=== PATIENT | female | born 2000 | race Caucasian/White ===

== ENCOUNTER 2025-10-10 09:37 | Emergency (ER) | payer OTHER, SELFPAY ==
--- NOTE | ~2025-10-10 | US_ITS ---
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 Findings: Uterus anteverted 8.9 x 3.4 x 4.7 cm, no intrauterine gestational sac is identified. Endometrium measures 3 mm. Right ovary 3.1 x 1.2 x 2.9 cm, no adnexal mass, normal flow. Left ovary 2.8 x 1.6 x 2.6 cm, no adnexal mass, normal flow. IMPRESSION: 1. No acute process identified. Reviewed, dictated and finalized at location P. PROCESS OPERATOR
[2025-10-10 09:46] VITALS: BP 135/84; PULSE 96; RESP 16; TEMP 36.7; O2SAT 98
[2025-10-10 10:03] LABS: Hematocrit 42.9 % (37.0-47.0); Hemoglobin 14.8 g/dL (12.0-15.0); Immature Granulocyte Percent A 0.5 % (0-0.5); Lymphocytes Absolute Auto 1.60 K/mm3 (0.9-3.2); Mean Corpuscular HGB Conc 34.5 g/dl (32-36); Mean Corpuscular Hemoglobin 30.6 pg (26-34); Mean Corpuscular Volume 88.8 fl (80-100); Nucleated Red Blood Cells Absolute Auto 0.000 K/mm3 (0.0-0.012); Nucleated Red Blood Cells Perc 0.0 % (0.0-0.2); Platelet Count Result 251 k/mm3 (150-375); Red Blood Count 4.83 M/mm3 (4.2-5.4); White Blood Count 8.0 K/mm3 (4.5-10.0)
--- NOTE | 2025-10-10 10:09 | ED_ITS ---
HPI - Female Genitourinary General Chief complaint: Vaginal Bleeding Stated complaint: 6 weeks , bleeding Time Seen by Provider: 10/10/25 10:06 Source: patient Mode of arrival: ambulatory Limitations: no limitations History of Present Illness HPI Narrative: Patient came to the ED with vaginal bleeding that began this morning. Patient report possible 6 weeks . The bleeding started as light pink spotting then got worse. With slight suprapubic cramps. Patient is 2 para 0 1. Related Data Allergies Allergy/AdvReac Type Severity Reaction Status Date / Time No Known Allergies Allergy Verified 10/10/25 09:49 Review of Systems 2 Review of Systems: All systems reviewed & are unremarkable except as noted in HPI and below Exam 2 Narrative: General appearance: Well-developed, well-nourished Skin: Normal color Head: Normocephalic, nontraumatic Eyes: Clear conjunctiva ENT: Oropharynx normal, ears normal, nose normal Neck: Supple, nontender Chest and respiratory: Airway patent, no respiratory distress, no accessory muscle use Heart: Regular rate/rhythm Abdomen: Soft, nontender, no organomegaly, quiet bowel sounds Vascular: Normal peripheral pulses, normal capillary refill. 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 is normal as tested, no gross motor deficit : External Female Exam: normal external appearance and normal appearance of the urethra Speculum Exam - Vagina: normal appearance of the vagina, normal palpation and vaginal bleeding (Vaginal pouch was dried using 2 long Q-tips) Speculum Exam - Cervix: Cervical os closed Course Vital Signs Vital signs: Vital Signs Temperature 36.7 C 10/10/25 09:46 Pulse Rate 96 10/10/25 09:46 Respiratory Rate 16 10/10/25 09:46 Blood Pressure 135/84 10/10/25 09:46 Pulse Oximetry 98 10/10/25 09:46 Oxygen Delivery Room Air 10/10/25 09:46 Temperature 36.7 C 10/10/25 09:46 Pulse Rate 82 10/10/25 12:20 Respiratory Rate 14 10/10/25 12:20 Blood Pressure 114/72 10/10/25 12:20 Pulse Oximetry 98 10/10/25 12:20 Oxygen Delivery Room Air 10/10/25 09:46 MDM - Female Genitourinary MDM Narrative Medical decision making narrative: Patient presents with badge bleed, questionable in the last few weeks Vital signs are stable Physical examination showing slight vaginal bleed otherwise within normal limit Differential diagnosis miscarriage, false complete , threatened Blood workup today showed normal CBC and CMP, beta hCG of 30 0.4 Urinalysis showed no evidence of infection. Bili consistent showed no acute process. Patient was advised to repeat beta-hCG in the next 5 days to rule out the possibility of miscarriage. Differential Diagnosis Differential diagnosis: Likely other (As above) Lab Data Attestation: I reviewed the patient's lab results. 10/10/25 09:54 10/10/25 09:54 Labs: Lab Results 10/10/25 10/10/25 Range/Units 09:53 09:54 WBC 8.0 (4.5-10.0) K/mm3 RBC 4.83 (4.2-5.4) M/mm3 Hgb 14.8 (12.0-15.0) g/dL Hct 42.9 (37.0-47.0) % MCV 88.8 (80-100) fl MCH 30.6 (26-34) pg MCHC 34.5 (32-36) g/dl RDW 12.6 (11.5-14.5) % Plt Count 251 (150-375) k/mm3 MPV 9.4 (7.4-10.4) fl Immature Gran % (Auto) 0.5 (0-0.5) % Neut % (Auto) 68.2 (45.5-73.1) % Lymph % (Auto) 20.1 (18.3-44.2) % [place] % (Auto) 9.4 H (2.6-8.5) % Eos % (Auto) 1.0 (0-4.4) % Baso % (Auto) 0.8 (0.2-1.2) % Lymph # (Auto) 1.60 (0.9-3.2) K/mm3 [place] # (Auto) 0.8 H (0.1-0.6) K/mm3 Eos # (Auto) 0.1 (0-0.3) K/mm3 Baso # (Auto) 0.1 (0.0-0.1) K/mm3 Abs Immat Gran (auto) 0.04 H (0.00-0.031) K/mm3 Absolute Neuts (auto) 5.4 (1.3-6.7) K/mm3 Absolute Nucleated RBC 0.000 (0.0-0.012) K/mm3 Nucleated RBC % 0.0 (0.0-0.2) % PT 12.1 (11.1-14.7) Seconds INR 0.9 APTT 23.5 (22.3-36.8) Seconds Sodium 137 (137-145) mmol/L Potassium 3.8 (3.4-5.0) mmol/L Chloride 104 (98-107) mmol/L Carbon Dioxide 24 (22-30) mmol/L Anion Gap 9 (4-12) mmol/L BUN 9 (7-17) mg/dL Creatinine 0.80 (0.7-1.0) mg/dL Estim Creat Clear Calc 101 ml/min Estimated GFR > 60 (59 - ) Glucose 103 (65-110) mg/dL Calcium 9.7 (8.4-10.2) mg/dL Total Bilirubin 0.8 (0.2-1.3) mg/dL AST 27 (14-36) U/L ALT 24 (6-35) U/L Alkaline Phosphatase 60 (38-126) U/L Total Protein 8.3 H (6.3-8.2) g/dL Albumin 4.9 (3.5-5.1) g/dL Beta HCG, Quant 30.41 mIU/ML Urine Color Yellow (Yellow) Urine Appearance Clear (Clear) Urine pH 5.0 (5.0-9.0) Ur Specific [place] 1.016 (1.001-1.035) Urine Protein Trace (Negative) mg/dL Urine Glucose (UA) Negative (Negative) mg/dL Urine Ketones Negative (Negative) mg/dL Ur Blood (Man) 3+ H (Negative) Urine Nitrate Negative (Negative) Urine Bilirubin Negative (Negative) Urine Urobilinogen 0.2 (<2.0) mg/dL Add Ur Microanalysis Reviewed Leukocyte Esterase Rfl 1+ H (Negative) FATOU/UL Urine RBC 21-50 H (0-2) /hpf Urine WBC 0-5 (0-3) /hpf Ur Squamous Epith Cells Few (Few) /hpf Urine Bacteria None seen /hpf Urine Casts 0-2 POC Urine HCG, Qual Negative (Negative) Blood Type A Positive Antibody Screen Negative Screen Not Reportable Baby's Blood Type Not Reportable Baby's CHEVY Not Reportable Doses of RhIg Required 0 Imaging Data Radiologist's impression: Pelvic ultrasound showed no acute process identified Critical Care Time Critical Care Time Critical Care Time: No Discharge Plan Discharge Clinical Impression: Threatened Patient Disposition: Home Condition: Stable Instructions: Threatened Miscarriage (ED) Additional Instructions: Return if symptoms are worsening , call your OBGYN for appointment, take Tylenol as as needed for aches and pain, continue home medications. Bed rest, pelvic rest Patient Language: Turkish Follow-up/Referrals: PHYSICIAN,ADMINISTRATIVE DIRECTOR [Non-Staff, Internal Medicine] Stand Alone Forms: Work/School Release IP
[2025-10-10 10:14] LABS: Alanine Aminotransferase 24 U/L (6-35); Albumin Level 4.9 g/dL (3.5-5.1); Alkaline Phosphatase 60 U/L (38-126); Anion Gap 9 mmol/L (4-12); Aspartate Amino Transferase 27 U/L (14-36); Bilirubin,Total 0.8 mg/dL (0.2-1.3); Blood Urea Nitrogen 9 mg/dL (7-17); Calcium 9.7 mg/dL (8.4-10.2); Carbon Dioxide 24 mmol/L (22-30); Chloride 104 mmol/L (98-107); Estimated CRCL calculation 101 ml/min; Estimated Glomerular Filt Rate > 60; Glucose 103 mg/dL (65-110); Potassium 3.8 mmol/L (3.4-5.0); Sodium 137 mmol/L (137-145); Total Protein 8.3 g/dL (6.3-8.2)
[2025-10-10 10:21] LABS: INR 0.9; Prothrombin Time 12.1 Seconds (11.1-14.7)
--- OUTSIDE RECORDS SUMMARY | 2025-10-10 10:21 | XMS_ITS | Data Portability ---
Author Organization [employer] , [facility] Address [address] [place] [address] Assessment No assessment recorded. Plan of Treatment Reminders Order Date Submit Date Provider Last Modified By Organization Details Last Modified Time Details Appointments None recorded. Lab bacterial vaginosis + vaginitis panel, vaginal 2023 024 [employer], [address] [place], [address], 4 13:37:45 pap, LB 2023 024 [employer] [facility], [address] [facility], [place], [address], 4 16:59:39 unlisted lab - Pap reflex hold 2023 024 [place] [address] Vennli Dave, [address] [place], [address], 4 13:27:58 Referral None recorded. Procedures None recorded. Surgeries None recorded. Imaging None recorded. Medication Orders NuvaRing 0.12 mg-0.015 mg/24 hr vaginal 2023 024 [employer] [id number], [address] [place], [place], [id number], 11:41:35 Patient TargetsNo targets recorded. Patient Instructions Encounter Date Encounter Id Patient Instructions Last Modified By Organization Details Last Modified Time 05/08/2024 [id number] safer sex: care instructions Not available 05/08/2024 11:41:28 sexually transmitted disease education Not available 05/08/2024 11:41:28 How to Prevent STIs Abstinence or waiting The simplest way of preventing STDs is by not having sex. Safer sex Only have sex with one uninfected partner who has only had safe sex with you. Talk to your partner about STIs. Find out if he/she has been tested or exposed to an STI. Discuss previous sexual activities and any injection drug use or shared needles. Talk openly about your history as well. Condoms Be sure to use them every time you have sex. Male latex condoms can reduce the risk of getting an STI if used correctly. Female condoms can also be used as an alternative to a male condom. Vaccines for STIs Some STIs, such as Hepatitis A, Hepatitis B and certain strains of human papillomavirus (HPV) that cause genital warts and cervical cancer, can be prevented through the use of vaccines. Not available 05/10/2024 18:53:04 Reason for Referral None Reported. Results Created Date Observation Date Name Description Value Unit Range Abnormal Flag Note LastModifiedBy Organization Detail LastModifiedTime 05/08/20 24 05/11/2024 VAGIN ITIS PLUS STD PANEL bacterial vaginosis BV POS negati ve abnormal Not Available [employer] [address] [place] [address], [address], 05/11/2024 13:37:45 05/08/20 24 05/11/2024 VAGIN ITIS PLUS STD PANEL hoda species C. spp neg negati ve normal Not Available [employer] [place], [address], 05/11/2024 13:37:45 05/08/20 24 05/11/2024 VAGIN ITIS PLUS STD PANEL hoda glabrata C. gla neg negati ve normal [place], [address], 05/11/2024 13:37:45 05/08/20 24 05/11/2024 VAGIN ITIS PLUS STD PANEL trichomonas vaginalis CV/TV TRICH neg negati ve normal [place], [address], 05/11/2024 13:37:45 05/08/20 24 05/11/2024 VAGIN ITIS PLUS STD PANEL chlamydia trachomatis CT neg negati ve normal This repor t is inten ded for us in clini harinder monit oring and manag ement of patie nts. It is not inten ded for use in medic al-le gal appli catio n. Not Available [address], [address], 05/11/2024 13:37:45 05/08/20 24 05/11/2024 VAGIN ITIS PLUS STD PANEL neisseria gonorrhoeae GC neg negati ve normal This repor t is inten ded for us in clini harinder monit oring and manag ement of [facility] nts. It is not inten ded for use in medic al-le gal appli catio n. Not Available [facility] [address] [place], [address], 05/11/2024 13:37:45 05/08/20 24 05/12/2024 THINP REP TIS PAP clinical information: normal None given Not Available [employer] [address] [place], [address], 05/12/2024 16:59:39 05/08/20 24 05/12/2024 THINP REP TIS PAP LMP: normal NONE GIVEN Not Available [employer] [place] [address] [place], [address], 05/12/2024 16:59:39 05/08/20 24 05/12/2024 THINP REP TIS PAP prev. Pap: normal NONE GIVEN Not Available [facility] [address] [place], [address], 05/12/2024 16:59:39 05/08/20 24 05/12/2024 THINP REP TIS PAP prev. BX: normal NONE GIVEN Not Available [facility] [place] [address] [place], [address], 05/12/2024 16:59:39 05/08/20 24 05/12/2024 THINP REP TIS PAP source: normal Cervi x Not Available [place] [address] [place], [address], 05/12/2024 16:59:39 05/08/20 24 05/12/2024 THINP REP TIS PAP statement of adequacy: normal Satis facto ry for evalu ation . Endoc ervic al/tr ansfo rmati on zone compo nent prese nt. Age and/o r menst rual statu s not provi ded Not Available [place] [address] [place], [address], 05/12/2024 16:59:39 05/08/20 24 05/12/2024 THINP REP TIS PAP interpretati on/result: normal Cytol ogy Resul ts: Negat los for intra epith elial lesio n or malig olga . Not Available [place] [address] [place], [address], 05/12/2024 16:59:39 05/08/20 24 05/12/2024 THINP REP TIS PAP infection: normal Shift in vagin al russell sugge stive of bacte rial vagin osis. Not Available [place] [address] [address] [place], [address], 05/12/2024 16:59:39 05/08/20 24 05/12/2024 THINP REP TIS PAP comment: normal This Pap test has been evalu ated with compu ter vicenta jasmine techn ology . Not Available [place] [address] [address] [place], [address], 05/12/2024 16:59:39 05/08/20 24 05/12/2024 THINP REP TIS PAP cytotechnolo gist: normal MEF, CT( CP) CT scree crissy locat ion: [place] [address] [place] [address] Not Available [address] [place], [address], 05/12/2024 16:59:39 05/08/20 24 05/12/2024 THINP REP TIS PAP comment EXPLA ANGELES Ackerman NOTE: The Pap is a scree crissy test for cervi harinder cance r. It is not a diagn ostic test and is subje ct to false negat los and false posit los resul ts. It is most relia ble when a satis facto ry sampl e, regul bouchra obtai jeannine, is submi tted with relev ant clini harinder findi ngs and histo ry, and when the Pap resul t is evalu ated along with histo ihsan and curre nt clini harinder infor matio n. Not Available [facility] [address] , [place], [address], 05/12/2024 16:59:39 Result Notes None recorded. Problems Name Problem SNOMED Code Status Onset Date Resolution Date Notes Provider Name and Address Organization Details Recorded Time Bacterial vaginosis 255913258 Active 024 Galdino King, [facility] [address] [place], [address], [facility] [employer] [facility] 20:15:30 Problem Notes None recorded. Medical Equipment None Reported. Allergies No known drug allergies Medications Name Sig Start Date Stop Date Status Note LastModified by Organization Details LastModified Time metronidazo le 500 mg tablet TAKE 1 TABLET BY MOUTH TWICE DAILY FOR 7 DAYS active Not Available Not Available No t Available oseltamivir 75 mg capsule TAKE 1 CAPSULE BY MOUTH TWICE DAILY FOR 5 DAYS 05/08 completed Not Available Not Available Not Available ondansetron 4 mg disintegrat ing tablet 05/08 completed Not Available Not Available Not Available Haloette 0.12 mg-0.015 mg/24 hr vaginal ring INSERT 1 RING VAGINALLY EVERY MONTH active Not Available Not Available No t Available Vitals None Recorded Social History Question Answer Notes LastModified by Organizat ion Details LastModified Time Tobacco Smoking Status Current Every Day Smoker Betina mcgarry, [employer] [facility] 05/08/2024 11:02:33 If You Are , What Was Your Level Of Alcohol Consumption Prior To ? None Information not available 05/08/2024 How Many Years Have You Consumed Alcohol? 3 Information not available 05/08/2024 Are You Blind Or Do You Have Difficulty Seeing? No Information not available 05/08/2024 Are You Deaf Or Do You Have Serious Difficulty Hearing? No Information not available 05/08/2024 What Type Of Diet Are You Following? REGULAR Information not available 05/08/2024 Which Illicit Or Recreational Drugs Have You Used? Cannabis Information not available 05/08/2024 How Many Children Do You Have? 0 Information not available 05/08/2024 What Is Your Relationship Status? Single Information not available 05/08/2024 Are You Sexually Active? Yes Information not available 05/08/2024 At What Age Did You Start Smoking Tobacco? 18 Information not available 05/08/2024 How Much Tobacco Do You Smoke? 1 PPW Information not available 05/08/2024 How Many Years Have You Smoked Tobacco? 5 Information not available 05/08/2024 Sex: Unknown Functional Status Question Answer Note LastModified by Organizat ion Details LastModified Time How many times per week do you consume alcohol? 1-2 times per week Information not available 05/08/2024 Do you use any illicit or recreational drugs? Yes Information not available 05/08/2024 What is your level of alcohol consumption? Moderate Information not available 05/08/2024 Are you currently employed? Yes Information not available 05/08/2024 What is your exercise level? Occasional Information not available 05/08/2024 Mental Status None recorded. Family History Relationship Description Onset Age of this Age Resolved Age Notes LastModified by Organization Details LastModified Time Maternal Grandmother Malignant neoplasm of breast Not available 2023 11:02:33 Maternal Grandmother Malignant neoplasm of ovary Not available 2023 11:02:33 Maternal Grandfather Hypertensive disorder Not available 2023 11:02:33 Medical History Condition Response Anxiety Disorder Y Bipolar Disorder Y Gynecological History Statement/Question Response Date of Last Colonoscopy Flow Heavy Frequency of Cycle (Q days) 33 Date of LMP 05/03/2024 Most Recent Bone Density HPV Vaccine Y Duration of Flow (days) 5 Most Recent Mammogram Current Control Method Condoms Age at Menarche 15 Obstetrics History GPAL:G 0 P 0 0 0 0 Type Value Living 0 Total 0 Past Encounters Encounter ID Performer Location Encounter Start Date Encounter Closed Date Diagnosis/Indication Diagnosis SNOMED-CT Code Diagnosis ICD10 Code Diagnosis IMO Codes Diagnosis Note [id number] SOCO Humphrey [facility] h [address] [place] [address] 05/08/2024 10:48:27 05/08/2024 13:45:42 Venereal disease screening 563452723 Z11.3 Discussed the various types of STDs, related symptoms and the potential consequenc es (including effects on fertility) of STD infections . Reviewed ways to limit exposure and prevention techniques . Family vane nning education 812278036 Z30.8 *Contracep tive counseling : Discussed other control options, including BCPs, depo-prove ra, NuvaRing, hormonal and copper IUDs.*Disc ussed risks, efficacy, no-non-con traceptive benefits, and side effects of each option,inc luding risk of VTE with hormonal contracept ion and uterine perforatio n, expulsion, infection with IUD. Lori decided to try Nuvaring Combinatio n contracept ion may cause nausea, headaches, breast tenderness , and increased B/P. Slight increased risk for VTE. If headaches, eye problems, chest-, abdominal, and and/or leg pains, stop the control and go to the ER. Reviewed correct usage of the vaginal ring. R/B, explained ACHES. Additional diagnosis detail: Encounter for other contracept los management Screening for malignant neoplasm of cervix 262074990 Z12.4 Cervical cancer screening is used to find abnormal changes in the cells of the cervix that could lead to cancer. Screening includes the Pap test and, for some women, testing for a virus called human papillomav irus (HPV). The main cause of cervical cancer is infection with HPV. Additional diagnosis detail: Encounter for screening for malignant neoplasm of cervix Health Concerns Section Related Observation LastModified by Organization Detai ls LastModified Time None Recorded Concern Status LastModified by Organization Details LastModified Time None Recorded Advance Directives Directive None Recorded Payers Insurance Date Sequence Insurance Name Policy Number Policy Coyle Covered Member ID Coyle Member ID Guarantor Name 05/08/2024 1 [facility] - DOS ON OR AFTER 21 (MEDICAID REPLACEMENT - HMO) Lori Lucas [id number] Lori Lucas 05/08/2024 1 [place] Lori Lucas [id number] Lori Lucas Notes Date Note Type Note Provider Name and Address Organization Details Recorded Time 4 text/html STD screeningReported by PatientDischargeFor associated symptoms, patient reportsvaginal itchingbut reportsno vaginal burning,no swelling/redness,no fever/chills,no diarrhea,no abdominal pain,no pelvic pain,no vaginal pain,no pain during urination,no pain during intercourse,no vaginal lump,no genital lesion,no sexually transmitted disease, andno fever. For location, patient reportsvagina. For quality, patient reportsyellow-green, thick. For duration, patient reportssymptoms lasting over 2 weeks. For context, patient reportsnew sexual partner. Lori, a new patient, presents for STI screening and complains of vaginal itching and yellow discharge that has persisted for over a month. Her last menstrual period was on May 03, 2024. She expresses a desire to discuss control options and the possibility of a pap smear. She has never had a pap smear. She did receive the Gardasil vaccine. Lori recently had her Nexplanon implant removed. She wants to discuss other control options. States she bled continuously on Nexplanon. She reports experiencing severe cramps and heavy periods during the first three days of her menstrual cycle, which occurs every 33 days SOCO Humphrey [address] [facility], [place], [address], [facility] 05/10/2024 18:59:21 OBGyn Episode No OBEpisode recorded.
--- OUTSIDE RECORDS SUMMARY | 2025-10-10 10:21 | XMS_ITS | Clinical Summary ---
Author Organization [address] Address [address] [place] [address] Care Team Providers Care Grants Assistant Name Role Phone Nadege Nath MD Primary Care Provider [phone] Allergies No known active allergies Medications ondansetron (ZOFRAN ODT) 4 mg Tablet, Rapid Dissolve DISSOLVE 1 TABLET ON THE TONGUE EVERY 6 HOURS NEEDED FOR NAUSEA Active propranoloL (INDERAL) 10 mg tablet 1 tablet on an empty stomach Orally daily; Duration: 30 days 09/17/20 Active EnilloRing 0.12-0.015 mg/24 hr Ring INSERT 1 RING VAGINALLY EVERY MONTH 08/01/20 24 025 Discontinued lurasidone (LATUDA) 20 mg Tablet tabletIndicati ons:Bipolar 1 disorder (CMS/HCC) Take 1 Tablet (20 mg) by mouth daily with supper. 30 Tablet 11 12/09/19 25 025 Discontinued fluconazole (DIFLUCAN) 150 mg tablet Take 1 Tablet (150 mg) by mouth daily. 2 Tablet 08/03/20 25 025 Discontinued ARIPiprazole (ABILIFY) 10 mg tablet Take 1 Tablet by mouth daily. 07/02/20 25 025 Discontinued busPIRone (BUSPAR) 10 mg tablet 1 tablet Orally 3 times a day; Duration: 30 days 09/17/20 25 025 Discontinued hydrOXYzine HCL (ATARAX) 25 mg tablet 1 tablet Orally three times a day; Duration: 30 days As needed 09/17/20 25 025 Discontinued lithium carbonate 450 mg Controlled Release tablet 1 tablet at bedtime Orally Once a day; Duration: 30 days 09/17/20 025 Discontinued Active Problems Problem Noted Date Diagnosed Date Bipolar 1 disorder BEKA (generalized anxiety disorder) Encounters Date Type Department Care Team Description 10/04/2025 8:00 AM TRAINING EXECUTIVE Office Visit [facility] [place] [address] Domenica Chowdary PA-C Encounter for routine adult health examination with abnormal findings (Primary Dx); examination or test, negative result; Missed period; BEKA (generalized anxiety disorder); Bipolar 1 disorder ([facility]); Nicotine use disorder; Nondependent cannabis abuse 10/04/2025 Results Follow-Up [facility] [place] [address] Domenica Chowdary PA-C POC , URINE, HCG QUALITATIVE, BLOOD 09/07/2025 External Device Data [facility] ABSTRACTION Provider, Abstract 08/03/2025 External Device Data [facility] ABSTRACTION Provider, Abstract 08/03/2025 Telephone [facility] [place] [address] [place] [address] Nadege Nath MD Medication Refill from Last 3 Months Immunizations Immunization Administration Dates Next Due INFLUENZA VACCINE TRIVALENT SPLIT VIRUS, (6 MOS UP), 0.5ML (PF), IM 09/21/2024 Influenza Seasonal Unspecified Formulation IM Family History Medical History Relation Name Comments Brain Cancer Father Hypertension Maternal Grandfather Breast Cancer Maternal Grandmother Throat Cancer Paternal Grandfather Relation Name Status Comments Brother Alive Father Maternal Grandfather Alive Maternal Grandmother Alive Mother Alive Paternal Grandfather Paternal Grandmother Alive Social History Tobacco Use Types Packs/Day Years Used Date Smoking Tobacco: Former Cigarettes Smokeless Tobacco: Never Tobacco Cessation:Counseling Given: No Alcohol Use Standard Drinks/Week Comments Yes 0 (1 standard drink = 0.6 oz pur e alcohol) 2 times per month Comments No Sex and Gender Information Value Date Recorded Sex Assigned at Not on file Legal Sex Female 12:03 PM CDT Gender Identity Not on file Sexual Orientation Not on file Last Filed Vital Signs Vital Sign Reading Time Taken Comments Blood Pressure 132/80 10/04/2025 8:01 AM TRAINING EXECUTIVE Pulse 79 10/04/2025 8:01 AM TRAINING EXECUTIVE Temperature 35.7 C (96.3 F) 10/04/2025 8:01 AM TRAINING EXECUTIVE Respiratory Rate 18 10/04/2025 8:01 AM TRAINING EXECUTIVE Oxygen Saturation 99% 10/04/2025 8:01 AM TRAINING EXECUTIVE Inhaled Oxygen Concentration - - Weight 77.8 kg (171 lb 9.6 oz) 10/04/2025 8:01 A M TRAINING EXECUTIVE Height 167.6 cm (5' 6) 10/04/2025 8:01 AM TRAINING EXECUTIVE Body Mass Index 27.7 10/04/2025 8:01 AM TRAINING EXECUTIVE Plan of Treatment Upcoming Encounters Date Type Department Care Team (Late st Contact Info) Description 10/04/2026 8:00 AM TRAINING EXECUTIVE Office Visit [facility] [address] [address] Nadege Nath MD [address] [place] [phone] Health Maintenance Due Date Last Done Comments CHLAMYDIA SCREENING (ANNUAL) 11-24 YEARS 2013 HPV VACCINES (1 - 3-dose series) 2017 DTAP/TDAP/TD VACCINES (1 - Tdap) 2021 HEPATITIS B VACCINES (1 of 3 - 19+ 3-dose series) 2021 CERVICAL CANCER SCREENING 2023 HPV/Cotest (21-29) 2023 PAP SMEAR 2023 INFLUENZA VACCINE (#1) 2025 09/21/2024, 2019 Preventative Visit- Commercial Completed 10/04/2025 , 09/21/2024 Procedures Procedure Name Priority Date/Time Associated Diagnosis Comments HCG QUALITATIVE, SERUM Routine 10/04/2025 10:00 AM TRAINING EXECUTIVE Missed period POC , URINE Routine 10/04/2025 8:10 AM TRAINING EXECUTIVE examination or test, negative result from Last 3 Months Results * (ABNORMAL) HCG QUALITATIVE, BLOOD (10/04/2025 10:00 AM TRAINING EXECUTIVE) HCG QUAL, BLOOD POSITIVE(A ) See Note: [facility] Comment: Reference Range: Reference Range Non-: Negative : Positive FASTING:NO FASTING: NO Test Performed at: [facility] [address] [place] [address] Marquis Hayes MD Blood 10/04/2025 10:0 0 AM TRAINING EXECUTIVE 10/04/2025 10:00 AM TRAINING EXECUTIVE Domenica Chowdary PA-C CHEMISTRY ORDERABLES Fin al Result [facility] [phone] [facility] [address] [place] [address] * POC , URINE (10/04/2025 8:10 AM TRAINING EXECUTIVE) HCG QUAL URINE POC Negative Negative, Indeterminate [facility] INTERNAL KIT QC POC [place] [facility] KIT LOT NUMBER POC [id number] [facility] KIT EXP DATE POC [id number] [facility] Urine 10/04/2025 8:10 AM TRAINING EXECUTIVE Domenica Chowdary PA-C POINT OF CARE TESTING Fi nal Result [facility] CLIA# [id number] [facility] [place], [place] [phone] from Last 3 Months Insurance [employer] CHOICE POS II Care Teams Grants Assistant Relationship Specialty Start Date End Date Nadege Nath MD [address] [place] [phone] PCP - General Family Practice 11/02/24
[2025-10-10 10:22] LABS: Partial Thromboplastin Time 23.5 Seconds (22.3-36.8)
--- OUTSIDE RECORDS SUMMARY | 2025-10-10 10:22 | XMS_ITS | Patient Health Record ---
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 and increase adverse effects (e.g., sedation) of the medication. Avoid low sodium diets and dehydration because this can increase the risk of lithium toxicity. Avoid over the counter and prescription pain medications that contain nonsteroidal anti-inflammator y medications (NSAIDS) such as ibuprofen (Motrin, Advil) or naproxen (Aleve, Naprosyn) because these medications can increase the risk of toxicity from lithium. Avoid excessive intake of caffeinated beverages, such as coffee, tea, cola or energy drinks, since these may decrease levels of lithium and decrease effectiveness of the medication. Discontinuing caffeine use may increase lithium levels. Consult your health care provider before reducing or stopping caffeine use. What are the possible side effects of lithium? Common side effects Headache Nausea or vomiting Diarrhea Dizziness or drowsiness Changes in appetite Hand tremors Dry mouth Increased thirst Increased urination Thinning of hair or hair loss Acne-like rash Rare/Serious side effects Signs of lithium toxicity include severe nausea and vomiting, severe hand tremors, confusion, vision changes, and unsteadiness while standing or walking. These symptoms need to be addressed immediately with a medical doctor to ensure your lithium level is not dangerously high. In rare cases, lithium may lead to a reversible condition known as diabetes insipidus. If this occurs you would notice a significant increase in thirst and how much fluid you drink and how much you urinate. Talk to your doctor if you notice you are urinating more frequently than usual. Are There Any Risks For Taking [place] For Long Periods Of Time? Hypothyroidism (low levels of thyroid hormone) may occur with long-term lithium use. Rare kidney problems have been associated with long-term use of lithium. The risk increases with high levels of lithium. Your doctor will monitor your kidney function at routine check-ups to ensure this does not occur. Summary of Black Box Warnings [place] Toxicity [place] toxicity is closely related to lithium blood levels and can occur at doses close to therapeutic levels; lithium levels should be monitored closely when starting the medication or if individuals experience side effects of the medication. 2. Anxiety Therapy- see walk in clinic [facility] discuss coping skills Buspar 10 mg three times a day Vistaril 25 mg up to 3x day PRN for anxiety and panic Start Propranolol 10 mg daily prn for anxiety and panic educated on all rx and monitor B/P 3. Nicotine use- vaping Do not smoke. Nicotine and other chemicals in cigarettes and cigars can cause lung damage. Ask your healthcare provider for information if you currently smoke and need help to quit. E-cigarettes or smokeless tobacco still contain nicotine. Talk to your healthcare provider before you use these products. education on decrease to stopping nicotine products and stop smoking hotline given -Quit - Yes [place] Tobacco Quitline Call a Smoking Quitline The [employer] [place]'s Smoking Quitline, (4-827-69O-QUIT) Smokefree.gov, which connects you with your State's Quitline, (9-488-PPJOLTM) Veterans Smoking Quitline, (1-033-QLUZVJV) 4. cannabis Cannabis Use Education Recommend decrease/stop cannabis use as it can negatively impact mood, motivation, anxiety, sleep, focus/concentrat ion/memory (vigilance, elasticity, processing and attention); can also contribute to development of psychosis. Recommend decrease/stop cannabis use as it may be negatively impacting mood, motivation, anxiety, sleep, focus; can also contribute to development of psychosis Cannabis/marijua na information: http__s://shreya.n ih.gov/publicati ons/drugfacts/[place] nnabis-marijuana http__s://[employer].Given.to/ca hfdzse-tty-bfcza qpt-ugajpcxrr-gv hd/ 5. Passive suicidal thoughts no plans or intent denies SI/HI no active thoughts NO thoughts harm to self or others discuss go to nearest ER if have active thoughts, increase passive thoughts, plans or intent saftey plan discuss [phone] discuss support system [place] added and educated Evidence suggests an active lifestyle and achieving and maintaining an ideal body weight (20-25 BMI) is optimal for health. Experts recommend at least 30 minutes of moderate to vigorous activity per day as tolerated, 5 days a week Eat healthy, including plenty of fresh fruits and vegetables daily. Strive to have 2/3 cup of your plate to be vegetables, fruits, whole grains and beans, while 1/3 or less should be an animal product. Choose fish and chicken and limit red meat and processed meats. Assess dietary pattern for daily intake of fruits, vegetables, and whole grains, as well as red and processed meats, alcohol, and processed foods or beverages with added fats and/or sugars. Assess timing of meals and snacking habits, portion size, frequency of eating out, and use of added fats and/or sugars to foods or beverages. All survivors should be encouraged to: Follow a predominantly nutrient-rich plant-based diet, including vegetables, fruit, and whole grains. Make informed choices about food to ensure variety and adequate nutrient intake. Limit consumption of red meat such as beef, pork, or valdez to no more than 18 ounces (cooked) per week. Eat processed meats such as ham, hot dogs, deli cuts, weeks, and sausage sparingly if at all. Limit consumption of fast foods and other processed foods that are high in fat, starches, or sugars such as chips, cookies, candy bars, desserts, processed baked goods, sugary cereals, and fried foods. Limit refined sugars to <6 tsp (25 g) for a 2000-calorie daily diet and <9 tsp (38 g) for a 3000-calorie daily diet. One medium cookie has about 2 tsp of sugar; a 12-oz can of a soft drink has about 10 tsp. Track calorie intake. Self-monitoring of food and beverage intake has been shown to be an effective strategy for weight management. Prolonged periods of fasting may impair adequate caloric and nutrient intake. Drink alcohol sparingly if at all. Lower levels of alcohol consumption are associated with a lower risk of cancer. For patients desiring further recommendations for dietary guidelines: Consider referral to a registered dietitian or brush polisher. The USDA approximate food plate volumes (http_s://www.my plate.gov) are: Vegetables and fruits should comprise half the volume of food on the plate Vegetables: 30% of plate; fruits 20% of plate Whole grains: 30% of plate Protein: 20% of plate Recommended sources of dietary components: Fat: plant sources such as olive or canola oil, avocados, seeds and nuts, and fatty fish Carbohydrates: fruits, vegetables, whole grains, and legumes Protein: poultry, fish, legumes, low-fat dairy foods, and nuts While the risks and benefits of soy foods for cancer survivors have been debated for many years, most studies to date show that moderate consumption of soy foods (up to 3 servings per day) are beneficial in promoting overall health and survival, with the strongest evidence existing for the prevention of lung cancer and reduction of breast cancer recurrence. Practice portion control. Make informed food choices through routine evaluation of food labels. Incorporate physical activity, particularly strength training, to assure optimal lean body mass (SPA-1). Track weight, diet, calories, and physical activity routines (eg, journaling, mobile phone apps). Limit alcohol intake to one drink per day or less for a woman and two drinks or less per day for a man. Avoid smoking! educated on all medications, benefits, side effects and risk, and educated on depression, anxiety, and ADHD, mood d/o and educated on compliance of medications, metabolic and movement d/o education appointment is, continue therapy discussion with patient about course of treatment and patient instructions. education on serotonin syndrome SSRI/SNRI side effects discussed including but not limited to, gastric upset, nausea, vomiting, diarrhea and/or constipation, weight changes, sexual side effects including loss of libido, increased suicidal thoughts/behavio rs in children and young adults, and serotonin syndrome. Second generation antipsychotics (SGAs) have metabolic syndrome issues with weight gain, increase in prolactin, increased waist circumference, increased lipids, and increased glucose. Thus routine monitoring of weight, metabolic labs, etc. is indicated. A general rank ordering of antipsychotics that have the greatest to the least risk of metabolic effects is olanzapine, quetiapine, risperidone, ziprasidone, and aripiprazole. However, weight gain can occur with all of these drugs and considerable variability exists among patients receiving the same drug regarding the risk of metabolic effects. Anti-psychotic agents not only increase the risk of metabolic disorder, they also increase the risk of CVA, akathisia, and movement disorders including EPS or tardive dyskinesia (more common with first generation antipsychotics) and more. Medication Management and Follow-Up - Plan: - Schedule follow-up appointments every 1-3 months to monitor the patient's response to the medication regimen. - Reinforce the importance of avoiding recreational drug use due to potential neurotoxicity and interactions with prescribed medications. 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 websites http_s://www.nim h.nih.gov/health /topics/mental-h ealth-medication s http_s://www.nam i.org/About-Ment al-Illness/Treat ments/Mental-Hea lth-Medications http_s://www.nam i.org/About-Ment al-Illness/Menta c-Smbclv-Czgdmwv ons http_s://[employer]/depres sumeet/the-cogniti qy-fktztued-hi-d epression#treatm ents http__s://www.ni .nih.gov/healt h/topics/mental- health-medicatio ns http__s://www.na mi.org/About-Men camelia-Illness/Marissa tments/Mental-He alth-Medications http_s://shreya. h.gov/publicatio ns/drugfacts/can nabis-marijuana http_s://www.[employer]/can jjntj-chm-whagpm of-sbsqytpst-hrp d/ 07/30/2025 Nicotine use (ICD-10 - Z72.0) Deciding About Using Medicines To Quit Smoking material was published, Quitting Tobacco: Care Instructions material was published, Stopping Smokeless Tobacco Use: Care Instructions material was published, Learning About Benefits of Quitting Smoking material was published, Stopping Smokeless Tobacco Use: Care Instructions material was published, Learning About Benefits of Quitting Smoking material was published, Quitting Tobacco: Care Instructions material was published, Deciding About Using Medicines To Quit Smoking material was published, Quitting Tobacco: Care Instructions material was published, Learning About Benefits of Quitting Smoking material was published, Deciding About Using Medicines To Quit Smoking material was published 1. Bipolar depression Abilify 10 mg at evening - discuss and educated on [place] for depression, irritable and suicide prevention educated on rx refer to therapy [facility] Start [place] 300 mg ER AT BEDTIME educated on medication. [place] education [place] use reviewed. Risks include risks of toxicity, arrhythmias, cognitive impairment, changes in muscle coordination, weight gain, thyroid and parathyroid changes, polydipsia and polyuria, alopecia, tremor and teratogenicity ( defects). Recommend avoid in females (use contraception consistently). Routine lab monitoring may be required. Patient consented to treatment. Indications: acute erlin (euphoric erlin), bipolar prophylaxis, bipolar depression treatment or augmentation, unipolar depression as augmentation with antidepressants Average dose = I,500 mg/day, target serum level 0.8 [place] is known to reduce risk of suicide. Mechanism of action: inhibits inositol monophosphatase, interfering with 2nd messengers Nuisance Side Effects: sedation, cognitive difficulties, decreased creativity, dry mouth, tremor, increased appetite, weight gain, polydipsia, polyuria, nausea, diarrhea, acne, alopecia Serious Side Effects: Thyroid: hypothyroidism (5%), goiter (3%) Cardiac: decrease in cardiac conduction leading to sick sinus syndrome, blocks SA node Teratogenicity: Ebstein's anomaly 2 in 1,000 Renal: chronic renal insufficiency (after 10-20 years), acute renal failure, polyuria occurs in 50-70% [lithium antagonizes anti-diuretic hormone (ADH)], diabetes insipidus in 10% (treat with amiloride) Drug-drug interactions: increase in lithium: NSAIDs, JOSEPHINE inhibitors, angiotensin II antagonists If you are planning on becoming , notify your health care provider so that he/she can best manage your medications. People living with bipolar disorder who wish to become face important decisions. It is important to discuss the risks and benefits of treatment with your doctor and caregivers. [place] has been associated with an increased risk of Ebstein's anomaly, a heart valve defect. Even though data suggest that the risk of Ebstein's anomaly from first trimester use of lithium is very low, an ultrasound of the heart is recommended at 16 to 20 weeks of gestation. [place] levels should be monitored monthly in early and weekly near delivery. Do not stop taking lithium without first speaking to your health care provider. Discontinuing mood stabilizer medications during has been associated with a significant increase in symptom relapse. If an overdose occurs call your doctor or 911. You may need urgent medical care. You may also contact the poison control center at . A specific treatment to reverse the effects of lithium does not exist, but there are treatments to decrease the effects of the medication. Only a doctor can determine if you require treatment. Avoid drinking alcohol or using illegal drugs while you are taking lithium. They may decrease the benefits (e.g., worsen your condition) and increase adverse effects (e.g., sedation) of the medication. Avoid low sodium diets and dehydration because this can increase the risk of lithium toxicity. Avoid over the counter and prescription pain medications that contain nonsteroidal anti-inflammator y medications (NSAIDS) such as ibuprofen (Motrin, Advil) or naproxen (Aleve, Naprosyn) because these medications can increase the risk of toxicity from lithium. Avoid excessive intake of caffeinated beverages, such as coffee, tea, cola or energy drinks, since these may decrease levels of lithium and decrease effectiveness of the medication. Discontinuing caffeine use may increase lithium levels. Consult your health care provider before reducing or stopping caffeine use. What are the possible side effects of lithium? Common side effects Headache Nausea or vomiting Diarrhea Dizziness or drowsiness Changes in appetite Hand tremors Dry mouth Increased thirst Increased urination Thinning of hair or hair loss Acne-like rash Rare/Serious side effects Signs of lithium toxicity include severe nausea and vomiting, severe hand tremors, confusion, vision changes, and unsteadiness while standing or walking. These symptoms need to be addressed immediately with a medical doctor to ensure your lithium level is not dangerously high. In rare cases, lithium may lead to a reversible condition known as diabetes insipidus. If this occurs you would notice a significant increase in thirst and how much fluid you drink and how much you urinate. Talk to your doctor if you notice you are urinating more frequently than usual. Are There Any Risks For Taking [place] For Long Periods Of Time? Hypothyroidism (low levels of thyroid hormone) may occur with long-term lithium use. Rare kidney problems have been associated with long-term use of lithium. The risk increases with high levels of lithium. Your doctor will monitor your kidney function at routine check-ups to ensure this does not occur. Summary of Black Box Warnings [place] Toxicity [place] toxicity is closely related to lithium blood levels and can occur at doses close to therapeutic levels; lithium levels should be monitored closely when starting the medication or if individuals experience side effects of the medication. 2. Anxiety Therapy- see walk in clinic [facility] discuss coping skills Buspar 10 mg three times a day Vistaril 25 mg up to 3x day PRN for anxiety and panic Start Propranolol 10 mg daily prn for anxiety and panic educated on all rx and monitor B/P 3. Nicotine use- vaping Do not smoke. Nicotine and other chemicals in cigarettes and cigars can cause lung damage. Ask your healthcare provider for information if you currently smoke and need help to quit. E-cigarettes or smokeless tobacco still contain nicotine. Talk to your healthcare provider before you use these products. education on decrease to stopping nicotine products and stop smoking hotline given Quit - Yes [place] Tobacco Quitline Call a Smoking Quitline The [employer] [place]'s Smoking Quitline, (3-730-50Z-QUIT) Smokefree.gov, which connects you with your State's Quitline, (7-555-VRWQWOP) Veterans Smoking Quitline, (1-220-KWSKRPW) 4. cannabis Cannabis Use Education Recommend decrease/stop cannabis use as it can negatively impact mood, motivation, anxiety, sleep, focus/concentrat ion/memory (vigilance, elasticity, processing and attention); can also contribute to development of psychosis. Recommend decrease/stop cannabis use as it may be negatively impacting mood, motivation, anxiety, sleep, focus; can also contribute to development of psychosis Cannabis/marijua na information: http__s://shreya.n ih.gov/publicati ons/drugfacts/[place] nnabis-marijuana http__s://[employer].Given.to/ca dmdntp-mls-fhcnq joo-kfudmauxi-er hd/ 5. Passive suicidal thoughts no plans or intent denies SI/HI no active thoughts NO thoughts harm to self or others discuss go to nearest ER if have active thoughts, increase passive thoughts, plans or intent saftey plan discuss [phone] discuss support system [place] added and educated Evidence suggests an active lifestyle and achieving and maintaining an ideal body weight (20-25 BMI) is optimal for health. Experts recommend at least 30 minutes of moderate to vigorous activity per day as tolerated, 5 days a week Eat healthy, including plenty of fresh fruits and vegetables daily. Strive to have 2/3 cup of your plate to be vegetables, fruits, whole grains and beans, while 1/3 or less should be an animal product. Choose fish and chicken and limit red meat and processed meats. Assess dietary pattern for daily intake of fruits, vegetables, and whole grains, as well as red and processed meats, alcohol, and processed foods or beverages with added fats and/or sugars. Assess timing of meals and snacking habits, portion size, frequency of eating out, and use of added fats and/or sugars to foods or beverages. All survivors should be encouraged to: Follow a predominantly nutrient-rich plant-based diet, including vegetables, fruit, and whole grains. Make informed choices about food to ensure variety and adequate nutrient intake. Limit consumption of red meat such as beef, pork, or valdez to no more than 18 ounces (cooked) per week. Eat processed meats such as ham, hot dogs, deli cuts, weeks, and sausage sparingly if at all. Limit consumption of fast foods and other processed foods that are high in fat, starches, or sugars such as chips, cookies, candy bars, desserts, processed baked goods, sugary cereals, and fried foods. Limit refined sugars to <6 tsp (25 g) for a 2000-calorie daily diet and <9 tsp (38 g) for a 3000-calorie daily diet. One medium cookie has about 2 tsp of sugar; a 12-oz can of a soft drink has about 10 tsp. Track calorie intake. Self-monitoring of food and beverage intake has been shown to be an effective strategy for weight management. Prolonged periods of fasting may impair adequate caloric and nutrient intake. Drink alcohol sparingly if at all. Lower levels of alcohol consumption are associated with a lower risk of cancer. For patients desiring further recommendations for dietary guidelines: Consider referral to a registered dietitian or brush polisher. The USDA approximate food plate volumes (http_s://www.Bringrs plate.gov) are: Vegetables and fruits should comprise half the volume of food on the plate Vegetables: 30% of plate; fruits 20% of plate Whole grains: 30% of plate Protein: 20% of plate Recommended sources of dietary components: Fat: plant sources such as olive or canola oil, avocados, seeds and nuts, and fatty fish Carbohydrates: fruits, vegetables, whole grains, and legumes Protein: poultry, fish, legumes, low-fat dairy foods, and nuts While the risks and benefits of soy foods for cancer survivors have been debated for many years, most studies to date show that moderate consumption of soy foods (up to 3 servings per day) are beneficial in promoting overall health and survival, with the strongest evidence existing for the prevention of lung cancer and reduction of breast cancer recurrence. Practice portion control. Make informed food choices through routine evaluation of food labels. Incorporate physical activity, particularly strength training, to assure optimal lean body mass (SPA-1). Track weight, diet, calories, and physical activity routines (eg, journaling, mobile phone apps). Limit alcohol intake to one drink per day or less for a woman and two drinks or less per day for a man. Avoid smoking! educated on all medications, benefits, side effects and risk, and educated on depression, anxiety, and ADHD, mood d/o and educated on compliance of medications, metabolic and movement d/o education appointment is, continue therapy discussion with patient about course of treatment and patient instructions. education on serotonin syndrome SSRI/SNRI side effects discussed including but not limited to, gastric upset, nausea, vomiting, diarrhea and/or constipation, weight changes, sexual side effects including loss of libido, increased suicidal thoughts/behavio rs in children and young adults, and serotonin syndrome. Second generation antipsychotics (SGAs) have metabolic syndrome issues with weight gain, increase in prolactin, increased waist circumference, increased lipids, and increased glucose. Thus routine monitoring of weight, metabolic labs, etc. is indicated. A general rank ordering of antipsychotics that have the greatest to the least risk of metabolic effects is olanzapine, quetiapine, risperidone, ziprasidone, and aripiprazole. However, weight gain can occur with all of these drugs and considerable variability exists among patients receiving the same drug regarding the risk of metabolic effects. Anti-psychotic agents not only increase the risk of metabolic disorder, they also increase the risk of CVA, akathisia, and movement disorders including EPS or tardive dyskinesia (more common with first generation antipsychotics) and more. Medication Management and Follow-Up - Plan: - Schedule follow-up appointments every 1-3 months to monitor the patient's response to the medication regimen. - Reinforce the importance of avoiding recreational drug use due to potential neurotoxicity and interactions with prescribed medications. 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 websites http_s://www.nim h.nih.gov/health /topics/mental-h ealth-medication s http_s://www.nam i.org/About-Ment al-Illness/Treat ments/Mental-Hea lth-Medications http_s://www.nam i.org/About-Ment al-Illness/Menta q-Qvlwqn-Ckkwkgn ons http_s://[employer]/depres sumeet/the-cogniti cc-cmkhhkgi-hm-d epression#treatm ents http__s://www.[facility].nih.gov/healt h/topics/mental- health-medicatio ns http__s://www.na mi.org/About-Men camelia-Illness/Marissa tments/Mental-He alth-Medications http_s://shreya. h.gov/publicatio ns/drugfacts/can nabis-marijuana http_s://www.[employer]/can qhxya-via-nyuscd mx-nmtehltpy-wzz d/ 08/19/2025 Bipolar 1 disorder (ICD-10 - F31.9) Bipolar Disorder: Care Instructions material was published, Learning About How to Get Help During a Mental Health Crisis material was published, Learning About Movement Disorders From Antipsychotic Medicines material was published, Learning About Mood Disorders material was published, Bipolar Disorder: Care Instructions material was published, Learning About How to Get Help During a Mental Health Crisis material was published, Learning About Movement Disorders From Antipsychotic Medicines material was published, Learning About Mood Disorders material was published, Bipolar Disorder: Care Instructions material was published, Learning About Mood Disorders material was published, Learning About Movement Disorders From Antipsychotic Medicines material was published, Learning About How to Get Help During a Mental Health Crisis material was published 1. Bipolar depression Abilify 10 mg at evening - discuss and educated on [place] for depression, irritable and suicide prevention educated on rx refer to therapy LEXI- plan to see walk in clinic therapy today Increase [place] 450 mg ER AT BEDTIME for Bipolar s/s and help passive thoughts educated on medication. [place] education [place] use reviewed. Risks include risks of toxicity, arrhythmias, cognitive impairment, changes in muscle coordination, weight gain, thyroid and parathyroid changes, polydipsia and polyuria, alopecia, tremor and teratogenicity ( defects). Recommend avoid in females (use contraception consistently). Routine lab monitoring may be required. Patient consented to treatment. Indications: acute erlin (euphoric erlin), bipolar prophylaxis, bipolar depression treatment or augmentation, unipolar depression as augmentation with antidepressants Average dose = I,500 mg/day, target serum level 0.8 [place] is known to reduce risk of suicide. Mechanism of action: inhibits inositol monophosphatase, interfering with 2nd messengers Nuisance Side Effects: sedation, cognitive difficulties, decreased creativity, dry mouth, tremor, increased appetite, weight gain, polydipsia, polyuria, nausea, diarrhea, acne, alopecia Serious Side Effects: Thyroid: hypothyroidism (5%), goiter (3%) Cardiac: decrease in cardiac conduction leading to sick sinus syndrome, blocks SA node Teratogenicity: Ebstein's anomaly 2 in 1,000 Renal: chronic renal insufficiency (after 10-20 years), acute renal failure, polyuria occurs in 50-70% [lithium antagonizes anti-diuretic hormone (ADH)], diabetes insipidus in 10% (treat with amiloride) Drug-drug interactions: increase in lithium: NSAIDs, JOSEPHINE inhibitors, angiotensin II antagonists If you are planning on becoming , notify your health care provider so that he/she can best manage your medications. People living with bipolar disorder who wish to become face important decisions. It is important to discuss the risks and benefits of treatment with your doctor and caregivers. [place] has been associated with an increased risk of Ebstein's anomaly, a heart valve defect. Even though data suggest that the risk of Ebstein's anomaly from first trimester use of lithium is very low, an ultrasound of the heart is recommended at 16 to 20 weeks of gestation. [place] levels should be monitored monthly in early and weekly near delivery. Do not stop taking lithium without first speaking to your health care provider. Discontinuing mood stabilizer medications during has been associated with a significant increase in symptom relapse. If an overdose occurs call your doctor or 911. You may need urgent medical care. You may also contact the poison control center at . A specific treatment to reverse the effects of lithium does not exist, but there are treatments to decrease the effects of the medication. Only a doctor can determine if you require treatment. Avoid drinking alcohol or using illegal drugs while you are taking lithium. They may decrease the benefits (e.g., worsen your condition) and increase adverse effects (e.g., sedation) of the medication. Avoid low sodium diets and dehydration because this can increase the risk of lithium toxicity. Avoid over the counter and prescription pain medications that contain nonsteroidal anti-inflammator y medications (NSAIDS) such as ibuprofen (Motrin, Advil) or naproxen (Aleve, Naprosyn) because these medications can increase the risk of toxicity from lithium. Avoid excessive intake of caffeinated beverages, such as coffee, tea, cola or energy drinks, since these may decrease levels of lithium and decrease effectiveness of the medication. Discontinuing caffeine use may increase lithium levels. Consult your health care provider before reducing or stopping caffeine use. What are the possible side effects of lithium? Common side effects Headache Nausea or vomiting Diarrhea Dizziness or drowsiness Changes in appetite Hand tremors Dry mouth Increased thirst Increased urination Thinning of hair or hair loss Acne-like rash Rare/Serious side effects Signs of lithium toxicity include severe nausea and vomiting, severe hand tremors, confusion, vision changes, and unsteadiness while standing or walking. These symptoms need to be addressed immediately with a medical doctor to ensure your lithium level is not dangerously high. In rare cases, lithium may lead to a reversible condition known as diabetes insipidus. If this occurs you would notice a significant increase in thirst and how much fluid you drink and how much you urinate. Talk to your doctor if you notice you are urinating more frequently than usual. Are There Any Risks For Taking [place] For Long Periods Of Time? Hypothyroidism (low levels of thyroid hormone) may occur with long-term lithium use. Rare kidney problems have been associated with long-term use of lithium. The risk increases with high levels of lithium. Your doctor will monitor your kidney function at routine check-ups to ensure this does not occur. Summary of Black Box Warnings [place] Toxicity [place] toxicity is closely related to lithium blood levels and can occur at doses close to therapeutic levels; lithium levels should be monitored closely when starting the medication or if individuals experience side effects of the medication. 2. Anxiety Therapy- see walk in clinic [place] discuss coping skills Buspar 10 mg three times a day Vistaril 25 mg up to 3x day PRN for anxiety and panic Propranolol 10 mg daily prn for anxiety and panic - helping anxiety educated on all rx and monitor B/P 3. Nicotine use- vaping Do not smoke. Nicotine and other chemicals in cigarettes and cigars can cause lung damage. Ask your healthcare provider for information if you currently smoke and need help to quit. E-cigarettes or smokeless tobacco still contain nicotine. Talk to your healthcare provider before you use these products. education on decrease to stopping nicotine products and stop smoking hotline given Quit - Yes [place] Tobacco Quitline Call a Smoking Quitline The National Cancer [place]'s Smoking Quitline, (5-860-62K-QUIT) Smokefree.gov, which connects you with your State's Quitline, (5-849-BLLIHYA) Veterans Smoking Quitline, (3-720-MWSKZYE) 4. cannabis Cannabis Use Education Recommend decrease/stop cannabis use as it can negatively impact mood, motivation, anxiety, sleep, focus/concentrat ion/memory (vigilance, elasticity, processing and attention); can also contribute to development of psychosis. Recommend decrease/stop cannabis use as it may be negatively impacting mood, motivation, anxiety, sleep, focus; can also contribute to development of psychosis Cannabis/marijua na information: http__s://shreya.n ih.gov/publicati ons/drugfacts/ca nnabis-marijuana http__s://www.[employer]/ca tpwhxr-joz-wnezn flb-qnjfcdezh-qe hd/ 5. Passive suicidal thoughts no plans or intent denies SI/HI no active thoughts NO thoughts harm to self or others discuss go to nearest ER if have active thoughts, increase passive thoughts, plans or intent saftey plan discuss [phone] discuss support system [place] added and educated Evidence suggests an active lifestyle and achieving and maintaining an ideal body weight (20-25 BMI) is optimal for health. Experts recommend at least 30 minutes of moderate to vigorous activity per day as tolerated, 5 days a week Eat healthy, including plenty of fresh fruits and vegetables daily. Strive to have 2/3 cup of your plate to be vegetables, fruits, whole grains and beans, while 1/3 or less should be an animal product. Choose fish and chicken and limit red meat and processed meats. Assess dietary pattern for daily intake of fruits, vegetables, and whole grains, as well as red and processed meats, alcohol, and processed foods or beverages with added fats and/or sugars. Assess timing of meals and snacking habits, portion size, frequency of eating out, and use of added fats and/or sugars to foods or beverages. All survivors should be encouraged to: Follow a predominantly nutrient-rich plant-based diet, including vegetables, fruit, and whole grains. Make informed choices about food to ensure variety and adequate nutrient intake. Limit consumption of red meat such as beef, pork, or valdez to no more than 18 ounces (cooked) per week. Eat processed meats such as ham, hot dogs, deli cuts, weeks, and sausage sparingly if at all. Limit consumption of fast foods and other processed foods that are high in fat, starches, or sugars such as chips, cookies, candy bars, desserts, processed baked goods, sugary cereals, and fried foods. Limit refined sugars to <6 tsp (25 g) for a 2000-calorie daily diet and <9 tsp (38 g) for a 3000-calorie daily diet. One medium cookie has about 2 tsp of sugar; a 12-oz can of a soft drink has about 10 tsp. Track calorie intake. Self-monitoring of food and beverage intake has been shown to be an effective strategy for weight management. Prolonged periods of fasting may impair adequate caloric and nutrient intake. Drink alcohol sparingly if at all. Lower levels of alcohol consumption are associated with a lower risk of cancer. For patients desiring further recommendations for dietary guidelines: Consider referral to a registered dietitian or brush polisher. The USDA approximate food plate volumes (http_s://www.Bring[employer].gov) are: Vegetables and fruits should comprise half the volume of food on the plate Vegetables: 30% of plate; fruits 20% of plate Whole grains: 30% of plate Protein: 20% of plate Recommended sources of dietary components: Fat: plant sources such as olive or canola oil, avocados, seeds and nuts, and fatty fish Carbohydrates: fruits, vegetables, whole grains, and legumes Protein: poultry, fish, legumes, low-fat dairy foods, and nuts While the risks and benefits of soy foods for cancer survivors have been debated for many years, most studies to date show that moderate consumption of soy foods (up to 3 servings per day) are beneficial in promoting overall health and survival, with the strongest evidence existing for the prevention of lung cancer and reduction of breast cancer recurrence. Practice portion control. Make informed food choices through routine evaluation of food labels. Incorporate physical activity, particularly strength training, to assure optimal lean body mass (SPA-1). Track weight, diet, calories, and physical activity routines (eg, journaling, mobile phone apps). Limit alcohol intake to one drink per day or less for a woman and two drinks or less per day for a man. Avoid smoking! educated on all medications, benefits, side effects and risk, and educated on depression, anxiety, and ADHD, mood d/o and educated on compliance of medications, metabolic and movement d/o education appointment is, continue therapy discussion with patient about course of treatment and patient instructions. education on serotonin syndrome SSRI/SNRI side effects discussed including but not limited to, gastric upset, nausea, vomiting, diarrhea and/or constipation, weight changes, sexual side effects including loss of libido, increased suicidal thoughts/behavio rs in children and young adults, and serotonin syndrome. Second generation antipsychotics (SGAs) have metabolic syndrome issues with weight gain, increase in prolactin, increased waist circumference, increased lipids, and increased glucose. Thus routine monitoring of weight, metabolic labs, etc. is indicated. A general rank ordering of antipsychotics that have the greatest to the least risk of metabolic effects is olanzapine, quetiapine, risperidone, ziprasidone, and aripiprazole. However, weight gain can occur with all of these drugs and considerable variability exists among patients receiving the same drug regarding the risk of metabolic effects. Anti-psychotic agents not only increase the risk of metabolic disorder, they also increase the risk of CVA, akathisia, and movement disorders including EPS or tardive dyskinesia (more common with first generation antipsychotics) and more. Medication Management and Follow-Up - Plan: - Schedule follow-up appointments every 1-3 months to monitor the patient's response to the medication regimen. - Reinforce the importance of avoiding recreational drug use due to potential neurotoxicity and interactions with prescribed medications. 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 websites http_s://www.[facility].nih.gov/health /topics/mental-h ealth-medication s http_s://www.nam i.[employer]/About-Ment al-Illness/Treat ments/Mental-Hea lth-Medications http_s://www.nam i.org/About-Ment al-Illness/Menta f-Ctcqfq-Psuocot ons http_s://[employer]/depres sumeet/the-cogniti ol-hdnlbtry-so-d epression#treatm ents http__s://www.ni .nih.gov/healt h/topics/mental- health-medicatio ns http__s://www.na mi.org/About-Men camelia-Illness/Marissa tments/Mental-He alth-Medications http_s://shreya. h.gov/publicatio ns/drugfacts/can nabis-marijuana http_s://www.[employer]/can qpuii-zni-bhypxl wn-coamzayqd-mcw d/ 08/19/2025 Nicotine use (ICD-10 - Z72.0) Deciding About Using Medicines To Quit Smoking material was published, Quitting Tobacco: Care Instructions material was published, Stopping Smokeless Tobacco Use: Care Instructions material was published, Learning About Benefits of Quitting Smoking material was published, Stopping Smokeless Tobacco Use: Care Instructions material was published, Learning About Benefits of Quitting Smoking material was published, Quitting Tobacco: Care Instructions material was published, Deciding About Using Medicines To Quit Smoking material was published, Quitting Tobacco: Care Instructions material was published, Learning About Benefits of Quitting Smoking material was published, Deciding About Using Medicines To Quit Smoking material was published 1. Bipolar depression Abilify 10 mg at evening - discuss and educated on [place] for depression, irritable and suicide prevention educated on rx refer to therapy LEXI- plan to see walk in clinic therapy today Increase [place] 450 mg ER AT BEDTIME for Bipolar s/s and help passive thoughts educated on medication. [place] education [place] use reviewed. Risks include risks of toxicity, arrhythmias, cognitive impairment, changes in muscle coordination, weight gain, thyroid and parathyroid changes, polydipsia and polyuria, alopecia, tremor and teratogenicity ( defects). Recommend avoid in females (use contraception consistently). Routine lab monitoring may be required. Patient consented to treatment. Indications: acute erlin (euphoric erlin), bipolar prophylaxis, bipolar depression treatment or augmentation, unipolar depression as augmentation with antidepressants Average dose = I,500 mg/day, target serum level 0.8 [place] is known to reduce risk of suicide. Mechanism of action: inhibits inositol monophosphatase, interfering with 2nd messengers Nuisance Side Effects: sedation, cognitive difficulties, decreased creativity, dry mouth, tremor, increased appetite, weight gain, polydipsia, polyuria, nausea, diarrhea, acne, alopecia Serious Side Effects: Thyroid: hypothyroidism (5%), goiter (3%) Cardiac: decrease in cardiac conduction leading to sick sinus syndrome, blocks SA node Teratogenicity: Ebstein's anomaly 2 in 1,000 Renal: chronic renal insufficiency (after 10-20 years), acute renal failure, polyuria occurs in 50-70% [lithium antagonizes anti-diuretic hormone (ADH)], diabetes insipidus in 10% (treat with amiloride) Drug-drug interactions: increase in lithium: NSAIDs, JOSEPHINE inhibitors, angiotensin II antagonists If you are planning on becoming , notify your health care provider so that he/she can best manage your medications. People living with bipolar disorder who wish to become face important decisions. It is important to discuss the risks and benefits of treatment with your doctor and caregivers. [place] has been associated with an increased risk of Ebstein's anomaly, a heart valve defect. Even though data suggest that the risk of Ebstein's anomaly from first trimester use of lithium is very low, an ultrasound of the heart is recommended at 16 to 20 weeks of gestation. [place] levels should be monitored monthly in early and weekly near delivery. Do not stop taking lithium without first speaking to your health care provider. Discontinuing mood stabilizer medications during has been associated with a significant increase in symptom relapse. If an overdose occurs call your doctor or 911. You may need urgent medical care. You may also contact the poison control center at . A specific treatment to reverse the effects of lithium does not exist, but there are treatments to decrease the effects of the medication. Only a doctor can determine if you require treatment. Avoid drinking alcohol or using illegal drugs while you are taking lithium. They may decrease the benefits (e.g., worsen your condition) and increase adverse effects (e.g., sedation) of the medication. Avoid low sodium diets and dehydration because this can increase the risk of lithium toxicity. Avoid over the counter and prescription pain medications that contain nonsteroidal anti-inflammator y medications (NSAIDS) such as ibuprofen (Motrin, Advil) or naproxen (Aleve, Naprosyn) because these medications can increase the risk of toxicity from lithium. Avoid excessive intake of caffeinated beverages, such as coffee, tea, cola or energy drinks, since these may decrease levels of lithium and decrease effectiveness of the medication. Discontinuing caffeine use may increase lithium levels. Consult your health care provider before reducing or stopping caffeine use. What are the possible side effects of lithium? Common side effects Headache Nausea or vomiting Diarrhea Dizziness or drowsiness Changes in appetite Hand tremors Dry mouth Increased thirst Increased urination Thinning of hair or hair loss Acne-like rash Rare/Serious side effects Signs of lithium toxicity include severe nausea and vomiting, severe hand tremors, confusion, vision changes, and unsteadiness while standing or walking. These symptoms need to be addressed immediately with a medical doctor to ensure your lithium level is not dangerously high. In rare cases, lithium may lead to a reversible condition known as diabetes insipidus. If this occurs you would notice a significant increase in thirst and how much fluid you drink and how much you urinate. Talk to your doctor if you notice you are urinating more frequently than usual. Are There Any Risks For Taking [place] For Long Periods Of Time? Hypothyroidism (low levels of thyroid hormone) may occur with long-term lithium use. Rare kidney problems have been associated with long-term use of lithium. The risk increases with high levels of lithium. Your doctor will monitor your kidney function at routine check-ups to ensure this does not occur. Summary of Black Box Warnings [place] Toxicity [place] toxicity is closely related to lithium blood levels and can occur at doses close to therapeutic levels; lithium levels should be monitored closely when starting the medication or if individuals experience side effects of the medication. 2. Anxiety Therapy- see walk in clinic [place] discuss coping skills Buspar 10 mg three times a day Vistaril 25 mg up to 3x day PRN for anxiety and panic Propranolol 10 mg daily prn for anxiety and panic - helping anxiety educated on all rx and monitor B/P 3. Nicotine use- vaping Do not smoke. Nicotine and other chemicals in cigarettes and cigars can cause lung damage. Ask your healthcare provider for information if you currently smoke and need help to quit. E-cigarettes or smokeless tobacco still contain nicotine. Talk to your healthcare provider before you use these products. education on decrease to stopping nicotine products and stop smoking hotline given Quit - Yes [place] Tobacco Quitline Call a Smoking Quitline The [employer] [place]'s Smoking Quitline, (3-565-57U-QUIT) Smokefree.gov, which connects you with your [facility]'s Quitline, (5-645-UBUYYDA) Veterans Smoking Quitline, (3-708-KTTQVNJ) 4. cannabis Cannabis Use Education Recommend decrease/stop cannabis use as it can negatively impact mood, motivation, anxiety, sleep, focus/concentrat ion/memory (vigilance, elasticity, processing and attention); can also contribute to development of psychosis. Recommend decrease/stop cannabis use as it may be negatively impacting mood, motivation, anxiety, sleep, focus; can also contribute to development of psychosis Cannabis/marijua na information: http__s://shreya.n ih.gov/publicati ons/drugfacts/ca nnabis-marijuana http__s://www.Nextance ditEpiSensor.com/ca bflahm-tlc-kbygt xui-pdvhkkakn-nr hd/ 5. Passive suicidal thoughts no plans or intent denies SI/HI no active thoughts NO thoughts harm to self or others discuss go to nearest ER if have active thoughts, increase passive thoughts, plans or intent saftey plan discuss [phone] discuss support system [place] added and educated Evidence suggests an active lifestyle and achieving and maintaining an ideal body weight (20-25 BMI) is optimal for health. Experts recommend at least 30 minutes of moderate to vigorous activity per day as tolerated, 5 days a week Eat healthy, including plenty of fresh fruits and vegetables daily. Strive to have 2/3 cup of your plate to be vegetables, fruits, whole grains and beans, while 1/3 or less should be an animal product. Choose fish and chicken and limit red meat and processed meats. Assess dietary pattern for daily intake of fruits, vegetables, and whole grains, as well as red and processed meats, alcohol, and processed foods or beverages with added fats and/or sugars. Assess timing of meals and snacking habits, portion size, frequency of eating out, and use of added fats and/or sugars to foods or beverages. All survivors should be encouraged to: Follow a predominantly nutrient-rich plant-based diet, including vegetables, fruit, and whole grains. Make informed choices about food to ensure variety and adequate nutrient intake. Limit consumption of red meat such as beef, pork, or valdez to no more than 18 ounces (cooked) per week. Eat processed meats such as ham, hot dogs, deli cuts, weeks, and sausage sparingly if at all. Limit consumption of fast foods and other processed foods that are high in fat, starches, or sugars such as chips, cookies, candy bars, desserts, processed baked goods, sugary cereals, and fried foods. Limit refined sugars to <6 tsp (25 g) for a 2000-calorie daily diet and <9 tsp (38 g) for a 3000-calorie daily diet. One medium cookie has about 2 tsp of sugar; a 12-oz can of a soft drink has about 10 tsp. Track calorie intake. Self-monitoring of food and beverage intake has been shown to be an effective strategy for weight management. Prolonged periods of fasting may impair adequate caloric and nutrient intake. Drink alcohol sparingly if at all. Lower levels of alcohol consumption are associated with a lower risk of cancer. For patients desiring further recommendations for dietary guidelines: Consider referral to a registered dietitian or brush polisher. The USDA approximate food plate volumes (http_s://www.Bringrs plate.gov) are: Vegetables and fruits should comprise half the volume of food on the plate Vegetables: 30% of plate; fruits 20% of plate Whole grains: 30% of plate Protein: 20% of plate Recommended sources of dietary components: Fat: plant sources such as olive or canola oil, avocados, seeds and nuts, and fatty fish Carbohydrates: fruits, vegetables, whole grains, and legumes Protein: poultry, fish, legumes, low-fat dairy foods, and nuts While the risks and benefits of soy foods for cancer survivors have been debated for many years, most studies to date show that moderate consumption of soy foods (up to 3 servings per day) are beneficial in promoting overall health and survival, with the strongest evidence existing for the prevention of lung cancer and reduction of breast cancer recurrence. Practice portion control. Make informed food choices through routine evaluation of food labels. Incorporate physical activity, particularly strength training, to assure optimal lean body mass (SPA-1). Track weight, diet, calories, and physical activity routines (eg, journaling, mobile phone apps). Limit alcohol intake to one drink per day or less for a woman and two drinks or less per day for a man. Avoid smoking! educated on all medications, benefits, side effects and risk, and educated on depression, anxiety, and ADHD, mood d/o and educated on compliance of medications, metabolic and movement d/o education appointment is, continue therapy discussion with patient about course of treatment and patient instructions. education on serotonin syndrome SSRI/SNRI side effects discussed including but not limited to, gastric upset, nausea, vomiting, diarrhea and/or constipation, weight changes, sexual side effects including loss of libido, increased suicidal thoughts/behavio rs in children and young adults, and serotonin syndrome. Second generation antipsychotics (SGAs) have metabolic syndrome issues with weight gain, increase in prolactin, increased waist circumference, increased lipids, and increased glucose. Thus routine monitoring of weight, metabolic labs, etc. is indicated. A general rank ordering of antipsychotics that have the greatest to the least risk of metabolic effects is olanzapine, quetiapine, risperidone, ziprasidone, and aripiprazole. However, weight gain can occur with all of these drugs and considerable variability exists among patients receiving the same drug regarding the risk of metabolic effects. Anti-psychotic agents not only increase the risk of metabolic disorder, they also increase the risk of CVA, akathisia, and movement disorders including EPS or tardive dyskinesia (more common with first generation antipsychotics) and more. Medication Management and Follow-Up - Plan: - Schedule follow-up appointments every 1-3 months to monitor the patient's response to the medication regimen. - Reinforce the importance of avoiding recreational drug use due to potential neurotoxicity and interactions with prescribed medications. 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 websites http_s://www.nim h.nih.gov/health /topics/mental-h ealth-medication s http_s://www.nam i.JamHub/About-Ment al-Illness/Treat ments/Mental-Hea lth-Medications http_s://www.nam i.org/About-Ment al-Illness/Menta b-Vnvjww-Sbahdhv ons http_s://psychSMATOOS/depres sumeet/the-cogniti rh-kgebobgh-hb-d epression#treatm ents http__s://www.ni .nih.gov/healt h/topics/mental- health-medicatio ns http__s://www.na mi.org/About-Men camelia-Illness/Marissa tments/Mental-He alth-Medications http_s://shreya.ni h.gov/publicatio ns/drugfacts/can nabis-marijuana http_s://www.[employer]/can gtqso-bsz-soyjic gi-yxcazmhqb-gty d/ 08/20/2025 BEKA (generalized anxiety disorder) (ICD-10 - F41.1) Anxiety Assessment: Patient reports ongoing anxiety, particularly related to driving and being alone. She experiences physical symptoms of anxiety including shaking and heat sensations, which have improved with medication. The patient uses coping strategies such as deep breathing, drinking water, and positive self-talk while driving. She expresses difficulty being alone with her thoughts, describing it as 300,000 people in my head speaking at once. 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 There are indications of agoraphobia, as the patient states she doesn't like going out in public alone. Plan: - Implement gradual exposure therapy to silence, starting with 30-second intervals - Utilize grounding techniques during anxiety-provokin g situations (e.g., using Play-Rosie, cold water, or sour candy) - Practice deep breathing exercises - Continue current anxiety medication regimen - Encourage use of 5 senses self-soothing techniques in anxiety-inducing situations (e.g., waiting at restaurants) Relationship Issues and Fear of Being Alone Assessment: Patient recently ended a 10-month relationship and quickly entered a new relationship, followed by infidelity with the previous partner. She expresses a fear of being alone and a constant need for companionship. This pattern suggests potential attachment issues and difficulty with emotional regulation when not in a relationship. Plan: - Explore underlying causes of fear of being alone in future sessions - Encourage scheduling time with friends and family for social support - Recommend having conversation with current boyfriend in a public place for safety as he made threats that she is unsure were serious or joking (he would slash her tires, he would kill her) - Advise patient to inform a support person before and after conversation with boyfriend for safety concerns. Concentration Difficulties Assessment: Patient reports lifelong struggles with concentration and attention, which are currently impacting her ability to focus during important meetings and may affect her upcoming schooling. She mentions the possibility of ADHD, as suggested by another healthcare provider (Stella). However, there are concerns about medication management due to her bipolar disorder diagnosis and current medication regimen. 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 She has concerns about her ability to focus and retain information, based on past experiences during the COVID-19 pandemic where she struggled with online learning and received a poor grade in anatomy. Plan: - Continue working on anxiety management techniques - Practice grounding exercises to use during classes - Encourage patient to communicate with school about any necessary accommodations - Monitor school-related anxiety as the start date approaches 08/20/2025 Bipolar 1 disorder (ICD-10 - F31.9) Anxiety Assessment: Patient reports ongoing anxiety, particularly related to driving and being alone. She experiences physical symptoms of anxiety including shaking and heat sensations, which have improved with medication. The patient uses coping strategies such as deep breathing, drinking water, and positive self-talk while driving. She expresses difficulty being alone with her thoughts, describing it as 300,000 people in my head speaking at once. The patient also reports anxiety in social situations, including difficulty focusing during an admission meeting for H[employer]ry therapy school. There are indications of agoraphobia, as the patient states she doesn't like going out in public alone. Plan: - Implement gradual exposure therapy to silence, starting with 30-second intervals - Utilize grounding techniques during anxiety-provokin g situations (e.g., using Play-Rosie, cold water, or sour candy) - Practice deep breathing exercises - Continue current anxiety medication regimen - Encourage use of 5 senses self-soothing techniques in anxiety-inducing situations (e.g., waiting at restaurants) Relationship Issues and Fear of Being Alone Assessment: Patient recently ended a 10-month relationship and quickly entered a new relationship, followed by infidelity with the previous partner. She expresses a fear of being alone and a constant need for companionship. This pattern suggests potential attachment issues and difficulty with emotional regulation when not in a relationship. Plan: - Explore underlying causes of fear of being alone in future sessions - Encourage scheduling time with friends and family for social support - Recommend having conversation with current boyfriend in a public place for safety as he made threats that she is unsure were serious or joking (he would slash her tires, he would kill her) - Advise patient to inform a support person before and after conversation with boyfriend for safety concerns. Concentration Difficulties Assessment: Patient reports lifelong struggles with concentration and attention, which are currently impacting her ability to focus during important meetings and may affect her upcoming schooling. She mentions the possibility of ADHD, as suggested by another healthcare provider (Stella). However, there are concerns about medication management due to her bipolar disorder diagnosis and current medication regimen. 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 She has concerns about her ability to focus and retain information, based on past experiences during the COVID-19 pandemic where she struggled with online learning and received a poor grade in anatomy. Plan: - Continue working on anxiety management techniques - Practice grounding exercises to use during classes - Encourage patient to communicate with school about any necessary accommodations - Monitor school-related anxiety as the start date approaches 09/17/2025 BEKA (generalized anxiety disorder) (ICD-10 - F41.1) Relationship difficulties and guilt Assessment: Patient reports significant guilt related to ongoing relationship conflicts, describing herself as having cheated both physically and emotionally at the beginning of her current relationship. She expresses ambivalence about her current boyfriend who is moving in tomorrow, citing financial necessity ($400 rent reduction) and convenience (he stays every night) as primary motivations. Patient acknowledges she shouldn't be in a relationship right now and reports feeling disgusted by her current partner at times while maintaining emotional connection to her ex-partner. She has taken steps to distance herself from the ex by cutting off contact and blocking him. Patient reports her boyfriend has made threatening statements including I'll kill both of you when asked about potential infidelity, which he states he means seriously. She has established safety measures including sharing her location with six people and maintaining awareness among her support system about the threatening comments. She states that she is not willing to break up with him at this time as he checks all the boxes outside of the threatening statements. Plan: - Continue distancing from ex-partner by maintaining no contact - Practice opposite action techniques when experiencing thoughts about ex-partner by acknowledging thoughts without acting on them and reminding herself they are different people - Implement self-soothing techniques using five senses when craving physical affection that is not reciprocated, including hugging herself, wrapping in blankets, focusing on scents, and squeezing pillows - Communicate needs with current boyfriend while respecting his boundaries, particularly around physical affection and sleep preferences - Maintain established safety measures including location sharing with six people and keeping support system informed of threatening comments - Continue working on emotional presence in current relationship while allowing time for feelings to develop naturally - Call 911 if boyfriend's behavior becomes aggressive or threatening in any way. Medication non-adherence Assessment: Patient reports inconsistent adherence to mood stabilizer medication, describing forgetting doses despite setting alarms. She acknowledges feeling better and safer when taking medication consistently, noting that without it she feels like anything can piss me off today and I can snap at any minute. Patient has attempted alarm reminders but gets distracted and forgets to take medication after dismissing alarms. Plan: - Add snooze function to medication alarms to provide additional reminders - Practice self-compassion when missing doses rather than self-criticism Restlessness and sleep disturbances Assessment: Patient reports experiencing restlessness, particularly at night and when resting, describing inability to stop moving her legs and needing to be constantly active. 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 Plan: - Follow up with DARYL Murray today about concerns with restlessness Depression and low motivation Assessment: Patient reports bedrotting behavior, spending excessive time in bed on her phone with her boyfriend, both engaging in passive screen time together. She describes feeling addicted to her phone, experiencing migraines from excessive screen time, and reports running out of outdoor activities due to seasonal changes. Patient expresses concern about wasting time and desires to be more present and engaged in meaningful activities. Plan: - Implement ashish limitations starting with one hour daily restriction on most problematic applications - Establish winter self-care plan to prevent deeper depression during seasonal changes - Utilize dining table as study space by clearing storage items - Consider using library study rooms or school facilities for private study environments - Engage in screen-free activities including guitar playing, fish care, plant care, reading for pleasure, and writing for mental health documentation - Practice savoring techniques using five senses to enhance present-moment awareness - Create progress tracking system to document mental health improvements and self-care activities - Express gratitude as method to increase presence and mindfulness 09/17/2025 Bipolar 1 disorder (ICD-10 - F31.9) Relationship difficulties and guilt Assessment: Patient reports significant guilt related to ongoing relationship conflicts, describing herself as having cheated both physically and emotionally at the beginning of her current relationship. She expresses ambivalence about her current boyfriend who is moving in tomorrow, citing financial necessity ($400 rent reduction) and convenience (he stays every night) as primary motivations. Patient acknowledges she shouldn't be in a relationship right now and reports feeling disgusted by her current partner at times while maintaining emotional connection to her ex-partner. She has taken steps to distance herself from the ex by cutting off contact and blocking him. Patient reports her boyfriend has made threatening statements including I'll kill both of you when asked about potential infidelity, which he states he means seriously. She has established safety measures including sharing her location with six people and maintaining awareness among her support system about the threatening comments. She states that she is not willing to break up with him at this time as he checks all the boxes outside of the threatening statements. Plan: - Continue distancing from ex-partner by maintaining no contact - Practice opposite action techniques when experiencing thoughts about ex-partner by acknowledging thoughts without acting on them and reminding herself they are different people - Implement self-soothing techniques using five senses when craving physical affection that is not reciprocated, including hugging herself, wrapping in blankets, focusing on scents, and squeezing pillows - Communicate needs with current boyfriend while respecting his boundaries, particularly around physical affection and sleep preferences - Maintain established safety measures including location sharing with six people and keeping support system informed of threatening comments - Continue working on emotional presence in current relationship while allowing time for feelings to develop naturally - Call 911 if boyfriend's behavior becomes aggressive or threatening in any way. Medication non-adherence Assessment: Patient reports inconsistent adherence to mood stabilizer medication, describing forgetting doses despite setting alarms. She acknowledges feeling better and safer when taking medication consistently, noting that without it she feels like anything can piss me off today and I can snap at any minute. Patient has attempted alarm reminders but gets distracted and forgets to take medication after dismissing alarms. Plan: - Add snooze function to medication alarms to provide additional reminders - Practice self-compassion when missing doses rather than self-criticism Restlessness and sleep disturbances Assessment: Patient reports experiencing restlessness, particularly at night and when resting, describing inability to stop moving her legs and needing to be constantly active. 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 Plan: - Follow up with DARYL Murray today about concerns with restlessness Depression and low motivation Assessment: Patient reports bedrotting behavior, spending excessive time in bed on her phone with her boyfriend, both engaging in passive screen time together. She describes feeling addicted to her phone, experiencing migraines from excessive screen time, and reports running out of outdoor activities due to seasonal changes. Patient expresses concern about wasting time and desires to be more present and engaged in meaningful activities. Plan: - Implement ashish limitations starting with one hour daily restriction on most problematic applications - Establish winter self-care plan to prevent deeper depression during seasonal changes - Utilize dining table as study space by clearing storage items - Consider using library study rooms or school facilities for private study environments - Engage in screen-free activities including guitar playing, fish care, plant care, reading for pleasure, and writing for mental health documentation - Practice savoring techniques using five senses to enhance present-moment awareness - Create progress tracking system to document mental health improvements and self-care activities - Express gratitude as method to increase presence and mindfulness 09/17/2025 BEKA (generalized anxiety disorder) (ICD-10 - F41.1) Generalized Anxiety Disorder: Care Instructions material was published, Learning About Generalized Anxiety Disorder material was published, Learning About Anxiety Disorders material was published, Learning About Generalized Anxiety Disorder material was published, Generalized Anxiety Disorder: Care Instructions material was published, Learning About Anxiety Disorders material was published, Learning About Generalized Anxiety Disorder material was published, Generalized Anxiety Disorder: Care Instructions material was published, Life After Combat: Coping with an Anxiety Disorder material was published, Learning About Anxiety Disorders material was published, Managing a Health Condition and Your Anxiety About It material was published 1. Bipolar depression - improved Abilify 10 mg at evening - discuss and educated on [place] for depression, irritable and suicide prevention educated on rx refer to therapy [facility]I- plan to see walk in clinic therapy today [place] 450 mg ER AT BEDTIME for Bipolar s/s and help passive thoughts- improved educated on medication. [place] education [place] use reviewed. Risks include risks of toxicity, arrhythmias, cognitive impairment, changes in muscle coordination, weight gain, thyroid and parathyroid changes, polydipsia and polyuria, alopecia, tremor and teratogenicity ( defects). Recommend avoid in females (use contraception consistently). Routine lab monitoring may be required. Patient consented to treatment. Indications: acute erlin (euphoric erlin), bipolar prophylaxis, bipolar depression treatment or augmentation, unipolar depression as augmentation with antidepressants Average dose = I,500 mg/day, target serum level 0.8 [place] is known to reduce risk of suicide. Mechanism of action: inhibits inositol monophosphatase, interfering with 2nd messengers Nuisance Side Effects: sedation, cognitive difficulties, decreased creativity, dry mouth, tremor, increased appetite, weight gain, polydipsia, polyuria, nausea, diarrhea, acne, alopecia Serious Side Effects: Thyroid: hypothyroidism (5%), goiter (3%) Cardiac: decrease in cardiac conduction leading to sick sinus syndrome, blocks SA node Teratogenicity: Ebstein's anomaly 2 in 1,000 Renal: chronic renal insufficiency (after 10-20 years), acute renal failure, polyuria occurs in 50-70% [lithium antagonizes anti-diuretic hormone (ADH)], diabetes insipidus in 10% (treat with amiloride) Drug-drug interactions: increase in lithium: NSAIDs, JOSEPHINE inhibitors, angiotensin II antagonists If you are planning on becoming , notify your health care provider so that he/she can best manage your medications. People living with bipolar disorder who wish to become face important decisions. It is important to discuss the risks and benefits of treatment with your doctor and caregivers. [place] has been associated with an increased risk of Ebstein's anomaly, a heart valve defect. Even though data suggest that the risk of Ebstein's anomaly from first trimester use of lithium is very low, an ultrasound of the heart is recommended at 16 to 20 weeks of gestation. [place] levels should be monitored monthly in early and weekly near delivery. Do not stop taking lithium without first speaking to your health care provider. Discontinuing mood stabilizer medications during has been associated with a significant increase in symptom relapse. If an overdose occurs call your doctor or 911. You may need urgent medical care. You may also contact the poison control center at . A specific treatment to reverse the effects of lithium does not exist, but there are treatments to decrease the effects of the medication. Only a doctor can determine if you require treatment. Avoid drinking alcohol or using illegal drugs while you are taking lithium. They may decrease the benefits (e.g., worsen your condition) and increase adverse effects (e.g., sedation) of the medication. Avoid low sodium diets and dehydration because this can increase the risk of lithium toxicity. Avoid over the counter and prescription pain medications that contain nonsteroidal anti-inflammator y medications (NSAIDS) such as ibuprofen (Motrin, Advil) or naproxen (Aleve, Naprosyn) because these medications can increase the risk of toxicity from lithium. Avoid excessive intake of caffeinated beverages, such as coffee, tea, cola or energy drinks, since these may decrease levels of lithium and decrease effectiveness of the medication. Discontinuing caffeine use may increase lithium levels. Consult your health care provider before reducing or stopping caffeine use. What are the possible side effects of lithium? Common side effects Headache Nausea or vomiting Diarrhea Dizziness or drowsiness Changes in appetite Hand tremors Dry mouth Increased thirst Increased urination Thinning of hair or hair loss Acne-like rash Rare/Serious side effects Signs of lithium toxicity include severe nausea and vomiting, severe hand tremors, confusion, vision changes, and unsteadiness while standing or walking. These symptoms need to be addressed immediately with a medical doctor to ensure your lithium level is not dangerously high. In rare cases, lithium may lead to a reversible condition known as diabetes insipidus. If this occurs you would notice a significant increase in thirst and how much fluid you drink and how much you urinate. Talk to your doctor if you notice you are urinating more frequently than usual. Are There Any Risks For Taking [place] For Long Periods Of Time? Hypothyroidism (low levels of thyroid hormone) may occur with long-term lithium use. Rare kidney problems have been associated with long-term use of lithium. The risk increases with high levels of lithium. Your doctor will monitor your kidney function at routine check-ups to ensure this does not occur. Summary of Black Box Warnings [place] Toxicity [place] toxicity is closely related to lithium blood levels and can occur at doses close to therapeutic levels; lithium levels should be monitored closely when starting the medication or if individuals experience side effects of the medication. 2. Anxiety Therapy- see walk in clinic [facility] discuss coping skills Buspar 10 mg three times a day Vistaril 25 mg up to 3x day PRN for anxiety and panic - educated patient to take rx three times a day to help anxiety and panic Propranolol 10 mg daily prn for anxiety and panic - helping anxiety educated on all rx and monitor B/P 3. Nicotine use- vaping Do not smoke. Nicotine and other chemicals in cigarettes and cigars can cause lung damage. Ask your healthcare provider for information if you currently smoke and need help to quit. E-cigarettes or smokeless tobacco still contain nicotine. Talk to your healthcare provider before you use these products. education on decrease to stopping nicotine products and stop smoking hotline given -Quit - Yes [place] Tobacco Quitline Call a Smoking Quitline The [employer] [place]'s Smoking Quitline, (7-266-90S-QUIT) Smokefree.gov, which connects you with your State's Quitline, (5-900-MYIAMDJ) Veterans Smoking Quitline, (2-432-REKBQUJ) 4. cannabis Cannabis Use Education Recommend decrease/stop cannabis use as it can negatively impact mood, motivation, anxiety, sleep, focus/concentrat ion/memory (vigilance, elasticity, processing and attention); can also contribute to development of psychosis. Recommend decrease/stop cannabis use as it may be negatively impacting mood, motivation, anxiety, sleep, focus; can also contribute to development of psychosis Cannabis/marijua na information: http__s://shreya.n ih.gov/publicati ons/drugfacts/ca nnabis-marijuana http__s://[employer]/ca iwpype-taw-votzd gbe-bwckgqopu-zk hd/ 5. Passive suicidal thoughts - improved no passive thoughts no plans or intent denies SI/HI no active thoughts NO thoughts harm to self or others discuss go to nearest ER if have active thoughts, increase passive thoughts, plans or intent saftey plan discuss [phone]/911 discuss support system [place] added and educated 6. ADHD symptoms Creyos scheduled discuss non stimulates related to cannabis use Evidence suggests an active lifestyle and achieving and maintaining an ideal body weight (20-25 BMI) is optimal for health. Experts recommend at least 30 minutes of moderate to vigorous activity per day as tolerated, 5 days a week Eat healthy, including plenty of fresh fruits and vegetables daily. Strive to have 2/3 cup of your plate to be vegetables, fruits, whole grains and beans, while 1/3 or less should be an animal product. Choose fish and chicken and limit red meat and processed meats. Assess dietary pattern for daily intake of fruits, vegetables, and whole grains, as well as red and processed meats, alcohol, and processed foods or beverages with added fats and/or sugars. Assess timing of meals and snacking habits, portion size, frequency of eating out, and use of added fats and/or sugars to foods or beverages. All survivors should be encouraged to: Follow a predominantly nutrient-rich plant-based diet, including vegetables, fruit, and whole grains. Make informed choices about food to ensure variety and adequate nutrient intake. Limit consumption of red meat such as beef, pork, or valdez to no more than 18 ounces (cooked) per week. Eat processed meats such as ham, hot dogs, deli cuts, weeks, and sausage sparingly if at all. Limit consumption of fast foods and other processed foods that are high in fat, starches, or sugars such as chips, cookies, candy bars, desserts, processed baked goods, sugary cereals, and fried foods. Limit refined sugars to <6 tsp (25 g) for a 2000-calorie daily diet and <9 tsp (38 g) for a 3000-calorie daily diet. One medium cookie has about 2 tsp of sugar; a 12-oz can of a soft drink has about 10 tsp. Track calorie intake. Self-monitoring of food and beverage intake has been shown to be an effective strategy for weight management. Prolonged periods of fasting may impair adequate caloric and nutrient intake. Drink alcohol sparingly if at all. Lower levels of alcohol consumption are associated with a lower risk of cancer. For patients desiring further recommendations for dietary guidelines: Consider referral to a registered dietitian or brush polisher. The USDA approximate food plate volumes (http_s://www.Bringrs plate.gov) are: Vegetables and fruits should comprise half the volume of food on the plate Vegetables: 30% of plate; fruits 20% of plate Whole grains: 30% of plate Protein: 20% of plate Recommended sources of dietary components: Fat: plant sources such as olive or canola oil, avocados, seeds and nuts, and fatty fish Carbohydrates: fruits, vegetables, whole grains, and legumes Protein: poultry, fish, legumes, low-fat dairy foods, and nuts While the risks and benefits of soy foods for cancer survivors have been debated for many years, most studies to date show that moderate consumption of soy foods (up to 3 servings per day) are beneficial in promoting overall health and survival, with the strongest evidence existing for the prevention of lung cancer and reduction of breast cancer recurrence. Practice portion control. Make informed food choices through routine evaluation of food labels. Incorporate physical activity, particularly strength training, to assure optimal lean body mass (SPA-1). Track weight, diet, calories, and physical activity routines (eg, journaling, mobile phone apps). Limit alcohol intake to one drink per day or less for a woman and two drinks or less per day for a man. Avoid smoking! educated on all medications, benefits, side effects and risk, and educated on depression, anxiety, and ADHD, mood d/o and educated on compliance of medications, metabolic and movement d/o education appointment is, continue therapy discussion with patient about course of treatment and patient instructions. education on serotonin syndrome SSRI/SNRI side effects discussed including but not limited to, gastric upset, nausea, vomiting, diarrhea and/or constipation, weight changes, sexual side effects including loss of libido, increased suicidal thoughts/behavio rs in children and young adults, and serotonin syndrome. Second generation antipsychotics (SGAs) have metabolic syndrome issues with weight gain, increase in prolactin, increased waist circumference, increased lipids, and increased glucose. Thus routine monitoring of weight, metabolic labs, etc. is indicated. A general rank ordering of antipsychotics that have the greatest to the least risk of metabolic effects is olanzapine, quetiapine, risperidone, ziprasidone, and aripiprazole. However, weight gain can occur with all of these drugs and considerable variability exists among patients receiving the same drug regarding the risk of metabolic effects. Anti-psychotic agents not only increase the risk of metabolic disorder, they also increase the risk of CVA, akathisia, and movement disorders including EPS or tardive dyskinesia (more common with first generation antipsychotics) and more. Medication Management and Follow-Up - Plan: - Schedule follow-up appointments every 1-3 months to monitor the patient's response to the medication regimen. - Reinforce the importance of avoiding recreational drug use due to potential neurotoxicity and interactions with prescribed medications. 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 websites http_s://www.[facility].nih.gov/health /topics/mental-h ealth-medication s http_s://www.nam i.org/About-Ment al-Illness/Treat ments/Mental-Hea lth-Medications http_s://www.nam i.org/About-Ment al-Illness/Menta c-Qlgwvs-Vooyiom ons http_s://[employer]/depres sumeet/the-cogniti dm-ygulyjec-xj-d epression#treatm ents http__s://www.ni .nih.gov/healt h/topics/mental- health-medicatio ns http__s://www.na mi.org/About-Men camelia-Illness/Marissa tments/Mental-He alth-Medications http_s://shreya. h.gov/publicatio ns/drugfacts/can nabis-marijuana http_s://www.[employer]/can zzqzf-rkt-doxgtx yn-qtblxwnko-wno d/ 09/17/2025 Bipolar 1 disorder (ICD-10 - F31.9) Bipolar Disorder: Care Instructions material was published, Learning About How to Get Help During a Mental Health Crisis material was published, Learning About Movement Disorders From Antipsychotic Medicines material was published, Learning About Mood Disorders material was published, Bipolar Disorder: Care Instructions material was published, Learning About How to Get Help During a Mental Health Crisis material was published, Learning About Movement Disorders From Antipsychotic Medicines material was published, Learning About Mood Disorders material was published, Bipolar Disorder: Care Instructions material was published, Learning About Mood Disorders material was published, Learning About Movement Disorders From Antipsychotic Medicines material was published, Learning About How to Get Help During a Mental Health Crisis material was published 1. Bipolar depression - improved Abilify 10 mg at evening - discuss and educated on [place] for depression, irritable and suicide prevention educated on rx refer to therapy [facility]- plan to see walk in clinic therapy today [place] 450 mg ER AT BEDTIME for Bipolar s/s and help passive thoughts- improved educated on medication. [place] education [place] use reviewed. Risks include risks of toxicity, arrhythmias, cognitive impairment, changes in muscle coordination, weight gain, thyroid and parathyroid changes, polydipsia and polyuria, alopecia, tremor and teratogenicity ( defects). Recommend avoid in females (use contraception consistently). Routine lab monitoring may be required. Patient consented to treatment. Indications: acute erlin (euphoric erlin), bipolar prophylaxis, bipolar depression treatment or augmentation, unipolar depression as augmentation with antidepressants Average dose = I,500 mg/day, target serum level 0.8 [place] is known to reduce risk of suicide. Mechanism of action: inhibits inositol monophosphatase, interfering with 2nd messengers Nuisance Side Effects: sedation, cognitive difficulties, decreased creativity, dry mouth, tremor, increased appetite, weight gain, polydipsia, polyuria, nausea, diarrhea, acne, alopecia Serious Side Effects: Thyroid: hypothyroidism (5%), goiter (3%) Cardiac: decrease in cardiac conduction leading to sick sinus syndrome, blocks SA node Teratogenicity: Ebstein's anomaly 2 in 1,000 Renal: chronic renal insufficiency (after 10-20 years), acute renal failure, polyuria occurs in 50-70% [lithium antagonizes anti-diuretic hormone (ADH)], diabetes insipidus in 10% (treat with amiloride) Drug-drug interactions: increase in lithium: NSAIDs, JOSEPHINE inhibitors, angiotensin II antagonists If you are planning on becoming , notify your health care provider so that he/she can best manage your medications. People living with bipolar disorder who wish to become face important decisions. It is important to discuss the risks and benefits of treatment with your doctor and caregivers. [place] has been associated with an increased risk of Ebstein's anomaly, a heart valve defect. Even though data suggest that the risk of Ebstein's anomaly from first trimester use of lithium is very low, an ultrasound of the heart is recommended at 16 to 20 weeks of gestation. [place] levels should be monitored monthly in early and weekly near delivery. Do not stop taking lithium without first speaking to your health care provider. Discontinuing mood stabilizer medications during has been associated with a significant increase in symptom relapse. If an overdose occurs call your doctor or 911. You may need urgent medical care. You may also contact the poison control center at . A specific treatment to reverse the effects of lithium does not exist, but there are treatments to decrease the effects of the medication. Only a doctor can determine if you require treatment. Avoid drinking alcohol or using illegal drugs while you are taking lithium. They may decrease the benefits (e.g., worsen your condition) and increase adverse effects (e.g., sedation) of the medication. Avoid low sodium diets and dehydration because this can increase the risk of lithium toxicity. Avoid over the counter and prescription pain medications that contain nonsteroidal anti-inflammator y medications (NSAIDS) such as ibuprofen (Motrin, Advil) or naproxen (Aleve, Naprosyn) because these medications can increase the risk of toxicity from lithium. Avoid excessive intake of caffeinated beverages, such as coffee, tea, cola or energy drinks, since these may decrease levels of lithium and decrease effectiveness of the medication. Discontinuing caffeine use may increase lithium levels. Consult your health care provider before reducing or stopping caffeine use. What are the possible side effects of lithium? Common side effects Headache Nausea or vomiting Diarrhea Dizziness or drowsiness Changes in appetite Hand tremors Dry mouth Increased thirst Increased urination Thinning of hair or hair loss Acne-like rash Rare/Serious side effects Signs of lithium toxicity include severe nausea and vomiting, severe hand tremors, confusion, vision changes, and unsteadiness while standing or walking. These symptoms need to be addressed immediately with a medical doctor to ensure your lithium level is not dangerously high. In rare cases, lithium may lead to a reversible condition known as diabetes insipidus. If this occurs you would notice a significant increase in thirst and how much fluid you drink and how much you urinate. Talk to your doctor if you notice you are urinating more frequently than usual. Are There Any Risks For Taking [place] For Long Periods Of Time? Hypothyroidism (low levels of thyroid hormone) may occur with long-term lithium use. Rare kidney problems have been associated with long-term use of lithium. The risk increases with high levels of lithium. Your doctor will monitor your kidney function at routine check-ups to ensure this does not occur. Summary of Black Box Warnings [place] Toxicity [place] toxicity is closely related to lithium blood levels and can occur at doses close to therapeutic levels; lithium levels should be monitored closely when starting the medication or if individuals experience side effects of the medication. 2. Anxiety Therapy- see walk in clinic [place] discuss coping skills Buspar 10 mg three times a day Vistaril 25 mg up to 3x day PRN for anxiety and panic - educated patient to take rx three times a day to help anxiety and panic Propranolol 10 mg daily prn for anxiety and panic - helping anxiety educated on all rx and monitor B/P 3. Nicotine use- vaping Do not smoke. Nicotine and other chemicals in cigarettes and cigars can cause lung damage. Ask your healthcare provider for information if you currently smoke and need help to quit. E-cigarettes or smokeless tobacco still contain nicotine. Talk to your healthcare provider before you use these products. education on decrease to stopping nicotine products and stop smoking hotline given Quit - Yes [place] Tobacco Quitline Call a Smoking Quitline The National [employer] [place]'s Smoking Quitline, (6-783-82O-QUIT) Smokefree.gov, which connects you with your [facility]'s Quitline, (1-522-SLBCMGX) [facility] Smoking Quitline, (5-782-RHBWOTL) 4. cannabis Cannabis Use Education Recommend decrease/stop cannabis use as it can negatively impact mood, motivation, anxiety, sleep, focus/concentrat ion/memory (vigilance, elasticity, processing and attention); can also contribute to development of psychosis. Recommend decrease/stop cannabis use as it may be negatively impacting mood, motivation, anxiety, sleep, focus; can also contribute to development of psychosis Cannabis/marijua na information: http__s://shreya.n ih.gov/publicati ons/drugfacts/ca nnabis-marijuana http__s://www.[employer].com/ca prnfbf-jvd-clrcy cxp-bulypvuzl-cp hd/ 5. Passive suicidal thoughts - improved no passive thoughts no plans or intent denies SI/HI no active thoughts NO thoughts harm to self or others discuss go to nearest ER if have active thoughts, increase passive thoughts, plans or intent saftey plan discuss [phone]/911 discuss support system [place] added and educated 6. ADHD symptoms Creyos scheduled discuss non stimulates related to cannabis use Evidence suggests an active lifestyle and achieving and maintaining an ideal body weight (20-25 BMI) is optimal for health. Experts recommend at least 30 minutes of moderate to vigorous activity per day as tolerated, 5 days a week Eat healthy, including plenty of fresh fruits and vegetables daily. Strive to have 2/3 cup of your plate to be vegetables, fruits, whole grains and beans, while 1/3 or less should be an animal product. Choose fish and chicken and limit red meat and processed meats. Assess dietary pattern for daily intake of fruits, vegetables, and whole grains, as well as red and processed meats, alcohol, and processed foods or beverages with added fats and/or sugars. Assess timing of meals and snacking habits, portion size, frequency of eating out, and use of added fats and/or sugars to foods or beverages. All survivors should be encouraged to: Follow a predominantly nutrient-rich plant-based diet, including vegetables, fruit, and whole grains. Make informed choices about food to ensure variety and adequate nutrient intake. Limit consumption of red meat such as beef, pork, or valdez to no more than 18 ounces (cooked) per week. Eat processed meats such as ham, hot dogs, deli cuts, weeks, and sausage sparingly if at all. Limit consumption of fast foods and other processed foods that are high in fat, starches, or sugars such as chips, cookies, candy bars, desserts, processed baked goods, sugary cereals, and fried foods. Limit refined sugars to <6 tsp (25 g) for a 2000-calorie daily diet and <9 tsp (38 g) for a 3000-calorie daily diet. One medium cookie has about 2 tsp of sugar; a 12-oz can of a soft drink has about 10 tsp. Track calorie intake. Self-monitoring of food and beverage intake has been shown to be an effective strategy for weight management. Prolonged periods of fasting may impair adequate caloric and nutrient intake. Drink alcohol sparingly if at all. Lower levels of alcohol consumption are associated with a lower risk of cancer. For patients desiring further recommendations for dietary guidelines: Consider referral to a registered dietitian or brush polisher. The USDA approximate food plate volumes (http_s://www.Bringrs plate.gov) are: Vegetables and fruits should comprise half the volume of food on the plate Vegetables: 30% of plate; fruits 20% of plate Whole grains: 30% of plate Protein: 20% of plate Recommended sources of dietary components: Fat: plant sources such as olive or canola oil, avocados, seeds and nuts, and fatty fish Carbohydrates: fruits, vegetables, whole grains, and legumes Protein: poultry, fish, legumes, low-fat dairy foods, and nuts While the risks and benefits of soy foods for cancer survivors have been debated for many years, most studies to date show that moderate consumption of soy foods (up to 3 servings per day) are beneficial in promoting overall health and survival, with the strongest evidence existing for the prevention of lung cancer and reduction of breast cancer recurrence. Practice portion control. Make informed food choices through routine evaluation of food labels. Incorporate physical activity, particularly strength training, to assure optimal lean body mass (SPA-1). Track weight, diet, calories, and physical activity routines (eg, journaling, mobile phone apps). Limit alcohol intake to one drink per day or less for a woman and two drinks or less per day for a man. Avoid smoking! educated on all medications, benefits, side effects and risk, and educated on depression, anxiety, and ADHD, mood d/o and educated on compliance of medications, metabolic and movement d/o education appointment is, continue therapy discussion with patient about course of treatment and patient instructions. education on serotonin syndrome SSRI/SNRI side effects discussed including but not limited to, gastric upset, nausea, vomiting, diarrhea and/or constipation, weight changes, sexual side effects including loss of libido, increased suicidal thoughts/behavio rs in children and young adults, and serotonin syndrome. Second generation antipsychotics (SGAs) have metabolic syndrome issues with weight gain, increase in prolactin, increased waist circumference, increased lipids, and increased glucose. Thus routine monitoring of weight, metabolic labs, etc. is indicated. A general rank ordering of antipsychotics that have the greatest to the least risk of metabolic effects is olanzapine, quetiapine, risperidone, ziprasidone, and aripiprazole. However, weight gain can occur with all of these drugs and considerable variability exists among patients receiving the same drug regarding the risk of metabolic effects. Anti-psychotic agents not only increase the risk of metabolic disorder, they also increase the risk of CVA, akathisia, and movement disorders including EPS or tardive dyskinesia (more common with first generation antipsychotics) and more. Medication Management and Follow-Up - Plan: - Schedule follow-up appointments every 1-3 months to monitor the patient's response to the medication regimen. - Reinforce the importance of avoiding recreational drug use due to potential neurotoxicity and interactions with prescribed medications. 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 websites http_s://www.[facility] h.nih.gov/health /topics/mental-h ealth-medication s http_s://www.nam i.org/About-Ment al-Illness/Treat ments/Mental-Hea lth-Medications http_s://www.nam i.org/About-Ment al-Illness/Menta z-Zlonmy-Kzowxei ons http_s://psychSMATOOS/depres sumeet/the-cogniti mp-vybcmxxn-ek-d epression#treatm ents http__s://www.ni .nih.gov/healt h/topics/mental- health-medicatio ns http__s://www.na mi.org/About-Men camelia-Illness/Marissa tments/Mental-He alth-Medications http_s://shreya.ni h.gov/publicatio ns/drugfacts/can nabis-marijuana http_s://www.[employer]/can ekxts-vfg-usnybl kw-sokkjjdoa-wzm d/ 09/24/2025 Attention deficit hyperactivity disorder (ADHD), unspecified ADHD type (ICD-10 - F90.9) Patient ID: [id number] Date of : Assessment Date: Age Group: 18-24 Assessment Type: ADHD (ASRS v1.1 - Part A) ADHD Screening Outcome: Indicative Summary:The ASRS v1.1 - Part A score is 6 out of 6, clearly exceeding the diagnostic threshold of 3 and indicating a strong presence of ADHD symptoms. Cognitive assessment shows six markers outside the typical range, indicating broad executive function impairments. Significant findings include:- Low spatial working memory (7th percentile)- Elevated reaction time variability in both response inhibition (96th percentile) and sustained attention tasks (94th percentile)- Increased omission errors (89th percentile) and slowing after errors (14th percentile), suggesting challenges in maintaining consistent attention and post-error adjustment- Weak interference control in the response inhibition task (15th percentile) Despite an average planning score, the overall cognitive profile reflects core ADHD features such as reduced working memory, inconsistent response control, and difficulties in maintaining focus over time. Recommendations: 1. Non-pharmacologi harinder interventions are essential: - Cognitive behavioral strategies focused on attention regulation and working memory support - Task chunking, visual planners, and digital reminders to enhance follow-through - Mindfulness-base d techniques and regular aerobic activity to reduce cognitive variability - Cognitive training programs targeting inhibition and sustained attention 2. Pharmacological Treatment: - Non-stimulant medications such as atomoxetine or extended-release guanfacine should be considered as the first treatment option - Stimulant medications may be considered only if non-stimulants are ineffective - Stimulant use is not recommended if the patient is using or abusing alcohol, cannabis, or illicit substances - If stimulants are prescribed, monitor with routine urine drug screening, blood pressure checks, weight monitoring, and regular follow-up visits for dose adjustment A diagnostic clinical interview is recommended to confirm ADHD and develop a tailored treatment plan. 10/08/2025 BEKA (generalized anxiety disorder) (ICD-10 - F41.1) with medication discontinuation concerns Assessment: Patient is with due date in May according to apps, with blood test completed but results pending. She discontinued all psychiatric medications (lithium, Abilify, hydroxyzine) per primary care provider due to . First appointment scheduled for November 01. Patient has strong family history of uncomplicated pregnancies (great-grandmoth er had 10 children, grandmother and mother had natural births with no issues). No personal history of STDs or family history of ectopic pregnancies. Patient is young, healthy, and quickly stopped smoking upon learning of . Currently using 14mg nicotine patches with plan to taper. Patient reports significant worry about ectopic , health, and complications despite low risk factors. Plan: - Patient scheduled to see Stella (psychiatrist) immediately following this session to discuss safe medication options during - Continue nicotine patch taper per PCP instructions - Use paper straws cut to cigarette size for uuzt-te-mvlcb habit replacement as part of harm reduction and behavior modification - Implement scheduled worry time technique: designate one hour daily for worrying, redirect worrying thoughts outside this time to scheduled period - Practice thought defusing techniques including filing away thoughts, movie theater visualization, and using silly voices for anxious thoughts - Write down worrying thoughts and discard the paper as coping strategy Bipolar disorder with current erlin Assessment: Patient is currently experiencing manic symptoms after discontinuing all psychiatric medications (lithium, Abilify, hydroxyzine). Friend with bipolar disorder observed rapid speech and identified manic presentation, recommending immediate professional consultation. Patient acknowledges being completely manic and reports increased sex drive consistent with manic episode. She is unmedicated and aware of increased suicide risk in unmedicated bipolar patients. Patient expresses readiness to take therapy seriously and requests optimal treatment approach for unmedicated bipolar disorder. Plan: - Increase therapy frequency to every 2 weeks given current instability - Consider DBT skills group starting in November (Tuesdays 3:30-5:00 PM), though patient expresses concern about group format due to social anxiety and scheduling conflicts Suicidal ideation without intent Assessment: Patient reports suicidal thoughts triggered by relationship stress and sexual rejection from boyfriend, exacerbated by current manic state and medication withdrawal. She demonstrates insight by distinguishing current thoughts from past manipulative threats that led to psychiatric hospitalization. Patient reports no intent to act on thoughts and expresses terror of . Has established safety plan including distraction techniques and reaching out to support system when experiencing intense urges. Plan: - Continue current safety strategies: calling friends/family for distraction when experiencing suicidal thoughts - Utilize boyfriend as immediate support when home (patient reports living together) - Acknowledge any intrusive thoughts and practice thought defusion and DBT non stick mind Sleep disturbance Assessment: Patient reports significant sleep disruption, currently running on only 3 hours of sleep. Sleep difficulties likely multifactorial, related to medication withdrawal, , manic symptoms, and anxiety. Patient inquired about melatonin safety during but was advised to discuss with psychiatrist Stella. Plan: - Implement DBT sleep hygiene protocol - Use TIP (Temperature, Intense exercise, Paced breathing, Paired muscle relaxation) for anxious thoughts at bedtime minus intense exercise - Apply relaxation techniques for pnqhbr-fl-xgiyu awakenings - Discuss melatonin safety with psychiatrist Stella Relationship stress Assessment: Patient reports significant relationship strain with boyfriend who is father of baby. She has gained 40 pounds and boyfriend has stopped initiating sexual contact, which patient attributes to weight gain but boyfriend cites stress about . Patient's increased sex drive due to erlin and creates additional frustration with sexual rejection. She reports episodes of crying and accusations of infidelity directed at boyfriend. Patient acknowledges unfairness of emotional burden on partner given her current psychiatric instability. Plan: - Continue individual therapy to address relationship communication and emotional regulation - Address manic symptoms contributing to increased libido and emotional dysregulation 10/08/2025 Bipolar 1 disorder (ICD-10 - F31.9) 10/08/25: Current manic episode with medication discontinuation concerns Assessment: Patient is with due date in May according to apps, with blood test completed but results pending. She discontinued all psychiatric medications (lithium, Abilify, hydroxyzine) per primary care provider due to . First appointment scheduled for November 01. Patient has strong family history of uncomplicated pregnancies (great-grandmoth er had 10 children, grandmother and mother had natural births with no issues). No personal history of STDs or family history of ectopic pregnancies. Patient is young, healthy, and quickly stopped smoking upon learning of . Currently using 14mg nicotine patches with plan to taper. Patient reports significant worry about ectopic , health, and complications despite low risk factors. Plan: - Patient scheduled to see Stella (psychiatrist) immediately following this session to discuss safe medication options during - Continue nicotine patch taper per PCP instructions - Use paper straws cut to cigarette size for xamw-nj-wwwvy habit replacement as part of harm reduction and behavior modification - Implement scheduled worry time technique: designate one hour daily for worrying, redirect worrying thoughts outside this time to scheduled period - Practice thought defusing techniques including filing away thoughts, movie theater visualization, and using silly voices for anxious thoughts - Write down worrying thoughts and discard the paper as coping strategy Bipolar disorder with current erlin Assessment: Patient is currently experiencing manic symptoms after discontinuing all psychiatric medications (lithium, Abilify, hydroxyzine). Friend with bipolar disorder observed rapid speech and identified manic presentation, recommending immediate professional consultation. Patient acknowledges being completely manic and reports increased sex drive consistent with manic episode. She is unmedicated and aware of increased suicide risk in unmedicated bipolar patients. Patient expresses readiness to take therapy seriously and requests optimal treatment approach for unmedicated bipolar disorder. Plan: - Increase therapy frequency to every 2 weeks given current instability - Consider DBT skills group starting in November (Tuesdays 3:30-5:00 PM), though patient expresses concern about group format due to social anxiety and scheduling conflicts Suicidal ideation without intent Assessment: Patient reports suicidal thoughts triggered by relationship stress and sexual rejection from boyfriend, exacerbated by current manic state and medication withdrawal. She demonstrates insight by distinguishing current thoughts from past manipulative threats that led to psychiatric hospitalization. Patient reports no intent to act on thoughts and expresses terror of . Has established safety plan including distraction techniques and reaching out to support system when experiencing intense urges. Plan: - Continue current safety strategies: calling friends/family for distraction when experiencing suicidal thoughts - Utilize boyfriend as immediate support when home (patient reports living together) - Acknowledge any intrusive thoughts and practice thought defusion and DBT non stick mind Sleep disturbance Assessment: Patient reports significant sleep disruption, currently running on only 3 hours of sleep. Sleep difficulties likely multifactorial, related to medication withdrawal, , manic symptoms, and anxiety. Patient inquired about melatonin safety during but was advised to discuss with psychiatrist Stella. Plan: - Implement DBT sleep hygiene protocol - Use TIP (Temperature, Intense exercise, Paced breathing, Paired muscle relaxation) for anxious thoughts at bedtime minus intense exercise - Apply relaxation techniques for ovhwxv-fc-ajprp awakenings - Discuss melatonin safety with psychiatrist Stella Relationship stress Assessment: Patient reports significant relationship strain with boyfriend who is father of baby. She has gained 40 pounds and boyfriend has stopped initiating sexual contact, which patient attributes to weight gain but boyfriend cites stress about . Patient's increased sex drive due to erlin and creates additional frustration with sexual rejection. She reports episodes of crying and accusations of infidelity directed at boyfriend. Patient acknowledges unfairness of emotional burden on partner given her current psychiatric instability. Plan: - Continue individual therapy to address relationship communication and emotional regulation - Address manic symptoms contributing to increased libido and emotional dysregulation 10/08/2025 BEKA (generalized anxiety disorder) (ICD-10 - F41.1) Generalized Anxiety Disorder: Care Instructions material was published, Learning About Generalized Anxiety Disorder material was published, Learning About Anxiety Disorders material was published, Learning About Generalized Anxiety Disorder material was published, Generalized Anxiety Disorder: Care Instructions material was published, Learning About Anxiety Disorders material was published, Learning About Generalized Anxiety Disorder material was published, Generalized Anxiety Disorder: Care Instructions material was published, Life After [employer]: Coping with an Anxiety Disorder material was published, Learning About Anxiety Disorders material was published, Managing a Health Condition and Your Anxiety About It material was published, Learning About Generalized Anxiety Disorder material was published, Generalized Anxiety Disorder: Care Instructions material was published, Learning About Anxiety Disorders material was published 1. Bipolar - PATIENT STOPPED ALL RX 10/02/25 when found out - presently erlin restart Abilify 10 mg at evening - schedule to see [facility] MATE/OB- on discuss and educated on rx and preganancy and Abilify- National Registry for Atypical Antipsychotics - 1- [phone] www.[facility] health.org/clinc al -kib-yooiluvy-gq ogram/pregnancyr egistry discuss and educated on [place] for depression, irritable and suicide prevention educated on rx refer to therapy LEXI- currently off [place] since 10/02/25 hx [place] 450 mg ER AT BEDTIME for Bipolar s/s and help passive thoughts- educated on medication. [place] education [place] use reviewed. Risks include risks of toxicity, arrhythmias, cognitive impairment, changes in muscle coordination, weight gain, thyroid and parathyroid changes, polydipsia and polyuria, alopecia, tremor and teratogenicity ( defects). Recommend avoid in females (use contraception consistently). Routine lab monitoring may be required. Patient consented to treatment. Indications: acute erlin (euphoric erlin), bipolar prophylaxis, bipolar depression treatment or augmentation, unipolar depression as augmentation with antidepressants Average dose = I,500 mg/day, target serum level 0.8 [place] is known to reduce risk of suicide. Mechanism of action: inhibits inositol monophosphatase, interfering with 2nd messengers Nuisance Side Effects: sedation, cognitive difficulties, decreased creativity, dry mouth, tremor, increased appetite, weight gain, polydipsia, polyuria, nausea, diarrhea, acne, alopecia Serious Side Effects: Thyroid: hypothyroidism (5%), goiter (3%) Cardiac: decrease in cardiac conduction leading to sick sinus syndrome, blocks SA node Teratogenicity: Ebstein's anomaly 2 in 1,000 Renal: chronic renal insufficiency (after 10-20 years), acute renal failure, polyuria occurs in 50-70% [lithium antagonizes anti-diuretic hormone (ADH)], diabetes insipidus in 10% (treat with amiloride) Drug-drug interactions: increase in lithium: NSAIDs, JOSEPHINE inhibitors, angiotensin II antagonists If you are planning on becoming , notify your health care provider so that he/she can best manage your medications. People living with bipolar disorder who wish to become face important decisions. It is important to discuss the risks and benefits of treatment with your doctor and caregivers. [place] has been associated with an increased risk of Ebstein's anomaly, a heart valve defect. Even though data suggest that the risk of Ebstein's anomaly from first trimester use of lithium is very low, an ultrasound of the heart is recommended at 16 to 20 weeks of gestation. [place] levels should be monitored monthly in early and weekly near delivery. Do not stop taking lithium without first speaking to your health care provider. Discontinuing mood stabilizer medications during has been associated with a significant increase in symptom relapse. If an overdose occurs call your doctor or 911. You may need urgent medical care. You may also contact the poison control center at . A specific treatment to reverse the effects of lithium does not exist, but there are treatments to decrease the effects of the medication. Only a doctor can determine if you require treatment. Avoid drinking alcohol or using illegal drugs while you are taking lithium. They may decrease the benefits (e.g., worsen your condition) and increase adverse effects (e.g., sedation) of the medication. Avoid low sodium diets and dehydration because this can increase the risk of lithium toxicity. Avoid over the counter and prescription pain medications that contain nonsteroidal anti-inflammator y medications (NSAIDS) such as ibuprofen (Motrin, Advil) or naproxen (Aleve, Naprosyn) because these medications can increase the risk of toxicity from lithium. Avoid excessive intake of caffeinated beverages, such as coffee, tea, cola or energy drinks, since these may decrease levels of lithium and decrease effectiveness of the medication. Discontinuing caffeine use may increase lithium levels. Consult your health care provider before reducing or stopping caffeine use. What are the possible side effects of lithium? Common side effects Headache Nausea or vomiting Diarrhea Dizziness or drowsiness Changes in appetite Hand tremors Dry mouth Increased thirst Increased urination Thinning of hair or hair loss Acne-like rash Rare/Serious side effects Signs of lithium toxicity include severe nausea and vomiting, severe hand tremors, confusion, vision changes, and unsteadiness while standing or walking. These symptoms need to be addressed immediately with a medical doctor to ensure your lithium level is not dangerously high. In rare cases, lithium may lead to a reversible condition known as diabetes insipidus. If this occurs you would notice a significant increase in thirst and how much fluid you drink and how much you urinate. Talk to your doctor if you notice you are urinating more frequently than usual. Are There Any Risks For Taking [place] For Long Periods Of Time? Hypothyroidism (low levels of thyroid hormone) may occur with long-term lithium use. Rare kidney problems have been associated with long-term use of lithium. The risk increases with high levels of lithium. Your doctor will monitor your kidney function at routine check-ups to ensure this does not occur. Summary of Black Box Warnings [place] Toxicity [place] toxicity is closely related to lithium blood levels and can occur at doses close to therapeutic levels; lithium levels should be monitored closely when starting the medication or if individuals experience side effects of the medication. 2. Anxiety Therapy- discuss coping skills stopped Buspar 10 mg three times a day- currently off since 10/02/25 stopped Vistaril 25 mg up to 3x day PRN for anxiety and panic - currently off since 10/02/25 stopped Propranolol 10 mg daily prn for anxiety and panic - helping anxiety- currently off since 10/02/25 educated on all rx and monitor B/P 3. Nicotine use- vaping Do not smoke. Nicotine and other chemicals in cigarettes and cigars can cause lung damage. Ask your healthcare provider for information if you currently smoke and need help to quit. E-cigarettes or smokeless tobacco still contain nicotine. Talk to your healthcare provider before you use these products. education on decrease to stopping nicotine products and stop smoking hotline given -Quit - Yes [place] Tobacco Quitline Call a Smoking Quitline The National Cancer [place]'s Smoking Quitline, (0-180-94Q-QUIT) Smokefree.gov, which connects you with your State's Quitline, (4-943-PKHAEHL) Veterans Smoking Quitline, (1-161-FFXVWRC) 4. cannabis- stopped 10/02/25 Cannabis Use Education Recommend decrease/stop cannabis use as it can negatively impact mood, motivation, anxiety, sleep, focus/concentrat ion/memory (vigilance, elasticity, processing and attention); can also contribute to development of psychosis. Recommend decrease/stop cannabis use as it may be negatively impacting mood, motivation, anxiety, sleep, focus; can also contribute to development of psychosis Cannabis/marijua na information: http__s://shreya.n ih.gov/publicati ons/drugfacts/[place] nnabis-marijuana http__s://[employer].Given.to/ca wdtaxf-cox-dryqc ckl-xvxslguqe-mq hd/ 5. Passive suicidal thoughts - passive thoughts - restart Abilify no plans or intent denies SI/HI no active thoughts NO thoughts harm to self or others discuss go to nearest ER if have active thoughts, increase passive thoughts, plans or intent saftey plan discuss [phone]/911 discuss support system [place] added and educated 6. ADHD symptoms Creyos scheduled discuss non stimulates related to cannabis use no rx at this time Evidence suggests an active lifestyle and achieving and maintaining an ideal body weight (20-25 BMI) is optimal for health. Experts recommend at least 30 minutes of moderate to vigorous activity per day as tolerated, 5 days a week Eat healthy, including plenty of fresh fruits and vegetables daily. Strive to have 2/3 cup of your plate to be vegetables, fruits, whole grains and beans, while 1/3 or less should be an animal product. Choose fish and chicken and limit red meat and processed meats. Assess dietary pattern for daily intake of fruits, vegetables, and whole grains, as well as red and processed meats, alcohol, and processed foods or beverages with added fats and/or sugars. Assess timing of meals and snacking habits, portion size, frequency of eating out, and use of added fats and/or sugars to foods or beverages. All survivors should be encouraged to: Follow a predominantly nutrient-rich plant-based diet, including vegetables, fruit, and whole grains. Make informed choices about food to ensure variety and adequate nutrient intake. Limit consumption of red meat such as beef, pork, or valdez to no more than 18 ounces (cooked) per week. Eat processed meats such as ham, hot dogs, deli cuts, weeks, and sausage sparingly if at all. Limit consumption of fast foods and other processed foods that are high in fat, starches, or sugars such as chips, cookies, candy bars, desserts, processed baked goods, sugary cereals, and fried foods. Limit refined sugars to <6 tsp (25 g) for a 2000-calorie daily diet and <9 tsp (38 g) for a 3000-calorie daily diet. One medium cookie has about 2 tsp of sugar; a 12-oz can of a soft drink has about 10 tsp. Track calorie intake. Self-monitoring of food and beverage intake has been shown to be an effective strategy for weight management. Prolonged periods of fasting may impair adequate caloric and nutrient intake. Drink alcohol sparingly if at all. Lower levels of alcohol consumption are associated with a lower risk of cancer. For patients desiring further recommendations for dietary guidelines: Consider referral to a registered dietitian or brush polisher. The USDA approximate food plate volumes (http_s://www.Bringrs plate.gov) are: Vegetables and fruits should comprise half the volume of food on the plate Vegetables: 30% of plate; fruits 20% of plate Whole grains: 30% of plate Protein: 20% of plate Recommended sources of dietary components: Fat: plant sources such as olive or canola oil, avocados, seeds and nuts, and fatty fish Carbohydrates: fruits, vegetables, whole grains, and legumes Protein: poultry, fish, legumes, low-fat dairy foods, and nuts While the risks and benefits of soy foods for cancer survivors have been debated for many years, most studies to date show that moderate consumption of soy foods (up to 3 servings per day) are beneficial in promoting overall health and survival, with the strongest evidence existing for the prevention of lung cancer and reduction of breast cancer recurrence. Practice portion control. Make informed food choices through routine evaluation of food labels. Incorporate physical activity, particularly strength training, to assure optimal lean body mass (SPA-1). Track weight, diet, calories, and physical activity routines (eg, journaling, mobile phone apps). Limit alcohol intake to one drink per day or less for a woman and two drinks or less per day for a man. Avoid smoking! educated on all medications, benefits, side effects and risk, and educated on depression, anxiety, and ADHD, mood d/o and educated on compliance of medications, metabolic and movement d/o education appointment is, continue therapy discussion with patient about course of treatment and patient instructions. education on serotonin syndrome SSRI/SNRI side effects discussed including but not limited to, gastric upset, nausea, vomiting, diarrhea and/or constipation, weight changes, sexual side effects including loss of libido, increased suicidal thoughts/behavio rs in children and young adults, and serotonin syndrome. Second generation antipsychotics (SGAs) have metabolic syndrome issues with weight gain, increase in prolactin, increased waist circumference, increased lipids, and increased glucose. Thus routine monitoring of weight, metabolic labs, etc. is indicated. A general rank ordering of antipsychotics that have the greatest to the least risk of metabolic effects is olanzapine, quetiapine, risperidone, ziprasidone, and aripiprazole. However, weight gain can occur with all of these drugs and considerable variability exists among patients receiving the same drug regarding the risk of metabolic effects. Anti-psychotic agents not only increase the risk of metabolic disorder, they also increase the risk of CVA, akathisia, and movement disorders including EPS or tardive dyskinesia (more common with first generation antipsychotics) and more. Medication Management and Follow-Up - Plan: - Schedule follow-up appointments every 1-3 months to monitor the patient's response to the medication regimen. - Reinforce the importance of avoiding recreational drug use due to potential neurotoxicity and interactions with prescribed medications. 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 websites http_s://www.[facility].gov/health /topics/mental-h ealth-medication s http_s://www.nam i.org/About-Ment al-Illness/Treat ments/Mental-Hea lth-Medications http_s://www.nam i.org/About-Ment al-Illness/Menta k-Vdcnht-Zwoegpq ons http_s://psychSMATOOS/depres sumeet/the-cogniti ml-hhpkfaue-tu-d epression#treatm ents http__s://www.ni .nih.gov/healt h/topics/mental- health-medicatio ns http__s://www.na mi.org/About-Men camelia-Illness/Marissa tments/Mental-He alth-Medications http_s://shreya. h.gov/publicatio ns/drugfacts/can nabis-marijuana http_s://www.[employer]/can canvq-ryn-gvwnzi hn-buxttubzp-dbn d/ 10/08/2025 Bipolar 1 disorder (ICD-10 - F31.9) Bipolar Disorder: Care Instructions material was published, Learning About How to Get Help During a Mental Health Crisis material was published, Learning About Movement Disorders From Antipsychotic Medicines material was published, Learning About Mood Disorders material was published, Bipolar Disorder: Care Instructions material was published, Learning About How to Get Help During a Mental Health Crisis material was published, Learning About Movement Disorders From Antipsychotic Medicines material was published, Learning About Mood Disorders material was published, Bipolar Disorder: Care Instructions material was published, Learning About Mood Disorders material was published, Learning About Movement Disorders From Antipsychotic Medicines material was published, Learning About How to Get Help During a Mental Health Crisis material was published, Bipolar Disorder: Care Instructions material was published, Learning About Movement Disorders From Antipsychotic Medicines material was published, Learning About Mood Disorders material was published, Learning About How to Get Help During a Mental Health Crisis material was published 1. Bipolar - PATIENT STOPPED ALL RX 10/02/25 when found out - presently erlin restart Abilify 10 mg at evening - schedule to see [facility]ATE/OB- on discuss and educated on rx and preganancy and Abilify- National Registry for Atypical Antipsychotics - 1- [id number] www.[facility].org/clinc al -eiu-qjnhrqye-ah ogram/pregnancyr egistry discuss and educated on [place] for depression, irritable and suicide prevention educated on rx refer to therapy LEXI- currently off [place] since 10/02/25 hx [place] 450 mg ER AT BEDTIME for Bipolar s/s and help passive thoughts- educated on medication. [place] education [place] use reviewed. Risks include risks of toxicity, arrhythmias, cognitive impairment, changes in muscle coordination, weight gain, thyroid and parathyroid changes, polydipsia and polyuria, alopecia, tremor and teratogenicity ( defects). Recommend avoid in females (use contraception consistently). Routine lab monitoring may be required. Patient consented to treatment. Indications: acute erlin (euphoric erlin), bipolar prophylaxis, bipolar depression treatment or augmentation, unipolar depression as augmentation with antidepressants Average dose = I,500 mg/day, target serum level 0.8 [place] is known to reduce risk of suicide. Mechanism of action: inhibits inositol monophosphatase, interfering with 2nd messengers Nuisance Side Effects: sedation, cognitive difficulties, decreased creativity, dry mouth, tremor, increased appetite, weight gain, polydipsia, polyuria, nausea, diarrhea, acne, alopecia Serious Side Effects: Thyroid: hypothyroidism (5%), goiter (3%) Cardiac: decrease in cardiac conduction leading to sick sinus syndrome, blocks SA node Teratogenicity: Ebstein's anomaly 2 in 1,000 Renal: chronic renal insufficiency (after 10-20 years), acute renal failure, polyuria occurs in 50-70% [lithium antagonizes anti-diuretic hormone (ADH)], diabetes insipidus in 10% (treat with amiloride) Drug-drug interactions: increase in lithium: NSAIDs, JOSEPHINE inhibitors, angiotensin II antagonists If you are planning on becoming , notify your health care provider so that he/she can best manage your medications. People living with bipolar disorder who wish to become face important decisions. It is important to discuss the risks and benefits of treatment with your doctor and caregivers. [place] has been associated with an increased risk of Ebstein's anomaly, a heart valve defect. Even though data suggest that the risk of Ebstein's anomaly from first trimester use of lithium is very low, an ultrasound of the heart is recommended at 16 to 20 weeks of gestation. [place] levels should be monitored monthly in early and weekly near delivery. Do not stop taking lithium without first speaking to your health care provider. Discontinuing mood stabilizer medications during has been associated with a significant increase in symptom relapse. If an overdose occurs call your doctor or 911. You may need urgent medical care. You may also contact the poison control center at . A specific treatment to reverse the effects of lithium does not exist, but there are treatments to decrease the effects of the medication. Only a doctor can determine if you require treatment. Avoid drinking alcohol or using illegal drugs while you are taking lithium. They may decrease the benefits (e.g., worsen your condition) and increase adverse effects (e.g., sedation) of the medication. Avoid low sodium diets and dehydration because this can increase the risk of lithium toxicity. Avoid over the counter and prescription pain medications that contain nonsteroidal anti-inflammator y medications (NSAIDS) such as ibuprofen (Motrin, Advil) or naproxen (Aleve, Naprosyn) because these medications can increase the risk of toxicity from lithium. Avoid excessive intake of caffeinated beverages, such as coffee, tea, cola or energy drinks, since these may decrease levels of lithium and decrease effectiveness of the medication. Discontinuing caffeine use may increase lithium levels. Consult your health care provider before reducing or stopping caffeine use. What are the possible side effects of lithium? Common side effects Headache Nausea or vomiting Diarrhea Dizziness or drowsiness Changes in appetite Hand tremors Dry mouth Increased thirst Increased urination Thinning of hair or hair loss Acne-like rash Rare/Serious side effects Signs of lithium toxicity include severe nausea and vomiting, severe hand tremors, confusion, vision changes, and unsteadiness while standing or walking. These symptoms need to be addressed immediately with a medical doctor to ensure your lithium level is not dangerously high. In rare cases, lithium may lead to a reversible condition known as diabetes insipidus. If this occurs you would notice a significant increase in thirst and how much fluid you drink and how much you urinate. Talk to your doctor if you notice you are urinating more frequently than usual. Are There Any Risks For Taking [place] For Long Periods Of Time? Hypothyroidism (low levels of thyroid hormone) may occur with long-term lithium use. Rare kidney problems have been associated with long-term use of lithium. The risk increases with high levels of lithium. Your doctor will monitor your kidney function at routine check-ups to ensure this does not occur. Summary of Black Box Warnings [place] Toxicity [place] toxicity is closely related to lithium blood levels and can occur at doses close to therapeutic levels; lithium levels should be monitored closely when starting the medication or if individuals experience side effects of the medication. 2. Anxiety Therapy- discuss coping skills stopped Buspar 10 mg three times a day- currently off since 10/02/25 stopped Vistaril 25 mg up to 3x day PRN for anxiety and panic - currently off since 10/02/25 stopped Propranolol 10 mg daily prn for anxiety and panic - helping anxiety- currently off since 10/02/25 educated on all rx and monitor B/P 3. Nicotine use- vaping Do not smoke. Nicotine and other chemicals in cigarettes and cigars can cause lung damage. Ask your healthcare provider for information if you currently smoke and need help to quit. E-cigarettes or smokeless tobacco still contain nicotine. Talk to your healthcare provider before you use these products. education on decrease to stopping nicotine products and stop smoking hotline given 565-Quit - Yes [place] Tobacco Quitline Call a Smoking Quitline The National Cancer [place]'s Smoking Quitline, (3-834-80O-QUIT) Smokefree.gov, which connects you with your [facility]'s Quitline, (4-836-QSCNRHG) Veterans Smoking Quitline, (6-492-XBJNGRI) 4. cannabis- stopped 10/02/25 Cannabis Use Education Recommend decrease/stop cannabis use as it can negatively impact mood, motivation, anxiety, sleep, focus/concentrat ion/memory (vigilance, elasticity, processing and attention); can also contribute to development of psychosis. Recommend decrease/stop cannabis use as it may be negatively impacting mood, motivation, anxiety, sleep, focus; can also contribute to development of psychosis Cannabis/marijua na information: http__s://shreya.n ih.gov/publicati ons/drugfacts/ca nnabis-marijuana http__s://www.[employer]/ca gtksiw-mfr-zetuk tfj-cxfbaeint-by hd/ 5. Passive suicidal thoughts - passive thoughts - restart Abilify no plans or intent denies SI/HI no active thoughts NO thoughts harm to self or others discuss go to nearest ER if have active thoughts, increase passive thoughts, plans or intent saftey plan discuss 988/911 discuss support system [place] added and educated 6. ADHD symptoms Creyos scheduled discuss non stimulates related to cannabis use no rx at this time Evidence suggests an active lifestyle and achieving and maintaining an ideal body weight (20-25 BMI) is optimal for health. Experts recommend at least 30 minutes of moderate to vigorous activity per day as tolerated, 5 days a week Eat healthy, including plenty of fresh fruits and vegetables daily. Strive to have 2/3 cup of your plate to be vegetables, fruits, whole grains and beans, while 1/3 or less should be an animal product. Choose fish and chicken and limit red meat and processed meats. Assess dietary pattern for daily intake of fruits, vegetables, and whole grains, as well as red and processed meats, alcohol, and processed foods or beverages with added fats and/or sugars. Assess timing of meals and snacking habits, portion size, frequency of eating out, and use of added fats and/or sugars to foods or beverages. All survivors should be encouraged to: Follow a predominantly nutrient-rich plant-based diet, including vegetables, fruit, and whole grains. Make informed choices about food to ensure variety and adequate nutrient intake. Limit consumption of red meat such as beef, pork, or valdez to no more than 18 ounces (cooked) per week. Eat processed meats such as ham, hot dogs, deli cuts, weeks, and sausage sparingly if at all. Limit consumption of fast foods and other processed foods that are high in fat, starches, or sugars such as chips, cookies, candy bars, desserts, processed baked goods, sugary cereals, and fried foods. Limit refined sugars to <6 tsp (25 g) for a 2000-calorie daily diet and <9 tsp (38 g) for a 3000-calorie daily diet. One medium cookie has about 2 tsp of sugar; a 12-oz can of a soft drink has about 10 tsp. Track calorie intake. Self-monitoring of food and beverage intake has been shown to be an effective strategy for weight management. Prolonged periods of fasting may impair adequate caloric and nutrient intake. Drink alcohol sparingly if at all. Lower levels of alcohol consumption are associated with a lower risk of cancer. For patients desiring further recommendations for dietary guidelines: Consider referral to a registered dietitian or brush polisher. The USDA approximate food plate volumes (http_s://www.Bringrs plate.gov) are: Vegetables and fruits should comprise half the volume of food on the plate Vegetables: 30% of plate; fruits 20% of plate Whole grains: 30% of plate Protein: 20% of plate Recommended sources of dietary components: Fat: plant sources such as olive or canola oil, avocados, seeds and nuts, and fatty fish Carbohydrates: fruits, vegetables, whole grains, and legumes Protein: poultry, fish, legumes, low-fat dairy foods, and nuts While the risks and benefits of soy foods for cancer survivors have been debated for many years, most studies to date show that moderate consumption of soy foods (up to 3 servings per day) are beneficial in promoting overall health and survival, with the strongest evidence existing for the prevention of lung cancer and reduction of breast cancer recurrence. Practice portion control. Make informed food choices through routine evaluation of food labels. Incorporate physical activity, particularly strength training, to assure optimal lean body mass (SPA-1). Track weight, diet, calories, and physical activity routines (eg, journaling, mobile phone apps). Limit alcohol intake to one drink per day or less for a woman and two drinks or less per day for a man. Avoid smoking! educated on all medications, benefits, side effects and risk, and educated on depression, anxiety, and ADHD, mood d/o and educated on compliance of medications, metabolic and movement d/o education appointment is, continue therapy discussion with patient about course of treatment and patient instructions. education on serotonin syndrome SSRI/SNRI side effects discussed including but not limited to, gastric upset, nausea, vomiting, diarrhea and/or constipation, weight changes, sexual side effects including loss of libido, increased suicidal thoughts/behavio rs in children and young adults, and serotonin syndrome. Second generation antipsychotics (SGAs) have metabolic syndrome issues with weight gain, increase in prolactin, increased waist circumference, increased lipids, and increased glucose. Thus routine monitoring of weight, metabolic labs, etc. is indicated. A general rank ordering of antipsychotics that have the greatest to the least risk of metabolic effects is olanzapine, quetiapine, risperidone, ziprasidone, and aripiprazole. However, weight gain can occur with all of these drugs and considerable variability exists among patients receiving the same drug regarding the risk of metabolic effects. Anti-psychotic agents not only increase the risk of metabolic disorder, they also increase the risk of CVA, akathisia, and movement disorders including EPS or tardive dyskinesia (more common with first generation antipsychotics) and more. Medication Management and Follow-Up - Plan: - Schedule follow-up appointments every 1-3 months to monitor the patient's response to the medication regimen. - Reinforce the importance of avoiding recreational drug use due to potential neurotoxicity and interactions with prescribed medications. 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 websites http_s://www.nim h.nih.gov/health /topics/mental-h ealth-medication s http_s://www.nam i.org/About-Ment al-Illness/Treat ments/Mental-Hea lth-Medications http_s://www.nam i.org/About-Ment al-Illness/Menta w-Xodpef-Uuyhnrh ons http_s://psychce SOAMAI/deprilya sumeet/the-cogniti wq-fxjhmjcn-jg-d epression#treatm ents http__s://www.ni .nih.gov/healt h/topics/mental- health-medicatio ns http__s://www.na mi.org/About-Men camelia-Illness/Marissa tments/Mental-He alth-Medications http_s://shreya.ni h.gov/publicatio ns/drugfacts/can nabis-marijuana http_s://www.[employer]/can uuerp-knu-yoehyf fh-obrohiakr-hjl d/ 09/17/2025 Nicotine use (ICD-10 - Z72.0) Deciding About Using Medicines To Quit Smoking material was published, Quitting Tobacco: Care Instructions material was published, Stopping Smokeless Tobacco Use: Care Instructions material was published, Learning About Benefits of Quitting Smoking material was published, Stopping Smokeless Tobacco Use: Care Instructions material was published, Learning About Benefits of Quitting Smoking material was published, Quitting Tobacco: Care Instructions material was published, Deciding About Using Medicines To Quit Smoking material was published, Quitting Tobacco: Care Instructions material was published, Learning About Benefits of Quitting Smoking material was published, Deciding About Using Medicines To Quit Smoking material was published 1. Bipolar depression - improved Abilify 10 mg at evening - discuss and educated on [place] for depression, irritable and suicide prevention educated on rx refer to therapy LEXI- plan to see walk in clinic therapy today [place] 450 mg ER AT BEDTIME for Bipolar s/s and help passive thoughts- improved educated on medication. [place] education [place] use reviewed. Risks include risks of toxicity, arrhythmias, cognitive impairment, changes in muscle coordination, weight gain, thyroid and parathyroid changes, polydipsia and polyuria, alopecia, tremor and teratogenicity ( defects). Recommend avoid in females (use contraception consistently). Routine lab monitoring may be required. Patient consented to treatment. Indications: acute erlin (euphoric erlin), bipolar prophylaxis, bipolar depression treatment or augmentation, unipolar depression as augmentation with antidepressants Average dose = I,500 mg/day, target serum level 0.8 [place] [place]ony is known to reduce risk of suicide. Mechanism of action: inhibits inositol monophosphatase, interfering with 2nd messengers Nuisance Side Effects: sedation, cognitive difficulties, decreased creativity, dry mouth, tremor, increased appetite, weight gain, polydipsia, polyuria, nausea, diarrhea, acne, alopecia Serious Side Effects: Thyroid: hypothyroidism (5%), goiter (3%) Cardiac: decrease in cardiac conduction leading to sick sinus syndrome, blocks SA node Teratogenicity: Ebstein's anomaly 2 in 1,000 Renal: chronic renal insufficiency (after 10-20 years), acute renal failure, polyuria occurs in 50-70% [lithium antagonizes anti-diuretic hormone (ADH)], diabetes insipidus in 10% (treat with amiloride) Drug-drug interactions: increase in lithium: NSAIDs, JOSEPHINE inhibitors, angiotensin II antagonists If you are planning on becoming , notify your health care provider so that he/she can best manage your medications. People living with bipolar disorder who wish to become face important decisions. It is important to discuss the risks and benefits of treatment with your doctor and caregivers. [place] has been associated with an increased risk of Ebstein's anomaly, a heart valve defect. Even though data suggest that the risk of Ebstein's anomaly from first trimester use of lithium is very low, an ultrasound of the heart is recommended at 16 to 20 weeks of gestation. [place] levels should be monitored monthly in early and weekly near delivery. Do not stop taking lithium without first speaking to your health care provider. Discontinuing mood stabilizer medications during has been associated with a significant increase in symptom relapse. If an overdose occurs call your doctor or 911. You may need urgent medical care. You may also contact the poison control center at . A specific treatment to reverse the effects of lithium does not exist, but there are treatments to decrease the effects of the medication. Only a doctor can determine if you require treatment. Avoid drinking alcohol or using illegal drugs while you are taking lithium. They may decrease the benefits (e.g., worsen your condition) and increase adverse effects (e.g., sedation) of the medication. Avoid low sodium diets and dehydration because this can increase the risk of lithium toxicity. Avoid over the counter and prescription pain medications that contain nonsteroidal anti-inflammator y medications (NSAIDS) such as ibuprofen (Motrin, Advil) or naproxen (Aleve, Naprosyn) because these medications can increase the risk of toxicity from lithium. Avoid excessive intake of caffeinated beverages, such as coffee, tea, cola or energy drinks, since these may decrease levels of lithium and decrease effectiveness of the medication. Discontinuing caffeine use may increase lithium levels. Consult your health care provider before reducing or stopping caffeine use. What are the possible side effects of lithium? Common side effects Headache Nausea or vomiting Diarrhea Dizziness or drowsiness Changes in appetite Hand tremors Dry mouth Increased thirst Increased urination Thinning of hair or hair loss Acne-like rash Rare/Serious side effects Signs of lithium toxicity include severe nausea and vomiting, severe hand tremors, confusion, vision changes, and unsteadiness while standing or walking. These symptoms need to be addressed immediately with a medical doctor to ensure your lithium level is not dangerously high. In rare cases, lithium may lead to a reversible condition known as diabetes insipidus. If this occurs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 including I'll kill both of you when asked about potential infidelity, which he states he means seriously. She has established safety measures including sharing her location with six people and maintaining awareness among her support system about the threatening comments. She states that she is not willing to break up with him at this time as he checks all the boxes outside of the threatening statements. Plan: - Continue distancing from ex-partner by maintaining no contact - Practice opposite action techniques when experiencing thoughts about ex-partner by acknowledging thoughts without acting on them and reminding herself they are different people - Implement self-soothing techniques using five senses when craving physical affection that is not reciprocated, including hugging herself, wrapping in blankets, focusing on scents, and squeezing pillows - Communicate needs with current boyfriend while respecting his boundaries, particularly around physical affection and sleep preferences - Maintain established safety measures including location sharing with six people and keeping support system informed of threatening comments - Continue working on emotional presence in current relationship while allowing time for feelings to develop naturally - Call 911 if boyfriend's behavior becomes aggressive or threatening in any way. Medication non-adherence Assessment: Patient reports inconsistent adherence to mood stabilizer medication, describing forgetting doses despite setting alarms. She acknowledges feeling better and safer when taking medication consistently, noting that without it she feels like anything can piss me off today and I can snap at any minute. Patient has attempted alarm reminders but gets distracted and forgets to take medication after dismissing alarms. Plan: - Add snooze function to medication alarms to provide additional reminders - Practice self-compassion when missing doses rather than self-criticism Restlessness and sleep disturbances Assessment: Patient reports experiencing restlessness, particularly at night and when resting, describing inability to stop moving her legs and needing to be constantly active. 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 Plan: - Follow up with DARYL Murray today about concerns with restlessness Depression and low motivation Assessment: Patient reports bedrotting behavior, spending excessive time in bed on her phone with her boyfriend, both engaging in passive screen time together. She describes feeling addicted to her phone, experiencing migraines from excessive screen time, and reports running out of outdoor activities due to seasonal changes. Patient expresses concern about wasting time and desires to be more present and engaged in meaningful activities. Plan: - Implement ashish limitations starting with one hour daily restriction on most problematic applications - Establish winter self-care plan to prevent deeper depression during seasonal changes - Utilize dining table as study space by clearing storage items - Consider using library study rooms or school facilities for private study environments - Engage in screen-free activities including guitar playing, fish care, plant care, reading for pleasure, and writing for mental health documentation - Practice savoring techniques using five senses to enhance present-moment awareness - Create progress tracking system to document mental health improvements and self-care activities - Express gratitude as method to increase presence and mindfulness 08/19/2025 BEKA (generalized anxiety disorder) (ICD-10 - F41.1) Generalized Anxiety Disorder: Care Instructions material was published, Learning About Generalized Anxiety Disorder material was published, Learning About Anxiety Disorders material was published, Learning About Generalized Anxiety Disorder material was published, Generalized Anxiety Disorder: Care Instructions material was published, Learning About Anxiety Disorders material was published, Learning About Generalized Anxiety Disorder material was published, Generalized Anxiety Disorder: Care Instructions material was published, Life After Combat: Coping with an Anxiety Disorder material was published, Learning About Anxiety Disorders material was published, Managing a Health Condition and Your Anxiety About It material was published 1. Bipolar depression Abilify 10 mg at evening - discuss and educated on [place] for depression, irritable and suicide prevention educated on rx refer to therapy [facility]- plan to see walk in clinic therapy today Increase [place] 450 mg ER AT BEDTIME for Bipolar s/s and help passive thoughts educated on medication. [place] education [place] use reviewed. Risks include risks of toxicity, arrhythmias, cognitive impairment, changes in muscle coordination, weight gain, thyroid and parathyroid changes, polydipsia and polyuria, alopecia, tremor and teratogenicity ( defects). Recommend avoid in females (use contraception consistently). Routine lab monitoring may be required. Patient consented to treatment. Indications: acute erlin (euphoric erlin), bipolar prophylaxis, bipolar depression treatment or augmentation, unipolar depression as augmentation with antidepressants Average dose = I,500 mg/day, target serum level 0.8 [place] is known to reduce risk of suicide. Mechanism of action: inhibits inositol monophosphatase, interfering with 2nd messengers Nuisance Side Effects: sedation, cognitive difficulties, decreased creativity, dry mouth, tremor, increased appetite, weight gain, polydipsia, polyuria, nausea, diarrhea, acne, alopecia Serious Side Effects: Thyroid: hypothyroidism (5%), goiter (3%) Cardiac: decrease in cardiac conduction leading to sick sinus syndrome, blocks SA node Teratogenicity: Ebstein's anomaly 2 in 1,000 Renal: chronic renal insufficiency (after 10-20 years), acute renal failure, polyuria occurs in 50-70% [lithium antagonizes anti-diuretic hormone (ADH)], diabetes insipidus in 10% (treat with amiloride) Drug-drug interactions: increase in lithium: NSAIDs, JOSEPHINE inhibitors, angiotensin II antagonists If you are planning on becoming , notify your health care provider so that he/she can best manage your medications. People living with bipolar disorder who wish to become face important decisions. It is important to discuss the risks and benefits of treatment with your doctor and caregivers. [place] has been associated with an increased risk of Ebstein's anomaly, a heart valve defect. Even though data suggest that the risk of Ebstein's anomaly from first trimester use of lithium is very low, an ultrasound of the heart is recommended at 16 to 20 weeks of gestation. [place] levels should be monitored monthly in early and weekly near delivery. Do not stop taking lithium without first speaking to your health care provider. Discontinuing mood stabilizer medications during has been associated with a significant increase in symptom relapse. If an overdose occurs call your doctor or 911. You may need urgent medical care. You may also contact the poison control center at . A specific treatment to reverse the effects of lithium does not exist, but there are treatments to decrease the effects of the medication. Only a doctor can determine if you require treatment. Avoid drinking alcohol or using illegal drugs while you are taking lithium. They may decrease the benefits (e.g., worsen your condition) and increase adverse effects (e.g., sedation) of the medication. Avoid low sodium diets and dehydration because this can increase the risk of lithium toxicity. Avoid over the counter and prescription pain medications that contain nonsteroidal anti-inflammator y medications (NSAIDS) such as ibuprofen (Motrin, Advil) or naproxen (Aleve, Naprosyn) because these medications can increase the risk of toxicity from lithium. Avoid excessive intake of caffeinated beverages, such as coffee, tea, cola or energy drinks, since these may decrease levels of lithium and decrease effectiveness of the medication. Discontinuing caffeine use may increase lithium levels. Consult your health care provider before reducing or stopping caffeine use. What are the possible side effects of lithium? Common side effects Headache Nausea or vomiting Diarrhea Dizziness or drowsiness Changes in appetite Hand tremors Dry mouth Increased thirst Increased urination Thinning of hair or hair loss Acne-like rash Rare/Serious side effects Signs of lithium toxicity include severe nausea and vomiting, severe hand tremors, confusion, vision changes, and unsteadiness while standing or walking. These symptoms need to be addressed immediately with a medical doctor to ensure your lithium level is not dangerously high. In rare cases, lithium may lead to a reversible condition known as diabetes insipidus. If this occurs you would notice a significant increase in thirst and how much fluid you drink and how much you urinate. Talk to your doctor if you notice you are urinating more frequently than usual. Are There Any Risks For Taking [place] For Long Periods Of Time? Hypothyroidism (low levels of thyroid hormone) may occur with long-term lithium use. Rare kidney problems have been associated with long-term use of lithium. The risk increases with high levels of lithium. Your doctor will monitor your kidney function at routine check-ups to ensure this does not occur. Summary of Black Box Warnings [place] Toxicity [place] toxicity is closely related to lithium blood levels and can occur at doses close to therapeutic levels; lithium levels should be monitored closely when starting the medication or if individuals experience side effects of the medication. 2. Anxiety Therapy- see walk in clinic [facility] discuss coping skills Buspar 10 mg three times a day Vistaril 25 mg up to 3x day PRN for anxiety and panic Propranolol 10 mg daily prn for anxiety and panic - helping anxiety educated on all rx and monitor B/P 3. Nicotine use- vaping Do not smoke. Nicotine and other chemicals in cigarettes and cigars can cause lung damage. Ask your healthcare provider for information if you currently smoke and need help to quit. E-cigarettes or smokeless tobacco still contain nicotine. Talk to your healthcare provider before you use these products. education on decrease to stopping nicotine products and stop smoking hotline given Quit - Yes [place] Tobacco Quitline Call a Smoking Quitline The [employer] [place]'s Smoking Quitline, (2-804-11Q-QUIT) Smokefree.gov, which connects you with your State's Quitline, (4-557-LWJZDAE) Veterans Smoking Quitline, (0-741-WJBLTMO) 4. cannabis Cannabis Use Education Recommend decrease/stop cannabis use as it can negatively impact mood, motivation, anxiety, sleep, focus/concentrat ion/memory (vigilance, elasticity, processing and attention); can also contribute to development of psychosis. Recommend decrease/stop cannabis use as it may be negatively impacting mood, motivation, anxiety, sleep, focus; can also contribute to development of psychosis Cannabis/marijua na information: http__s://shreya.n ih.gov/publicati ons/drugfacts/ca nnabis-marijuana http__s://www.[employer]/ca veulzz-ukq-mnius bqz-ytbzxveps-pc hd/ 5. Passive suicidal thoughts no plans or intent denies SI/HI no active thoughts NO thoughts harm to self or others discuss go to nearest ER if have active thoughts, increase passive thoughts, plans or intent saftey plan discuss [phone] discuss support system [place] added and educated Evidence suggests an active lifestyle and achieving and maintaining an ideal body weight (20-25 BMI) is optimal for health. Experts recommend at least 30 minutes of moderate to vigorous activity per day as tolerated, 5 days a week Eat healthy, including plenty of fresh fruits and vegetables daily. Strive to have 2/3 cup of your plate to be vegetables, fruits, whole grains and beans, while 1/3 or less should be an animal product. Choose fish and chicken and limit red meat and processed meats. Assess dietary pattern for daily intake of fruits, vegetables, and whole grains, as well as red and processed meats, alcohol, and processed foods or beverages with added fats and/or sugars. Assess timing of meals and snacking habits, portion size, frequency of eating out, and use of added fats and/or sugars to foods or beverages. All survivors should be encouraged to: Follow a predominantly nutrient-rich plant-based diet, including vegetables, fruit, and whole grains. Make informed choices about food to ensure variety and adequate nutrient intake. Limit consumption of red meat such as beef, pork, or valdez to no more than 18 ounces (cooked) per week. Eat processed meats such as ham, hot dogs, deli cuts, weeks, and sausage sparingly if at all. Limit consumption of fast foods and other processed foods that are high in fat, starches, or sugars such as chips, cookies, candy bars, desserts, processed baked goods, sugary cereals, and fried foods. Limit refined sugars to <6 tsp (25 g) for a 2000-calorie daily diet and <9 tsp (38 g) for a 3000-calorie daily diet. One medium cookie has about 2 tsp of sugar; a 12-oz can of a soft drink has about 10 tsp. Track calorie intake. Self-monitoring of food and beverage intake has been shown to be an effective strategy for weight management. Prolonged periods of fasting may impair adequate caloric and nutrient intake. Drink alcohol sparingly if at all. Lower levels of alcohol consumption are associated with a lower risk of cancer. For patients desiring further recommendations for dietary guidelines: Consider referral to a registered dietitian or brush polisher. The USDA approximate food plate volumes (http_s://www.Bringrs plate.gov) are: Vegetables and fruits should comprise half the volume of food on the plate Vegetables: 30% of plate; fruits 20% of plate Whole grains: 30% of plate Protein: 20% of plate Recommended sources of dietary components: Fat: plant sources such as olive or canola oil, avocados, seeds and nuts, and fatty fish Carbohydrates: fruits, vegetables, whole grains, and legumes Protein: poultry, fish, legumes, low-fat dairy foods, and nuts While the risks and benefits of soy foods for cancer survivors have been debated for many years, most studies to date show that moderate consumption of soy foods (up to 3 servings per day) are beneficial in promoting overall health and survival, with the strongest evidence existing for the prevention of lung cancer and reduction of breast cancer recurrence. Practice portion control. Make informed food choices through routine evaluation of food labels. Incorporate physical activity, particularly strength training, to assure optimal lean body mass (SPA-1). Track weight, diet, calories, and physical activity routines (eg, journaling, mobile phone apps). Limit alcohol intake to one drink per day or less for a woman and two drinks or less per day for a man. Avoid smoking! educated on all medications, benefits, side effects and risk, and educated on depression, anxiety, and ADHD, mood d/o and educated on compliance of medications, metabolic and movement d/o education appointment is, continue therapy discussion with patient about course of treatment and patient instructions. education on serotonin syndrome SSRI/SNRI side effects discussed including but not limited to, gastric upset, nausea, vomiting, diarrhea and/or constipation, weight changes, sexual side effects including loss of libido, increased suicidal thoughts/behavio rs in children and young adults, and serotonin syndrome. Second generation antipsychotics (SGAs) have metabolic syndrome issues with weight gain, increase in prolactin, increased waist circumference, increased lipids, and increased glucose. Thus routine monitoring of weight, metabolic labs, etc. is indicated. A general rank ordering of antipsychotics that have the greatest to the least risk of metabolic effects is olanzapine, quetiapine, risperidone, ziprasidone, and aripiprazole. However, weight gain can occur with all of these drugs and considerable variability exists among patients receiving the same drug regarding the risk of metabolic effects. Anti-psychotic agents not only increase the risk of metabolic disorder, they also increase the risk of CVA, akathisia, and movement disorders including EPS or tardive dyskinesia (more common with first generation antipsychotics) and more. Medication Management and Follow-Up - Plan: - Schedule follow-up appointments every 1-3 months to monitor the patient's response to the medication regimen. - Reinforce the importance of avoiding recreational drug use due to potential neurotoxicity and interactions with prescribed medications. 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 websites http_s://www.nim h.nih.gov/health /topics/mental-h ealth-medication s http_s://www.nam i.org/About-Ment al-Illness/Treat ments/Mental-Hea lth-Medications http_s://www.nam i.org/About-Ment al-Illness/Menta b-Uaqoit-Wdfwldj ons http_s://psychce ntrTink.com/depres sumeet/the-cogniti oa-inckdbag-hl-d epression#treatm ents http__s://www.ni .nih.gov/healt h/topics/mental- health-medicatio ns http__s://www.na mi.org/About-Men camelia-Illness/Marissa tments/Mental-He alth-Medications http_s://shreya.ni h.gov/publicatio ns/drugfacts/can nabis-marijuana http_s://www.[employer]/can lhlzy-lam-dgvgkw vo-ihvivmwqp-vxs 07/02/2025 Bipolar 1 disorder (ICD-10 - F31.9) Bipolar Disorder: Care Instructions material was published, Learning About How to Get Help During a Mental Health Crisis material was published, Learning About Movement Disorders From Antipsychotic Medicines material was published, Learning About Mood Disorders material was published, Bipolar Disorder: Care Instructions material was published, Learning About How to Get Help During a Mental Health Crisis material was published, Learning About Movement Disorders From Antipsychotic Medicines material was published, Learning About Mood Disorders material was published 1. Bipolar - increase depression Increase Abilify 10 mg at evening - educated on rx refer to therapy [facility] 2. Anxiety Therapy- see walk in clinic [facility] discuss coping skills discuss and educated on increase Buspar 10 mg three times a day Add Vistaril 25 mg up to 3x day PRN for anxiety and panic 3. Nicotine use- vaping Do not smoke. Nicotine and other chemicals in cigarettes and cigars can cause lung damage. Ask your healthcare provider for information if you currently smoke and need help to quit. E-cigarettes or smokeless tobacco still contain nicotine. Talk to your healthcare provider before you use these products. education on decrease to stopping nicotine products and stop smoking hotline given 340-Quit - Yes [place] Tobacco Quitline Call a Smoking Quitline The [employer] [place]'s Smoking Quitline, (3-543-82B-QUIT) Smokefree.gov, which connects you with your State's Quitline, (9-611-WBJCPYZ) Veterans Smoking Quitline, (4-613-LOHSDPI) 4. cannabis Cannabis Use Education Recommend decrease/stop cannabis use as it can negatively impact mood, motivation, anxiety, sleep, focus/concentrat ion/memory (vigilance, elasticity, processing and attention); can also contribute to development of psychosis. Recommend decrease/stop cannabis use as it may be negatively impacting mood, motivation, anxiety, sleep, focus; can also contribute to development of psychosis Cannabis/marijua na information: http__s://shreya.n ih.gov/publicati ons/drugfacts/[place] nnabis-marijuana http__s://www.[employer]/ca ohkwgx-gsu-pausn ymh-rbgcqqwgm-vf hd/ Evidence suggests an active lifestyle and achieving and maintaining an ideal body weight (20-25 BMI) is optimal for health. Experts recommend at least 30 minutes of moderate to vigorous activity per day as tolerated, 5 days a week Eat healthy, including plenty of fresh fruits and vegetables daily. Strive to have 2/3 cup of your plate to be vegetables, fruits, whole grains and beans, while 1/3 or less should be an animal product. Choose fish and chicken and limit red meat and processed meats. Assess dietary pattern for daily intake of fruits, vegetables, and whole grains, as well as red and processed meats, alcohol, and processed foods or beverages with added fats and/or sugars. Assess timing of meals and snacking habits, portion size, frequency of eating out, and use of added fats and/or sugars to foods or beverages. All survivors should be encouraged to: Follow a predominantly nutrient-rich plant-based diet, including vegetables, fruit, and whole grains. Make informed choices about food to ensure variety and adequate nutrient intake. Limit consumption of red meat such as beef, pork, or valdez to no more than 18 ounces (cooked) per week. Eat processed meats such as ham, hot dogs, deli cuts, weeks, and sausage sparingly if at all. Limit consumption of fast foods and other processed foods that are high in fat, starches, or sugars such as chips, cookies, candy bars, desserts, processed baked goods, sugary cereals, and fried foods. Limit refined sugars to <6 tsp (25 g) for a 2000-calorie daily diet and <9 tsp (38 g) for a 3000-calorie daily diet. One medium cookie has about 2 tsp of sugar; a 12-oz can of a soft drink has about 10 tsp. Track calorie intake. Self-monitoring of food and beverage intake has been shown to be an effective strategy for weight management. Prolonged periods of fasting may impair adequate caloric and nutrient intake. Drink alcohol sparingly if at all. Lower levels of alcohol consumption are associated with a lower risk of cancer. For patients desiring further recommendations for dietary guidelines: Consider referral to a registered dietitian or brush polisher. The USDA approximate food plate volumes (http_s://www.Bringrs plate.gov) are: Vegetables and fruits should comprise half the volume of food on the plate Vegetables: 30% of plate; fruits 20% of plate Whole grains: 30% of plate Protein: 20% of plate Recommended sources of dietary components: Fat: plant sources such as olive or canola oil, avocados, seeds and nuts, and fatty fish Carbohydrates: fruits, vegetables, whole grains, and legumes Protein: poultry, fish, legumes, low-fat dairy foods, and nuts While the risks and benefits of soy foods for cancer survivors have been debated for many years, most studies to date show that moderate consumption of soy foods (up to 3 servings per day) are beneficial in promoting overall health and survival, with the strongest evidence existing for the prevention of lung cancer and reduction of breast cancer recurrence. Practice portion control. Make informed food choices through routine evaluation of food labels. Incorporate physical activity, particularly strength training, to assure optimal lean body mass (SPA-1). Track weight, diet, calories, and physical activity routines (eg, journaling, mobile phone apps). Limit alcohol intake to one drink per day or less for a woman and two drinks or less per day for a man. Avoid smoking! educated on all medications, benefits, side effects and risk, and educated on depression, anxiety, and ADHD, mood d/o and educated on compliance of medications, metabolic and movement d/o education appointment is, continue therapy discussion with patient about course of treatment and patient instructions. education on serotonin syndrome SSRI/SNRI side effects discussed including but not limited to, gastric upset, nausea, vomiting, diarrhea and/or constipation, weight changes, sexual side effects including loss of libido, increased suicidal thoughts/behavio rs in children and young adults, and serotonin syndrome. Second generation antipsychotics (SGAs) have metabolic syndrome issues with weight gain, increase in prolactin, increased waist circumference, increased lipids, and increased glucose. Thus routine monitoring of weight, metabolic labs, etc. is indicated. A general rank ordering of antipsychotics that have the greatest to the least risk of metabolic effects is olanzapine, quetiapine, risperidone, ziprasidone, and aripiprazole. However, weight gain can occur with all of these drugs and considerable variability exists among patients receiving the same drug regarding the risk of metabolic effects. Anti-psychotic agents not only increase the risk of metabolic disorder, they also increase the risk of CVA, akathisia, and movement disorders including EPS or tardive dyskinesia (more common with first generation antipsychotics) and more. Medication Management and Follow-Up - Plan: - Schedule follow-up appointments every 1-3 months to monitor the patient's response to the medication regimen. - Reinforce the importance of avoiding recreational drug use due to potential neurotoxicity and interactions with prescribed medications. 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 websites http_s://www.nim h.nih.gov/health /topics/mental-h ealth-medication s http_s://www.nam i.org/About-Ment al-Illness/Treat ments/Mental-Hea lth-Medications http_s://www.nam i.org/About-Ment al-Illness/Menta j-Gfmmeg-Inkiwyl ons http_s://[employer]/deprilya sumeet/the-cogniti tl-oxkhgiun-ev-d epression#treatm ents http__s://www.ni .nih.gov/healt h/topics/mental- health-medicatio ns http__s://www.na mi.org/About-Men camelia-Illness/Marissa tments/Mental-He alth-Medications http_s://shreya.ni h.gov/publicatio ns/drugfacts/can nabis-marijuana http_s://www.[employer]/can vqvnt-imt-nhrevm qz-fhwcqlilg-tle d/ 07/02/2025 Nicotine use (ICD-10 - Z72.0) Deciding About Using Medicines To Quit Smoking material was published, Quitting Tobacco: Care Instructions material was published, Stopping Smokeless Tobacco Use: Care Instructions material was published, Learning About Benefits of Quitting Smoking material was published, Stopping Smokeless Tobacco Use: Care Instructions material was published, Learning About Benefits of Quitting Smoking material was published, Quitting Tobacco: Care Instructions material was published, Deciding About Using Medicines To Quit Smoking material was published 1. Bipolar - increase depression Increase Abilify 10 mg at evening - educated on rx refer to therapy [facility] 2. Anxiety Therapy- see walk in clinic [facility] discuss coping skills discuss and educated on increase Buspar 10 mg three times a day Add Vistaril 25 mg up to 3x day PRN for anxiety and panic 3. Nicotine use- vaping Do not smoke. Nicotine and other chemicals in cigarettes and cigars can cause lung damage. Ask your healthcare provider for information if you currently smoke and need help to quit. E-cigarettes or smokeless tobacco still contain nicotine. Talk to your healthcare provider before you use these products. education on decrease to stopping nicotine products and stop smoking hotline given 749-Quit - Yes [place] Tobacco Quitline Call a Smoking Quitline The National [employer] [place]'s Smoking Quitline, (1-073-22L-QUIT) Smokefree.gov, which connects you with your State's Quitline, (6-368-JPRJQWO) Veterans Smoking Quitline, (6-490-AXNMFUD) 4. cannabis Cannabis Use Education Recommend decrease/stop cannabis use as it can negatively impact mood, motivation, anxiety, sleep, focus/concentrat ion/memory (vigilance, elasticity, processing and attention); can also contribute to development of psychosis. Recommend decrease/stop cannabis use as it may be negatively impacting mood, motivation, anxiety, sleep, focus; can also contribute to development of psychosis Cannabis/marijua na information: http__s://shreya.n ih.gov/publicati ons/drugfacts/ca nnabis-marijuana http__s://www.[employer]/ca qcsxsv-uea-jzjrx fcy-yjqzxzgbg-pg hd/ Evidence suggests an active lifestyle and achieving and maintaining an ideal body weight (20-25 BMI) is optimal for health. Experts recommend at least 30 minutes of moderate to vigorous activity per day as tolerated, 5 days a week Eat healthy, including plenty of fresh fruits and vegetables daily. Strive to have 2/3 cup of your plate to be vegetables, fruits, whole grains and beans, while 1/3 or less should be an animal product. Choose fish and chicken and limit red meat and processed meats. Assess dietary pattern for daily intake of fruits, vegetables, and whole grains, as well as red and processed meats, alcohol, and processed foods or beverages with added fats and/or sugars. Assess timing of meals and snacking habits, portion size, frequency of eating out, and use of added fats and/or sugars to foods or beverages. All survivors should be encouraged to: Follow a predominantly nutrient-rich plant-based diet, including vegetables, fruit, and whole grains. Make informed choices about food to ensure variety and adequate nutrient intake. Limit consumption of red meat such as beef, pork, or valdez to no more than 18 ounces (cooked) per week. Eat processed meats such as ham, hot dogs, deli cuts, weeks, and sausage sparingly if at all. Limit consumption of fast foods and other processed foods that are high in fat, starches, or sugars such as chips, cookies, candy bars, desserts, processed baked goods, sugary cereals, and fried foods. Limit refined sugars to <6 tsp (25 g) for a 2000-calorie daily diet and <9 tsp (38 g) for a 3000-calorie daily diet. One medium cookie has about 2 tsp of sugar; a 12-oz can of a soft drink has about 10 tsp. Track calorie intake. Self-monitoring of food and beverage intake has been shown to be an effective strategy for weight management. Prolonged periods of fasting may impair adequate caloric and nutrient intake. Drink alcohol sparingly if at all. Lower levels of alcohol consumption are associated with a lower risk of cancer. For patients desiring further recommendations for dietary guidelines: Consider referral to a registered dietitian or brush polisher. The USDA approximate food plate volumes (http_s://www.Bringrs plate.gov) are: Vegetables and fruits should comprise half the volume of food on the plate Vegetables: 30% of plate; fruits 20% of plate Whole grains: 30% of plate Protein: 20% of plate Recommended sources of dietary components: Fat: plant sources such as olive or canola oil, avocados, seeds and nuts, and fatty fish Carbohydrates: fruits, vegetables, whole grains, and legumes Protein: poultry, fish, legumes, low-fat dairy foods, and nuts While the risks and benefits of soy foods for cancer survivors have been debated for many years, most studies to date show that moderate consumption of soy foods (up to 3 servings per day) are beneficial in promoting overall health and survival, with the strongest evidence existing for the prevention of lung cancer and reduction of breast cancer recurrence. Practice portion control. Make informed food choices through routine evaluation of food labels. Incorporate physical activity, particularly strength training, to assure optimal lean body mass (SPA-1). Track weight, diet, calories, and physical activity routines (eg, journaling, mobile phone apps). Limit alcohol intake to one drink per day or less for a woman and two drinks or less per day for a man. Avoid smoking! educated on all medications, benefits, side effects and risk, and educated on depression, anxiety, and ADHD, mood d/o and educated on compliance of medications, metabolic and movement d/o education appointment is, continue therapy discussion with patient about course of treatment and patient instructions. education on serotonin syndrome SSRI/SNRI side effects discussed including but not limited to, gastric upset, nausea, vomiting, diarrhea and/or constipation, weight changes, sexual side effects including loss of libido, increased suicidal thoughts/behavio rs in children and young adults, and serotonin syndrome. Second generation antipsychotics (SGAs) have metabolic syndrome issues with weight gain, increase in prolactin, increased waist circumference, increased lipids, and increased glucose. Thus routine monitoring of weight, metabolic labs, etc. is indicated. A general rank ordering of antipsychotics that have the greatest to the least risk of metabolic effects is olanzapine, quetiapine, risperidone, ziprasidone, and aripiprazole. However, weight gain can occur with all of these drugs and considerable variability exists among patients receiving the same drug regarding the risk of metabolic effects. Anti-psychotic agents not only increase the risk of metabolic disorder, they also increase the risk of CVA, akathisia, and movement disorders including EPS or tardive dyskinesia (more common with first generation antipsychotics) and more. Medication Management and Follow-Up - Plan: - Schedule follow-up appointments every 1-3 months to monitor the patient's response to the medication regimen. - Reinforce the importance of avoiding recreational drug use due to potential neurotoxicity and interactions with prescribed medications. 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 websites http_s://www.nim h.nih.gov/health /topics/mental-h ealth-medication s http_s://www.nam i.org/About-Ment al-Illness/Treat ments/Mental-Hea lth-Medications http_s://www.nam i.org/About-Ment al-Illness/Menta m-Lkosxa-Mqdwzuw ons http_s://[employer]/depres sumeet/the-cogniti ez-xhqwrwlx-dh-d epression#treatm ents http__s://www.ni .nih.gov/healt h/topics/mental- health-medicatio ns http__s://www.na mi.org/About-Men camelia-Illness/Marissa tments/Mental-He alth-Medications http_s://shreya.ni h.gov/publicatio ns/drugfacts/can nabis-marijuana http_s://www.[employer]/can fhcgg-sgs-rqceer yg-huhfkwxws-dgq d/ 07/30/2025 BEKA (generalized anxiety disorder) (ICD-10 - F41.1) Generalized Anxiety Disorder: Care Instructions material was published, Learning About Generalized Anxiety Disorder material was published, Learning About Anxiety Disorders material was published, Learning About Generalized Anxiety Disorder material was published, Generalized Anxiety Disorder: Care Instructions material was published, Learning About Anxiety Disorders material was published, Learning About Generalized Anxiety Disorder material was published, Generalized Anxiety Disorder: Care Instructions material was published, Life After Combat: Coping with an Anxiety Disorder material was published, Learning About Anxiety Disorders material was published, Managing a Health Condition and Your Anxiety About It material was published 1. Bipolar depression Abilify 10 mg at evening - discuss and educated on [place] for depression, irritable and suicide prevention educated on rx refer to therapy [facility] Start [place] 300 mg ER AT BEDTIME educated on medication. [place] education [place] use reviewed. Risks include risks of toxicity, arrhythmias, cognitive impairment, changes in muscle coordination, weight gain, thyroid and parathyroid changes, polydipsia and polyuria, alopecia, tremor and teratogenicity ( defects). Recommend avoid in females (use contraception consistently). Routine lab monitoring may be required. Patient consented to treatment. Indications: acute erlin (euphoric erlin), bipolar prophylaxis, bipolar depression treatment or augmentation, unipolar depression as augmentation with antidepressants Average dose = I,500 mg/day, target serum level 0.8 [place] is known to reduce risk of suicide. Mechanism of action: inhibits inositol monophosphatase, interfering with 2nd messengers Nuisance Side Effects: sedation, cognitive difficulties, decreased creativity, dry mouth, tremor, increased appetite, weight gain, polydipsia, polyuria, nausea, diarrhea, acne, alopecia Serious Side Effects: Thyroid: hypothyroidism (5%), goiter (3%) Cardiac: decrease in cardiac conduction leading to sick sinus syndrome, blocks SA node Teratogenicity: Ebstein's anomaly 2 in 1,000 Renal: chronic renal insufficiency (after 10-20 years), acute renal failure, polyuria occurs in 50-70% [lithium antagonizes anti-diuretic hormone (ADH)], diabetes insipidus in 10% (treat with amiloride) Drug-drug interactions: increase in lithium: NSAIDs, JOSEPHINE inhibitors, angiotensin II antagonists If you are planning on becoming , notify your health care provider so that he/she can best manage your medications. People living with bipolar disorder who wish to become face important decisions. It is important to discuss the risks and benefits of treatment with your doctor and caregivers. [place] has been associated with an increased risk of Ebstein's anomaly, a heart valve defect. Even though data suggest that the risk of Ebstein's anomaly from first trimester use of lithium is very low, an ultrasound of the heart is recommended at 16 to 20 weeks of gestation. [place] levels should be monitored monthly in early and weekly near delivery. Do not stop taking lithium without first speaking to your health care provider. Discontinuing mood stabilizer medications during has been associated with a significant increase in symptom relapse. If an overdose occurs call your doctor or 911. You may need urgent medical care. You may also contact the poison control center at . A specific treatment to reverse the effects of lithium does not exist, but there are treatments to decrease the effects of the medication. Only a doctor can determine if you require treatment. Avoid drinking alcohol or using illegal drugs while you are taking lithium. They may decrease the benefits (e.g., worsen your condition) and increase adverse effects (e.g., sedation) of the medication. Avoid low sodium diets and dehydration because this can increase the risk of lithium toxicity. Avoid over the counter and prescription pain medications that contain nonsteroidal anti-inflammator y medications (NSAIDS) such as ibuprofen (Motrin, Advil) or naproxen (Aleve, Naprosyn) because these medications can increase the risk of toxicity from lithium. Avoid excessive intake of caffeinated beverages, such as coffee, tea, cola or energy drinks, since these may decrease levels of lithium and decrease effectiveness of the medication. Discontinuing caffeine use may increase lithium levels. Consult your health care provider before reducing or stopping caffeine use. What are the possible side effects of lithium? Common side effects Headache Nausea or vomiting Diarrhea Dizziness or drowsiness Changes in appetite Hand tremors Dry mouth Increased thirst Increased urination Thinning of hair or hair loss Acne-like rash Rare/Serious side effects Signs of lithium toxicity include severe nausea and vomiting, severe hand tremors, confusion, vision changes, and unsteadiness while standing or walking. These symptoms need to be addressed immediately with a medical doctor to ensure your lithium level is not dangerously high. In rare cases, lithium may lead to a reversible condition known as diabetes insipidus. If this occurs you would notice a significant increase in thirst and how much fluid you drink and how much you urinate. Talk to your doctor if you notice you are urinating more frequently than usual. Are There Any Risks For Taking [place] For Long Periods Of Time? Hypothyroidism (low levels of thyroid hormone) may occur with long-term lithium use. Rare kidney problems have been associated with long-term use of lithium. The risk increases with high levels of lithium. Your doctor will monitor your kidney function at routine check-ups to ensure this does not occur. Summary of Black Box Warnings [place] Toxicity [place] toxicity is closely related to lithium blood levels and can occur at doses close to therapeutic levels; lithium levels should be monitored closely when starting the medication or if individuals experience side effects of the medication. 2. Anxiety Therapy- see walk in clinic [facility] discuss coping skills Buspar 10 mg three times a day Vistaril 25 mg up to 3x day PRN for anxiety and panic Start Propranolol 10 mg daily prn for anxiety and panic educated on all rx and monitor B/P 3. Nicotine use- vaping Do not smoke. Nicotine and other chemicals in cigarettes and cigars can cause lung damage. Ask your healthcare provider for information if you currently smoke and need help to quit. E-cigarettes or smokeless tobacco still contain nicotine. Talk to your healthcare provider before you use these products. education on decrease to stopping nicotine products and stop smoking hotline given -Quit - Yes [place] Tobacco Quitline Call a Smoking Quitline The National Cancer [place]'s Smoking Quitline, (5-652-04G-QUIT) Smokefree.gov, which connects you with your State's Quitline, (7-317-UCOYQWA) Veterans Smoking Quitline, (9-857-GIQVUHW) 4. cannabis Cannabis Use Education Recommend decrease/stop cannabis use as it can negatively impact mood, motivation, anxiety, sleep, focus/concentrat ion/memory (vigilance, elasticity, processing and attention); can also contribute to development of psychosis. Recommend decrease/stop cannabis use as it may be negatively impacting mood, motivation, anxiety, sleep, focus; can also contribute to development of psychosis Cannabis/marijua na information: http__s://shreya.n ih.gov/publicati ons/drugfacts/ca nnabis-marijuana http__s://www.[employer]/ca teyqku-nlp-bdisw slc-ueqdhorox-av hd/ 5. Passive suicidal thoughts no plans or intent denies SI/HI no active thoughts NO thoughts harm to self or others discuss go to nearest ER if have active thoughts, increase passive thoughts, plans or intent saftey plan discuss [phone] discuss support system [place] added and educated Evidence suggests an active lifestyle and achieving and maintaining an ideal body weight (20-25 BMI) is optimal for health. Experts recommend at least 30 minutes of moderate to vigorous activity per day as tolerated, 5 days a week Eat healthy, including plenty of fresh fruits and vegetables daily. Strive to have 2/3 cup of your plate to be vegetables, fruits, whole grains and beans, while 1/3 or less should be an animal product. Choose fish and chicken and limit red meat and processed meats. Assess dietary pattern for daily intake of fruits, vegetables, and whole grains, as well as red and processed meats, alcohol, and processed foods or beverages with added fats and/or sugars. Assess timing of meals and snacking habits, portion size, frequency of eating out, and use of added fats and/or sugars to foods or beverages. All survivors should be encouraged to: Follow a predominantly nutrient-rich plant-based diet, including vegetables, fruit, and whole grains. Make informed choices about food to ensure variety and adequate nutrient intake. Limit consumption of red meat such as beef, pork, or valdez to no more than 18 ounces (cooked) per week. Eat processed meats such as ham, hot dogs, deli cuts, weeks, and sausage sparingly if at all. Limit consumption of fast foods and other processed foods that are high in fat, starches, or sugars such as chips, cookies, candy bars, desserts, processed baked goods, sugary cereals, and fried foods. Limit refined sugars to <6 tsp (25 g) for a 2000-calorie daily diet and <9 tsp (38 g) for a 3000-calorie daily diet. One medium cookie has about 2 tsp of sugar; a 12-oz can of a soft drink has about 10 tsp. Track calorie intake. Self-monitoring of food and beverage intake has been shown to be an effective strategy for weight management. Prolonged periods of fasting may impair adequate caloric and nutrient intake. Drink alcohol sparingly if at all. Lower levels of alcohol consumption are associated with a lower risk of cancer. For patients desiring further recommendations for dietary guidelines: Consider referral to a registered dietitian or brush polisher. The USDA approximate food plate volumes (http_s://www.Bringrs plate.gov) are: Vegetables and fruits should comprise half the volume of food on the plate Vegetables: 30% of plate; fruits 20% of plate Whole grains: 30% of plate Protein: 20% of plate Recommended sources of dietary components: Fat: plant sources such as olive or canola oil, avocados, seeds and nuts, and fatty fish Carbohydrates: fruits, vegetables, whole grains, and legumes Protein: poultry, fish, legumes, low-fat dairy foods, and nuts While the risks and benefits of soy foods for cancer survivors have been debated for many years, most studies to date show that moderate consumption of soy foods (up to 3 servings per day) are beneficial in promoting overall health and survival, with the strongest evidence existing for the prevention of lung cancer and reduction of breast cancer recurrence. Practice portion control. Make informed food choices through routine evaluation of food labels. Incorporate physical activity, particularly strength training, to assure optimal lean body mass (SPA-1). Track weight, diet, calories, and physical activity routines (eg, journaling, mobile phone apps). Limit alcohol intake to one drink per day or less for a woman and two drinks or less per day for a man. Avoid smoking! educated on all medications, benefits, side effects and risk, and educated on depression, anxiety, and ADHD, mood d/o and educated on compliance of medications, metabolic and movement d/o education appointment is, continue therapy discussion with patient about course of treatment and patient instructions. education on serotonin syndrome SSRI/SNRI side effects discussed including but not limited to, gastric upset, nausea, vomiting, diarrhea and/or constipation, weight changes, sexual side effects including loss of libido, increased suicidal thoughts/behavio rs in children and young adults, and serotonin syndrome. Second generation antipsychotics (SGAs) have metabolic syndrome issues with weight gain, increase in prolactin, increased waist circumference, increased lipids, and increased glucose. Thus routine monitoring of weight, metabolic labs, etc. is indicated. A general rank ordering of antipsychotics that have the greatest to the least risk of metabolic effects is olanzapine, quetiapine, risperidone, ziprasidone, and aripiprazole. However, weight gain can occur with all of these drugs and considerable variability exists among patients receiving the same drug regarding the risk of metabolic effects. Anti-psychotic agents not only increase the risk of metabolic disorder, they also increase the risk of CVA, akathisia, and movement disorders including EPS or tardive dyskinesia (more common with first generation antipsychotics) and more. Medication Management and Follow-Up - Plan: - Schedule follow-up appointments every 1-3 months to monitor the patient's response to the medication regimen. - Reinforce the importance of avoiding recreational drug use due to potential neurotoxicity and interactions with prescribed medications. 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 impacting mood, motivation, anxiety, sleep, focus; can also contribute to development of psychosis Cannabis/marijua na information: http__s://shreya.n ih.gov/publicati ons/drugfacts/[place] nnabis-marijuana http__s://www.Given.to/ca cmoexy-mvw-boegm cor-nlgasjgvc-gu hd/ 5. Passive suicidal thoughts no plans or intent denies SI/HI no active thoughts NO thoughts harm to self or others discuss go to nearest ER if have active thoughts, increase passive thoughts, plans or intent saftey plan discuss [phone]/911 discuss support system [place] added and educated Evidence suggests an active lifestyle and achieving and maintaining an ideal body weight (20-25 BMI) is optimal for health. Experts recommend at least 30 minutes of moderate to vigorous activity per day as tolerated, 5 days a week Eat healthy, including plenty of fresh fruits and vegetables daily. Strive to have 2/3 cup of your plate to be vegetables, fruits, whole grains and beans, while 1/3 or less should be an animal product. Choose fish and chicken and limit red meat and processed meats. Assess dietary pattern for daily intake of fruits, vegetables, and whole grains, as well as red and processed meats, alcohol, and processed foods or beverages with added fats and/or sugars. Assess timing of meals and snacking habits, portion size, frequency of eating out, and use of added fats and/or sugars to foods or beverages. All survivors should be encouraged to: Follow a predominantly nutrient-rich plant-based diet, including vegetables, fruit, and whole grains. Make informed choices about food to ensure variety and adequate nutrient intake. Limit consumption of red meat such as beef, pork, or valdez to no more than 18 ounces (cooked) per week. Eat processed meats such as ham, hot dogs, deli cuts, weeks, and sausage sparingly if at all. Limit consumption of fast foods and other processed foods that are high in fat, starches, or sugars such as chips, cookies, candy bars, desserts, processed baked goods, sugary cereals, and fried foods. Limit refined sugars to <6 tsp (25 g) for a 2000-calorie daily diet and <9 tsp (38 g) for a 3000-calorie daily diet. One medium cookie has about 2 tsp of sugar; a 12-oz can of a soft drink has about 10 tsp. Track calorie intake. Self-monitoring of food and beverage intake has been shown to be an effective strategy for weight management. Prolonged periods of fasting may impair adequate caloric and nutrient intake. Drink alcohol sparingly if at all. Lower levels of alcohol consumption are associated with a lower risk of cancer. For patients desiring further recommendations for dietary guidelines: Consider referral to a registered dietitian or brush polisher. The [employer] approximate food plate volumes (http_s://www.Bringrs plate.gov) are: Vegetables and fruits should comprise half the volume of food on the plate Vegetables: 30% of plate; fruits 20% of plate Whole grains: 30% of plate Protein: 20% of plate Recommended sources of dietary components: Fat: plant sources such as olive or canola oil, avocados, seeds and nuts, and fatty fish Carbohydrates: fruits, vegetables, whole grains, and legumes Protein: poultry, fish, legumes, low-fat dairy foods, and nuts While the risks and benefits of soy foods for cancer survivors have been debated for many years, most studies to date show that moderate consumption of soy foods (up to 3 servings per day) are beneficial in promoting overall health and survival, with the strongest evidence existing for the prevention of lung cancer and reduction of breast cancer recurrence. Practice portion control. Make informed food choices through routine evaluation of food labels. Incorporate physical activity, particularly strength training, to assure optimal lean body mass (SPA-1). Track weight, diet, calories, and physical activity routines (eg, journaling, mobile phone apps). Limit alcohol intake to one drink per day or less for a woman and two drinks or less per day for a man. Avoid smoking! educated on all medications, benefits, side effects and risk, and educated on depression, anxiety, and ADHD, mood d/o and educated on compliance of medications, metabolic and movement d/o education appointment is, continue therapy discussion with patient about course of treatment and patient instructions. education on serotonin syndrome SSRI/SNRI side effects discussed including but not limited to, gastric upset, nausea, vomiting, diarrhea and/or constipation, weight changes, sexual side effects including loss of libido, increased suicidal thoughts/behavio rs in children and young adults, and serotonin syndrome. Second generation antipsychotics (SGAs) have metabolic syndrome issues with weight gain, increase in prolactin, increased waist circumference, increased lipids, and increased glucose. Thus routine monitoring of weight, metabolic labs, etc. is indicated. A general rank ordering of antipsychotics that have the greatest to the least risk of metabolic effects is olanzapine, quetiapine, risperidone, ziprasidone, and aripiprazole. However, weight gain can occur with all of these drugs and considerable variability exists among patients receiving the same drug regarding the risk of metabolic effects. Anti-psychotic agents not only increase the risk of metabolic disorder, they also increase the risk of CVA, akathisia, and movement disorders including EPS or tardive dyskinesia (more common with first generation antipsychotics) and more. Medication Management and Follow-Up - Plan: - Schedule follow-up appointments every 1-3 months to monitor the patient's response to the medication regimen. - Reinforce the importance of avoiding recreational drug use due to potential neurotoxicity and interactions with prescribed medications. 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 websites http_s://www.[facility] h.nih.gov/health /topics/mental-h ealth-medication s http_s://www.nam i.org/About-Ment al-Illness/Treat ments/Mental-Hea lth-Medications http_s://www.nam i.org/About-Ment al-Illness/Menta k-Ydctqq-Vjaepre ons http_s://psychce [employer].com/depres sumeet/the-cogniti se-kdesaagp-hx-d epression#treatm ents http__s://www.ni .nih.gov/healt h/topics/mental- health-medicatio ns http__s://www.na nd.org/About-Men camelia-Illness/Marissa tments/Mental-He alth-Medications http_s://shreya.ni h.gov/publicatio ns/drugfacts/can nabis-marijuana http_s://www.[employer]/can kdjsh-yml-ywcvvu ru-fibmplzau-jki d/ 08/19/2025 Marijuana use (ICD-10 - F12.90) Marijuana Use: Care Instructions material was published, Learning About Cannabis Use Disorder material was published, Marijuana Use: Care Instructions material was published, Learning About Cannabis Use Disorder material was published, Marijuana Use: Care Instructions material was published, Learning About Cannabis Use Disorder material was published 1. Bipolar depression Abilify 10 mg at evening - discuss and educated on [place] for depression, irritable and suicide prevention educated on rx refer to therapy [facility]- plan to see walk in clinic therapy today Increase [place] 450 mg ER AT BEDTIME for Bipolar s/s and help passive thoughts educated on medication. [place] education [place] use reviewed. Risks include risks of toxicity, arrhythmias, cognitive impairment, changes in muscle coordination, weight gain, thyroid and parathyroid changes, polydipsia and polyuria, alopecia, tremor and teratogenicity ( defects). Recommend avoid in females (use contraception consistently). Routine lab monitoring may be required. Patient consented to treatment. Indications: acute erlin (euphoric erlin), bipolar prophylaxis, bipolar depression treatment or augmentation, unipolar depression as augmentation with antidepressants Average dose = I,500 mg/day, target serum level 0.8 [place] is known to reduce risk of suicide. Mechanism of action: inhibits inositol monophosphatase, interfering with 2nd messengers Nuisance Side Effects: sedation, cognitive difficulties, decreased creativity, dry mouth, tremor, increased appetite, weight gain, polydipsia, polyuria, nausea, diarrhea, acne, alopecia Serious Side Effects: Thyroid: hypothyroidism (5%), goiter (3%) Cardiac: decrease in cardiac conduction leading to sick sinus syndrome, blocks SA node Teratogenicity: Ebstein's anomaly 2 in 1,000 Renal: chronic renal insufficiency (after 10-20 years), acute renal failure, polyuria occurs in 50-70% [lithium antagonizes anti-diuretic hormone (ADH)], diabetes insipidus in 10% (treat with amiloride) Drug-drug interactions: increase in lithium: NSAIDs, JOSEPHINE inhibitors, angiotensin II antagonists If you are planning on becoming , notify your health care provider so that he/she can best manage your medications. People living with bipolar disorder who wish to become face important decisions. It is important to discuss the risks and benefits of treatment with your doctor and caregivers. [place] has been associated with an increased risk of Ebstein's anomaly, a heart valve defect. Even though data suggest that the risk of Ebstein's anomaly from first trimester use of lithium is very low, an ultrasound of the heart is recommended at 16 to 20 weeks of gestation. [place] levels should be monitored monthly in early and weekly near delivery. Do not stop taking lithium without first speaking to your health care provider. Discontinuing mood stabilizer medications during has been associated with a significant increase in symptom relapse. If an overdose occurs call your doctor or 911. You may need urgent medical care. You may also contact the poison control center at . A specific treatment to reverse the effects of lithium does not exist, but there are treatments to decrease the effects of the medication. Only a doctor can determine if you require treatment. Avoid drinking alcohol or using illegal drugs while you are taking lithium. They may decrease the benefits (e.g., worsen your condition) and increase adverse effects (e.g., sedation) of the medication. Avoid low sodium diets and dehydration because this can increase the risk of lithium toxicity. Avoid over the counter and prescription pain medications that contain nonsteroidal anti-inflammator y medications (NSAIDS) such as ibuprofen (Motrin, Advil) or naproxen (Aleve, Naprosyn) because these medications can increase the risk of toxicity from lithium. Avoid excessive intake of caffeinated beverages, such as coffee, tea, cola or energy drinks, since these may decrease levels of lithium and decrease effectiveness of the medication. Discontinuing caffeine use may increase lithium levels. Consult your health care provider before reducing or stopping caffeine use. What are the possible side effects of lithium? Common side effects Headache Nausea or vomiting Diarrhea Dizziness or drowsiness Changes in appetite Hand tremors Dry mouth Increased thirst Increased urination Thinning of hair or hair loss Acne-like rash Rare/Serious side effects Signs of lithium toxicity include severe nausea and vomiting, severe hand tremors, confusion, vision changes, and unsteadiness while standing or walking. These symptoms need to be addressed immediately with a medical doctor to ensure your lithium level is not dangerously high. In rare cases, lithium may lead to a reversible condition known as diabetes insipidus. If this occurs you would notice a significant increase in thirst and how much fluid you drink and how much you urinate. Talk to your doctor if you notice you are urinating more frequently than usual. Are There Any Risks For Taking [place] For Long Periods Of Time? Hypothyroidism (low levels of thyroid hormone) may occur with long-term lithium use. Rare kidney problems have been associated with long-term use of lithium. The risk increases with high levels of lithium. Your doctor will monitor your kidney function at routine check-ups to ensure this does not occur. Summary of Black Box Warnings [place] Toxicity [place] toxicity is closely related to lithium blood levels and can occur at doses close to therapeutic levels; lithium levels should be monitored closely when starting the medication or if individuals experience side effects of the medication. 2. Anxiety Therapy- see walk in clinic [place] discuss coping skills Buspar 10 mg three times a day Vistaril 25 mg up to 3x day PRN for anxiety and panic Propranolol 10 mg daily prn for anxiety and panic - helping anxiety educated on all rx and monitor B/P 3. Nicotine use- vaping Do not smoke. Nicotine and other chemicals in cigarettes and cigars can cause lung damage. Ask your healthcare provider for information if you currently smoke and need help to quit. E-cigarettes or smokeless tobacco still contain nicotine. Talk to your healthcare provider before you use these products. education on decrease to stopping nicotine products and stop smoking hotline given Quit - Yes [place] Tobacco Quitline Call a Smoking Quitline The [employer] [place]'s Smoking Quitline, (4-885-95H-QUIT) Smokefree.gov, which connects you with your State's Quitline, (5-881-RXHPICX) [facility] Smoking Quitline, (1-959-RFFPNXG) 4. cannabis Cannabis Use Education Recommend decrease/stop cannabis use as it can negatively impact mood, motivation, anxiety, sleep, focus/concentrat ion/memory (vigilance, elasticity, processing and attention); can also contribute to development of psychosis. Recommend decrease/stop cannabis use as it may be negatively impacting mood, motivation, anxiety, sleep, focus; can also contribute to development of psychosis Cannabis/marijua na information: http__s://shreya.n ih.gov/publicati ons/drugfacts/ca nnabis-marijuana http__s://www.[employer]/ca ymdvjw-fde-mvlir ans-nbjsnhhlw-kq hd/ 5. Passive suicidal thoughts no plans or intent denies SI/HI no active thoughts NO thoughts harm to self or others discuss go to nearest ER if have active thoughts, increase passive thoughts, plans or intent saftey plan discuss 988/911 discuss support system [place] added and educated Evidence suggests an active lifestyle and achieving and maintaining an ideal body weight (20-25 BMI) is optimal for health. Experts recommend at least 30 minutes of moderate to vigorous activity per day as tolerated, 5 days a week Eat healthy, including plenty of fresh fruits and vegetables daily. Strive to have 2/3 cup of your plate to be vegetables, fruits, whole grains and beans, while 1/3 or less should be an animal product. Choose fish and chicken and limit red meat and processed meats. Assess dietary pattern for daily intake of fruits, vegetables, and whole grains, as well as red and processed meats, alcohol, and processed foods or beverages with added fats and/or sugars. Assess timing of meals and snacking habits, portion size, frequency of eating out, and use of added fats and/or sugars to foods or beverages. All survivors should be encouraged to: Follow a predominantly nutrient-rich plant-based diet, including vegetables, fruit, and whole grains. Make informed choices about food to ensure variety and adequate nutrient intake. Limit consumption of red meat such as beef, pork, or valdez to no more than 18 ounces (cooked) per week. Eat processed meats such as ham, hot dogs, deli cuts, weeks, and sausage sparingly if at all. Limit consumption of fast foods and other processed foods that are high in fat, starches, or sugars such as chips, cookies, candy bars, desserts, processed baked goods, sugary cereals, and fried foods. Limit refined sugars to <6 tsp (25 g) for a 2000-calorie daily diet and <9 tsp (38 g) for a 3000-calorie daily diet. One medium cookie has about 2 tsp of sugar; a 12-oz can of a soft drink has about 10 tsp. Track calorie intake. Self-monitoring of food and beverage intake has been shown to be an effective strategy for weight management. Prolonged periods of fasting may impair adequate caloric and nutrient intake. Drink alcohol sparingly if at all. Lower levels of alcohol consumption are associated with a lower risk of cancer. For patients desiring further recommendations for dietary guidelines: Consider referral to a registered dietitian or brush polisher. The USDA approximate food plate volumes (http_s://www.[employer].gov) are: Vegetables and fruits should comprise half the volume of food on the plate Vegetables: 30% of plate; fruits 20% of plate Whole grains: 30% of plate Protein: 20% of plate Recommended sources of dietary components: Fat: plant sources such as olive or canola oil, avocados, seeds and nuts, and fatty fish Carbohydrates: fruits, vegetables, whole grains, and legumes Protein: poultry, fish, legumes, low-fat dairy foods, and nuts While the risks and benefits of soy foods for cancer survivors have been debated for many years, most studies to date show that moderate consumption of soy foods (up to 3 servings per day) are beneficial in promoting overall health and survival, with the strongest evidence existing for the prevention of lung cancer and reduction of breast cancer recurrence. Practice portion control. Make informed food choices through routine evaluation of food labels. Incorporate physical activity, particularly strength training, to assure optimal lean body mass (SPA-1). Track weight, diet, calories, and physical activity routines (eg, journaling, mobile phone apps). Limit alcohol intake to one drink per day or less for a woman and two drinks or less per day for a man. Avoid smoking! educated on all medications, benefits, side effects and risk, and educated on depression, anxiety, and ADHD, mood d/o and educated on compliance of medications, metabolic and movement d/o education appointment is, continue therapy discussion with patient about course of treatment and patient instructions. education on serotonin syndrome SSRI/SNRI side effects discussed including but not limited to, gastric upset, nausea, vomiting, diarrhea and/or constipation, weight changes, sexual side effects including loss of libido, increased suicidal thoughts/behavio rs in children and young adults, and serotonin syndrome. Second generation antipsychotics (SGAs) have metabolic syndrome issues with weight gain, increase in prolactin, increased waist circumference, increased lipids, and increased glucose. Thus routine monitoring of weight, metabolic labs, etc. is indicated. A general rank ordering of antipsychotics that have the greatest to the least risk of metabolic effects is olanzapine, quetiapine, risperidone, ziprasidone, and aripiprazole. However, weight gain can occur with all of these drugs and considerable variability exists among patients receiving the same drug regarding the risk of metabolic effects. Anti-psychotic agents not only increase the risk of metabolic disorder, they also increase the risk of CVA, akathisia, and movement disorders including EPS or tardive dyskinesia (more common with first generation antipsychotics) and more. Medication Management and Follow-Up - Plan: - Schedule follow-up appointments every 1-3 months to monitor the patient's response to the medication regimen. - Reinforce the importance of avoiding recreational drug use due to potential neurotoxicity and interactions with prescribed medications. 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 websites http_s://www.nim h.nih.gov/health /topics/mental-h ealth-medication s http_s://www.nam i.org/About-Ment al-Illness/Treat ments/Mental-Hea lth-Medications http_s://www.nam i.org/About-Ment al-Illness/Menta e-Kqhenf-Ggaktkr ons http_s://psychce ntrTink.com/depres sumeet/the-cogniti oc-rsqqlcvd-uy-d epression#treatm ents http__s://www.ni .nih.gov/healt h/topics/mental- health-medicatio ns http__s://www.na mi.org/About-Men camelia-Illness/Marissa tments/Mental-He alth-Medications http_s://shreya.ni h.gov/publicatio ns/drugfacts/can nabis-marijuana http_s://www.add itudemag.[employer]/can htooj-gbe-otihbo tj-ffjiwumru-ptv d/ 09/17/2025 Marijuana use (ICD-10 - F12.90) Marijuana Use: Care Instructions material was published, Learning About Cannabis Use Disorder material was published, Marijuana Use: Care Instructions material was published, Learning About Cannabis Use Disorder material was published, Marijuana Use: Care Instructions material was published, Learning About Cannabis Use Disorder material was published 1. Bipolar depression - improved Abilify 10 mg at evening - discuss and educated on [place] for depression, irritable and suicide prevention educated on rx refer to therapy LEXI- plan to see walk in clinic therapy today [place] 450 mg ER AT BEDTIME for Bipolar s/s and help passive thoughts- improved educated on medication. [place] education [place] use reviewed. Risks include risks of toxicity, arrhythmias, cognitive impairment, changes in muscle coordination, weight gain, thyroid and parathyroid changes, polydipsia and polyuria, alopecia, tremor and teratogenicity ( defects). Recommend avoid in females (use contraception consistently). Routine lab monitoring may be required. Patient consented to treatment. Indications: acute erlin (euphoric erlin), bipolar prophylaxis, bipolar depression treatment or augmentation, unipolar depression as augmentation with antidepressants Average dose = I,500 mg/day, target serum level 0.8 [place] is known to reduce risk of suicide. Mechanism of action: inhibits inositol monophosphatase, interfering with 2nd messengers Nuisance Side Effects: sedation, cognitive difficulties, decreased creativity, dry mouth, tremor, increased appetite, weight gain, polydipsia, polyuria, nausea, diarrhea, acne, alopecia Serious Side Effects: Thyroid: hypothyroidism (5%), goiter (3%) Cardiac: decrease in cardiac conduction leading to sick sinus syndrome, blocks SA node Teratogenicity: Ebstein's anomaly 2 in 1,000 Renal: chronic renal insufficiency (after 10-20 years), acute renal failure, polyuria occurs in 50-70% [lithium antagonizes anti-diuretic hormone (ADH)], diabetes insipidus in 10% (treat with amiloride) Drug-drug interactions: increase in lithium: NSAIDs, JOSEPHINE inhibitors, angiotensin II antagonists If you are planning on becoming , notify your health care provider so that he/she can best manage your medications. People living with bipolar disorder who wish to become face important decisions. It is important to discuss the risks and benefits of treatment with your doctor and caregivers. [place] has been associated with an increased risk of Ebstein's anomaly, a heart valve defect. Even though data suggest that the risk of Ebstein's anomaly from first trimester use of lithium is very low, an ultrasound of the heart is recommended at 16 to 20 weeks of gestation. [place] levels should be monitored monthly in early and weekly near delivery. Do not stop taking lithium without first speaking to your health care provider. Discontinuing mood stabilizer medications during has been associated with a significant increase in symptom relapse. If an overdose occurs call your doctor or 911. You may need urgent medical care. You may also contact the poison control center at . A specific treatment to reverse the effects of lithium does not exist, but there are treatments to decrease the effects of the medication. Only a doctor can determine if you require treatment. Avoid drinking alcohol or using illegal drugs while you are taking lithium. They may decrease the benefits (e.g., worsen your condition) and increase adverse effects (e.g., sedation) of the medication. Avoid low sodium diets and dehydration because this can increase the risk of lithium toxicity. Avoid over the counter and prescription pain medications that contain nonsteroidal anti-inflammator y medications (NSAIDS) such as ibuprofen (Motrin, Advil) or naproxen (Aleve, Naprosyn) because these medications can increase the risk of toxicity from lithium. Avoid excessive intake of caffeinated beverages, such as coffee, tea, cola or energy drinks, since these may decrease levels of lithium and decrease effectiveness of the medication. Discontinuing caffeine use may increase lithium levels. Consult your health care provider before reducing or stopping caffeine use. What are the possible side effects of lithium? Common side effects Headache Nausea or vomiting Diarrhea Dizziness or drowsiness Changes in appetite Hand tremors Dry mouth Increased thirst Increased urination Thinning of hair or hair loss Acne-like rash Rare/Serious side effects Signs of lithium toxicity include severe nausea and vomiting, severe hand tremors, confusion, vision changes, and unsteadiness while standing or walking. These symptoms need to be addressed immediately with a medical doctor to ensure your lithium level is not dangerously high. In rare cases, lithium may lead to a reversible condition known as diabetes insipidus. If this occurs you would notice a significant increase in thirst and how much fluid you drink and how much you urinate. Talk to your doctor if you notice you are urinating more frequently than usual. Are There Any Risks For Taking [place] For Long Periods Of Time? Hypothyroidism (low levels of thyroid hormone) may occur with long-term lithium use. Rare kidney problems have been associated with long-term use of lithium. The risk increases with high levels of lithium. Your doctor will monitor your kidney function at routine check-ups to ensure this does not occur. Summary of Black Box Warnings [place] Toxicity [place] toxicity is closely related to lithium blood levels and can occur at doses close to therapeutic levels; lithium levels should be monitored closely when starting the medication or if individuals experience side effects of the medication. 2. Anxiety Therapy- see walk in clinic [place] discuss coping skills Buspar 10 mg three times a day Vistaril 25 mg up to 3x day PRN for anxiety and panic - educated patient to take rx three times a day to help anxiety and panic Propranolol 10 mg daily prn for anxiety and panic - helping anxiety educated on all rx and monitor B/P 3. Nicotine use- vaping Do not smoke. Nicotine and other chemicals in cigarettes and cigars can cause lung damage. Ask your healthcare provider for information if you currently smoke and need help to quit. E-cigarettes or smokeless tobacco still contain nicotine. Talk to your healthcare provider before you use these products. education on decrease to stopping nicotine products and stop smoking hotline given Quit - Yes [place] Tobacco Quitline Call a Smoking Quitline The National [employer] [place]'s Smoking Quitline, (6-734-83U-QUIT) Smokefree.gov, which connects you with your State's Quitline, (3-508-MTWCEXY) [facility] Smoking Quitline, (2-080-RDADGHH) 4. cannabis Cannabis Use Education Recommend decrease/stop cannabis use as it can negatively impact mood, motivation, anxiety, sleep, focus/concentrat ion/memory (vigilance, elasticity, processing and attention); can also contribute to development of psychosis. Recommend decrease/stop cannabis use as it may be negatively impacting mood, motivation, anxiety, sleep, focus; can also contribute to development of psychosis Cannabis/marijua na information: http__s://shreya.n ih.gov/publicati ons/drugfacts/ca nnabis-marijuana http__s://www.[employer]/ca jpjtqc-fjv-kppeq mtp-nbixxplfd-zj hd/ 5. Passive suicidal thoughts - improved no passive thoughts no plans or intent denies SI/HI no active thoughts NO thoughts harm to self or others discuss go to nearest ER if have active thoughts, increase passive thoughts, plans or intent saftey plan discuss [phone] discuss support system [place] added and educated 6. ADHD symptoms Creyos scheduled discuss non stimulates related to cannabis use Evidence suggests an active lifestyle and achieving and maintaining an ideal body weight (20-25 BMI) is optimal for health. Experts recommend at least 30 minutes of moderate to vigorous activity per day as tolerated, 5 days a week Eat healthy, including plenty of fresh fruits and vegetables daily. Strive to have 2/3 cup of your plate to be vegetables, fruits, whole grains and beans, while 1/3 or less should be an animal product. Choose fish and chicken and limit red meat and processed meats. Assess dietary pattern for daily intake of fruits, vegetables, and whole grains, as well as red and processed meats, alcohol, and processed foods or beverages with added fats and/or sugars. Assess timing of meals and snacking habits, portion size, frequency of eating out, and use of added fats and/or sugars to foods or beverages. All survivors should be encouraged to: Follow a predominantly nutrient-rich plant-based diet, including vegetables, fruit, and whole grains. Make informed choices about food to ensure variety and adequate nutrient intake. Limit consumption of red meat such as beef, pork, or valdez to no more than 18 ounces (cooked) per week. Eat processed meats such as ham, hot dogs, deli cuts, weeks, and sausage sparingly if at all. Limit consumption of fast foods and other processed foods that are high in fat, starches, or sugars such as chips, cookies, candy bars, desserts, processed baked goods, sugary cereals, and fried foods. Limit refined sugars to <6 tsp (25 g) for a 2000-calorie daily diet and <9 tsp (38 g) for a 3000-calorie daily diet. One medium cookie has about 2 tsp of sugar; a 12-oz can of a soft drink has about 10 tsp. Track calorie intake. Self-monitoring of food and beverage intake has been shown to be an effective strategy for weight management. Prolonged periods of fasting may impair adequate caloric and nutrient intake. Drink alcohol sparingly if at all. Lower levels of alcohol consumption are associated with a lower risk of cancer. For patients desiring further recommendations for dietary guidelines: Consider referral to a registered dietitian or brush polisher. The USDA approximate food plate volumes (http_s://www.[place].gov) are: Vegetables and fruits should comprise half the volume of food on the plate Vegetables: 30% of plate; fruits 20% of plate Whole grains: 30% of plate Protein: 20% of plate Recommended sources of dietary components: Fat: plant sources such as olive or canola oil, avocados, seeds and nuts, and fatty fish Carbohydrates: fruits, vegetables, whole grains, and legumes Protein: poultry, fish, legumes, low-fat dairy foods, and nuts While the risks and benefits of soy foods for cancer survivors have been debated for many years, most studies to date show that moderate consumption of soy foods (up to 3 servings per day) are beneficial in promoting overall health and survival, with the strongest evidence existing for the prevention of lung cancer and reduction of breast cancer recurrence. Practice portion control. Make informed food choices through routine evaluation of food labels. Incorporate physical activity, particularly strength training, to assure optimal lean body mass (SPA-1). Track weight, diet, calories, and physical activity routines (eg, journaling, mobile phone apps). Limit alcohol intake to one drink per day or less for a woman and two drinks or less per day for a man. Avoid smoking! educated on all medications, benefits, side effects and risk, and educated on depression, anxiety, and ADHD, mood d/o and educated on compliance of medications, metabolic and movement d/o education appointment is, continue therapy discussion with patient about course of treatment and patient instructions. education on serotonin syndrome SSRI/SNRI side effects discussed including but not limited to, gastric upset, nausea, vomiting, diarrhea and/or constipation, weight changes, sexual side effects including loss of libido, increased suicidal thoughts/behavio rs in children and young adults, and serotonin syndrome. Second generation antipsychotics (SGAs) have metabolic syndrome issues with weight gain, increase in prolactin, increased waist circumference, increased lipids, and increased glucose. Thus routine monitoring of weight, metabolic labs, etc. is indicated. A general rank ordering of antipsychotics that have the greatest to the least risk of metabolic effects is olanzapine, quetiapine, risperidone, ziprasidone, and aripiprazole. However, weight gain can occur with all of these drugs and considerable variability exists among patients receiving the same drug regarding the risk of metabolic effects. Anti-psychotic agents not only increase the risk of metabolic disorder, they also increase the risk of CVA, akathisia, and movement disorders including EPS or tardive dyskinesia (more common with first generation antipsychotics) and more. Medication Management and Follow-Up - Plan: - Schedule follow-up appointments every 1-3 months to monitor the patient's response to the medication regimen. - Reinforce the importance of avoiding recreational drug use due to potential neurotoxicity and interactions with prescribed medications. 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 websites http_s://www.nim h.nih.gov/health /topics/mental-h ealth-medication s http_s://www.nam i.org/About-Ment al-Illness/Treat ments/Mental-Hea lth-Medications http_s://www.nam i.org/About-Ment al-Illness/Menta p-Gjqrme-Thvmrro ons http_s://psychce [employer].com/depres sumeet/the-cogniti cq-ypuspsos-ne-d epression#treatm ents http__s://www.ni .nih.gov/healt h/topics/mental- health-medicatio ns http__s://www.na mi.org/About-Men camelia-Illness/Marissa tments/Mental-He alth-Medications http_s://shreya.ni h.gov/publicatio ns/drugfacts/can nabis-marijuana http_s://www.[employer]/can pdilv-tkf-ghxrmh uc-hjozbjdmd-iha d/ 10/08/2025 Suicidal thoughts (ICD-10 - R45.851) Suicidal Thoughts in a Family Member: Care Instructions material was published, Suicidal Thoughts and Behavior: Care Instructions material was published, Learning About Making a Suicide Safety Plan material was published, Suicidal Thoughts and Behavior: Care Instructions material was published, Learning About Making a Suicide Safety Plan material was published 1. Bipolar - PATIENT STOPPED ALL RX 10/02/25 when found out - presently erlin restart Abilify 10 mg at evening - schedule to see [facility] [facility]/OB- on discuss and educated on rx and preganancy and Abilify- National Registry for Atypical Antipsychotics - 1- [phone] www.[facility].org/clinc al -nlr-jmdycrxn-ds ogram/pregnancyr egistry discuss and educated on [place] for depression, irritable and suicide prevention educated on rx refer to therapy LEXI- currently off [place] since 10/02/25 hx [place] 450 mg ER AT BEDTIME for Bipolar s/s and help passive thoughts- educated on medication. [place] education [place] use reviewed. Risks include risks of toxicity, arrhythmias, cognitive impairment, changes in muscle coordination, weight gain, thyroid and parathyroid changes, polydipsia and polyuria, alopecia, tremor and teratogenicity ( defects). Recommend avoid in females (use contraception consistently). Routine lab monitoring may be required. Patient consented to treatment. Indications: acute erlin (euphoric erlin), bipolar prophylaxis, bipolar depression treatment or augmentation, unipolar depression as augmentation with antidepressants Average dose = I,500 mg/day, target serum level 0.8 [place] is known to reduce risk of suicide. Mechanism of action: inhibits inositol monophosphatase, interfering with 2nd messengers Nuisance Side Effects: sedation, cognitive difficulties, decreased creativity, dry mouth, tremor, increased appetite, weight gain, polydipsia, polyuria, nausea, diarrhea, acne, alopecia Serious Side Effects: Thyroid: hypothyroidism (5%), goiter (3%) Cardiac: decrease in cardiac conduction leading to sick sinus syndrome, blocks SA node Teratogenicity: Ebstein's anomaly 2 in 1,000 Renal: chronic renal insufficiency (after 10-20 years), acute renal failure, polyuria occurs in 50-70% [lithium antagonizes anti-diuretic hormone (ADH)], diabetes insipidus in 10% (treat with amiloride) Drug-drug interactions: increase in lithium: NSAIDs, JOSEPHINE inhibitors, angiotensin II antagonists If you are planning on becoming , notify your health care provider so that he/she can best manage your medications. People living with bipolar disorder who wish to become face important decisions. It is important to discuss the risks and benefits of treatment with your doctor and caregivers. [place] has been associated with an increased risk of Ebstein's anomaly, a heart valve defect. Even though data suggest that the risk of Ebstein's anomaly from first trimester use of lithium is very low, an ultrasound of the heart is recommended at 16 to 20 weeks of gestation. [place] levels should be monitored monthly in early and weekly near delivery. Do not stop taking lithium without first speaking to your health care provider. Discontinuing mood stabilizer medications during has been associated with a significant increase in symptom relapse. If an overdose occurs call your doctor or 911. You may need urgent medical care. You may also contact the poison control center at . A specific treatment to reverse the effects of lithium does not exist, but there are treatments to decrease the effects of the medication. Only a doctor can determine if you require treatment. Avoid drinking alcohol or using illegal drugs while you are taking lithium. They may decrease the benefits (e.g., worsen your condition) and increase adverse effects (e.g., sedation) of the medication. Avoid low sodium diets and dehydration because this can increase the risk of lithium toxicity. Avoid over the counter and prescription pain medications that contain nonsteroidal anti-inflammator y medications (NSAIDS) such as ibuprofen (Motrin, Advil) or naproxen (Aleve, Naprosyn) because these medications can increase the risk of toxicity from lithium. Avoid excessive intake of caffeinated beverages, such as coffee, tea, cola or energy drinks, since these may decrease levels of lithium and decrease effectiveness of the medication. Discontinuing caffeine use may increase lithium levels. Consult your health care provider before reducing or stopping caffeine use. What are the possible side effects of lithium? Common side effects Headache Nausea or vomiting Diarrhea Dizziness or drowsiness Changes in appetite Hand tremors Dry mouth Increased thirst Increased urination Thinning of hair or hair loss Acne-like rash Rare/Serious side effects Signs of lithium toxicity include severe nausea and vomiting, severe hand tremors, confusion, vision changes, and unsteadiness while standing or walking. These symptoms need to be addressed immediately with a medical doctor to ensure your lithium level is not dangerously high. In rare cases, lithium may lead to a reversible condition known as diabetes insipidus. If this occurs you would notice a significant increase in thirst and how much fluid you drink and how much you urinate. Talk to your doctor if you notice you are urinating more frequently than usual. Are There Any Risks For Taking [place] For Long Periods Of Time? Hypothyroidism (low levels of thyroid hormone) may occur with long-term lithium use. Rare kidney problems have been associated with long-term use of lithium. The risk increases with high levels of lithium. Your doctor will monitor your kidney function at routine check-ups to ensure this does not occur. Summary of Black Box Warnings [place] Toxicity [place] toxicity is closely related to lithium blood levels and can occur at doses close to therapeutic levels; lithium levels should be monitored closely when starting the medication or if individuals experience side effects of the medication. 2. Anxiety Therapy- discuss coping skills stopped Buspar 10 mg three times a day- currently off since 10/02/25 stopped Vistaril 25 mg up to 3x day PRN for anxiety and panic - currently off since 10/02/25 stopped Propranolol 10 mg daily prn for anxiety and panic - helping anxiety- currently off since 10/02/25 educated on all rx and monitor B/P 3. Nicotine use- vaping Do not smoke. Nicotine and other chemicals in cigarettes and cigars can cause lung damage. Ask your healthcare provider for information if you currently smoke and need help to quit. E-cigarettes or smokeless tobacco still contain nicotine. Talk to your healthcare provider before you use these products. education on decrease to stopping nicotine products and stop smoking hotline given -Quit - Yes [place] Tobacco Quitline Call a Smoking Quitline The National [employer] [place]'s Smoking Quitline, (8-274-10A-QUIT) Smokefree.gov, which connects you with your State's Quitline, (7-100-FPIGJAA) [facility] Smoking Quitline, (8-717-XNZYTZA) 4. cannabis- stopped 10/02/25 Cannabis Use Education Recommend decrease/stop cannabis use as it can negatively impact mood, motivation, anxiety, sleep, focus/concentrat ion/memory (vigilance, elasticity, processing and attention); can also contribute to development of psychosis. Recommend decrease/stop cannabis use as it may be negatively impacting mood, motivation, anxiety, sleep, focus; can also contribute to development of psychosis Cannabis/marijua na information: http__s://shreya.n ih.gov/publicati ons/drugfacts/ca nnabis-marijuana http__s://www.[employer]/ca gqgojj-xup-dyfah efz-nblehhxdj-ss hd/ 5. Passive suicidal thoughts - passive thoughts - restart Abilify no plans or intent denies SI/HI no active thoughts NO thoughts harm to self or others discuss go to nearest ER if have active thoughts, increase passive thoughts, plans or intent saftey plan discuss [phone]/911 discuss support system [place] added and educated 6. ADHD symptoms Creyos scheduled discuss non stimulates related to cannabis use no rx at this time Evidence suggests an active lifestyle and achieving and maintaining an ideal body weight (20-25 BMI) is optimal for health. Experts recommend at least 30 minutes of moderate to vigorous activity per day as tolerated, 5 days a week Eat healthy, including plenty of fresh fruits and vegetables daily. Strive to have 2/3 cup of your plate to be vegetables, fruits, whole grains and beans, while 1/3 or less should be an animal product. Choose fish and chicken and limit red meat and processed meats. Assess dietary pattern for daily intake of fruits, vegetables, and whole grains, as well as red and processed meats, alcohol, and processed foods or beverages with added fats and/or sugars. Assess timing of meals and snacking habits, portion size, frequency of eating out, and use of added fats and/or sugars to foods or beverages. All survivors should be encouraged to: Follow a predominantly nutrient-rich plant-based diet, including vegetables, fruit, and whole grains. Make informed choices about food to ensure variety and adequate nutrient intake. Limit consumption of red meat such as beef, pork, or valdez to no more than 18 ounces (cooked) per week. Eat processed meats such as ham, hot dogs, deli cuts, weeks, and sausage sparingly if at all. Limit consumption of fast foods and other processed foods that are high in fat, starches, or sugars such as chips, cookies, candy bars, desserts, processed baked goods, sugary cereals, and fried foods. Limit refined sugars to <6 tsp (25 g) for a 2000-calorie daily diet and <9 tsp (38 g) for a 3000-calorie daily diet. One medium cookie has about 2 tsp of sugar; a 12-oz can of a soft drink has about 10 tsp. Track calorie intake. Self-monitoring of food and beverage intake has been shown to be an effective strategy for weight management. Prolonged periods of fasting may impair adequate caloric and nutrient intake. Drink alcohol sparingly if at all. Lower levels of alcohol consumption are associated with a lower risk of cancer. For patients desiring further recommendations for dietary guidelines: Consider referral to a registered dietitian or brush polisher. The USDA approximate food plate volumes (http_s://www.Bringrs plate.gov) are: Vegetables and fruits should comprise half the volume of food on the plate Vegetables: 30% of plate; fruits 20% of plate Whole grains: 30% of plate Protein: 20% of plate Recommended sources of dietary components: Fat: plant sources such as olive or canola oil, avocados, seeds and nuts, and fatty fish Carbohydrates: fruits, vegetables, whole grains, and legumes Protein: poultry, fish, legumes, low-fat dairy foods, and nuts While the risks and benefits of soy foods for cancer survivors have been debated for many years, most studies to date show that moderate consumption of soy foods (up to 3 servings per day) are beneficial in promoting overall health and survival, with the strongest evidence existing for the prevention of lung cancer and reduction of breast cancer recurrence. Practice portion control. Make informed food choices through routine evaluation of food labels. Incorporate physical activity, particularly strength training, to assure optimal lean body mass (SPA-1). Track weight, diet, calories, and physical activity routines (eg, journaling, mobile phone apps). Limit alcohol intake to one drink per day or less for a woman and two drinks or less per day for a man. Avoid smoking! educated on all medications, benefits, side effects and risk, and educated on depression, anxiety, and ADHD, mood d/o and educated on compliance of medications, metabolic and movement d/o education appointment is, continue therapy discussion with patient about course of treatment and patient instructions. education on serotonin syndrome SSRI/SNRI side effects discussed including but not limited to, gastric upset, nausea, vomiting, diarrhea and/or constipation, weight changes, sexual side effects including loss of libido, increased suicidal thoughts/behavio rs in children and young adults, and serotonin syndrome. Second generation antipsychotics (SGAs) have metabolic syndrome issues with weight gain, increase in prolactin, increased waist circumference, increased lipids, and increased glucose. Thus routine monitoring of weight, metabolic labs, etc. is indicated. A general rank ordering of antipsychotics that have the greatest to the least risk of metabolic effects is olanzapine, quetiapine, risperidone, ziprasidone, and aripiprazole. However, weight gain can occur with all of these drugs and considerable variability exists among patients receiving the same drug regarding the risk of metabolic effects. Anti-psychotic agents not only increase the risk of metabolic disorder, they also increase the risk of CVA, akathisia, and movement disorders including EPS or tardive dyskinesia (more common with first generation antipsychotics) and more. Medication Management and Follow-Up - Plan: - Schedule follow-up appointments every 1-3 months to monitor the patient's response to the medication regimen. - Reinforce the importance of avoiding recreational drug use due to potential neurotoxicity and interactions with prescribed medications. 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 websites http_s://www.nim h.nih.gov/health /topics/mental-h ealth-medication s http_s://www.nam i.org/About-Ment al-Illness/Treat ments/Mental-Hea lth-Medications http_s://www.nam i.org/About-Ment al-Illness/Menta o-Tbdnpf-Ejcrtnv ons http_s://psychce [employer].com/deprilya sumeet/the-cogniti aw-nnvpvmzm-dc-d epression#treattony ents http__s://www.ni .nih.gov/healt h/topics/mental- health-medicatio ns http__s://www.na mi.org/About-Men camelia-Illness/Marissa tments/Mental-He alth-Medications http_s://shreya.ni h.gov/publicatio ns/drugfacts/can nabis-marijuana http_s://wwwCasentric/can hfjld-ccu-smcqia qa-pgngdtvtz-bmd d/ 10/08/2025 ADHD (attention deficit hyperactivity disorder), combined type (ICD-10 - F90.2) Learning About Attention Deficit Hyperactivity Disorder (ADHD) in Adults material was published 1. Bipolar - PATIENT STOPPED ALL RX 10/02/25 when found out - presently erlin restart Abilify 10 mg at evening - schedule to see [facility]/OB- on discuss and educated on rx and preganancy and Abilify- National Registry for Atypical Antipsychotics - 1- [id number] www.womenental health.org/clinc al -nag-dcaxzdbn-nt ogram/pregnancyr egistry discuss and educated on [place] for depression, irritable and suicide prevention educated on rx refer to therapy [facility]- currently off [place] since 10/02/25 hx [place] 450 mg ER AT BEDTIME for Bipolar s/s and help passive thoughts- educated on medication. [place] education [place] use reviewed. Risks include risks of toxicity, arrhythmias, cognitive impairment, changes in muscle coordination, weight gain, thyroid and parathyroid changes, polydipsia and polyuria, alopecia, tremor and teratogenicity ( defects). Recommend avoid in females (use contraception consistently). Routine lab monitoring may be required. Patient consented to treatment. Indications: acute erlin (euphoric erlin), bipolar prophylaxis, bipolar depression treatment or augmentation, unipolar depression as augmentation with antidepressants Average dose = I,500 mg/day, target serum level 0.8 [place] is known to reduce risk of suicide. Mechanism of action: inhibits inositol monophosphatase, interfering with 2nd messengers Nuisance Side Effects: sedation, cognitive difficulties, decreased creativity, dry mouth, tremor, increased appetite, weight gain, polydipsia, polyuria, nausea, diarrhea, acne, alopecia Serious Side Effects: Thyroid: hypothyroidism (5%), goiter (3%) Cardiac: decrease in cardiac conduction leading to sick sinus syndrome, blocks SA node Teratogenicity: Ebstein's anomaly 2 in 1,000 Renal: chronic renal insufficiency (after 10-20 years), acute renal failure, polyuria occurs in 50-70% [lithium antagonizes anti-diuretic hormone (ADH)], diabetes insipidus in 10% (treat with amiloride) Drug-drug interactions: increase in lithium: NSAIDs, JOSEPHINE inhibitors, angiotensin II antagonists If you are planning on becoming , notify your health care provider so that he/she can best manage your medications. People living with bipolar disorder who wish to become face important decisions. It is important to discuss the risks and benefits of treatment with your doctor and caregivers. [place] has been associated with an increased risk of Ebstein's anomaly, a heart valve defect. Even though data suggest that the risk of Ebstein's anomaly from first trimester use of lithium is very low, an ultrasound of the heart is recommended at 16 to 20 weeks of gestation. [place] levels should be monitored monthly in early and weekly near delivery. Do not stop taking lithium without first speaking to your health care provider. Discontinuing mood stabilizer medications during has been associated with a significant increase in symptom relapse. If an overdose occurs call your doctor or 911. You may need urgent medical care. You may also contact the poison control center at . A specific treatment to reverse the effects of lithium does not exist, but there are treatments to decrease the effects of the medication. Only a doctor can determine if you require treatment. Avoid drinking alcohol or using illegal drugs while you are taking lithium. They may decrease the benefits (e.g., worsen your condition) and increase adverse effects (e.g., sedation) of the medication. Avoid low sodium diets and dehydration because this can increase the risk of lithium toxicity. Avoid over the counter and prescription pain medications that contain nonsteroidal anti-inflammator y medications (NSAIDS) such as ibuprofen (Motrin, Advil) or naproxen (Aleve, Naprosyn) because these medications can increase the risk of toxicity from lithium. Avoid excessive intake of caffeinated beverages, such as coffee, tea, cola or energy drinks, since these may decrease levels of lithium and decrease effectiveness of the medication. Discontinuing caffeine use may increase lithium levels. Consult your health care provider before reducing or stopping caffeine use. What are the possible side effects of lithium? Common side effects Headache Nausea or vomiting Diarrhea Dizziness or drowsiness Changes in appetite Hand tremors Dry mouth Increased thirst Increased urination Thinning of hair or hair loss Acne-like rash Rare/Serious side effects Signs of lithium toxicity include severe nausea and vomiting, severe hand tremors, confusion, vision changes, and unsteadiness while standing or walking. These symptoms need to be addressed immediately with a medical doctor to ensure your lithium level is not dangerously high. In rare cases, lithium may lead to a reversible condition known as diabetes insipidus. If this occurs you would notice a significant increase in thirst and how much fluid you drink and how much you urinate. Talk to your doctor if you notice you are urinating more frequently than usual. Are There Any Risks For Taking [place] For Long Periods Of Time? Hypothyroidism (low levels of thyroid hormone) may occur with long-term lithium use. Rare kidney problems have been associated with long-term use of lithium. The risk increases with high levels of lithium. Your doctor will monitor your kidney function at routine check-ups to ensure this does not occur. Summary of Black Box Warnings [place] Toxicity [place] toxicity is closely related to lithium blood levels and can occur at doses close to therapeutic levels; lithium levels should be monitored closely when starting the medication or if individuals experience side effects of the medication. 2. Anxiety Therapy- discuss coping skills stopped Buspar 10 mg three times a day- currently off since 10/02/25 stopped Vistaril 25 mg up to 3x day PRN for anxiety and panic - currently off since 10/02/25 stopped Propranolol 10 mg daily prn for anxiety and panic - helping anxiety- currently off since 10/02/25 educated on all rx and monitor B/P 3. Nicotine use- vaping Do not smoke. Nicotine and other chemicals in cigarettes and cigars can cause lung damage. Ask your healthcare provider for information if you currently smoke and need help to quit. E-cigarettes or smokeless tobacco still contain nicotine. Talk to your healthcare provider before you use these products. education on decrease to stopping nicotine products and stop smoking hotline given -Quit - Yes [place] Tobacco Quitline Call a Smoking Quitline The National Cancer [place]'s Smoking Quitline, (3-273-55G-QUIT) Smokefree.gov, which connects you with your State's Quitline, (5-426-ADJOTUW) Veterans Smoking Quitline, (5-548-WYNDOHU) 4. cannabis- stopped 10/02/25 Cannabis Use Education Recommend decrease/stop cannabis use as it can negatively impact mood, motivation, anxiety, sleep, focus/concentrat ion/memory (vigilance, elasticity, processing and attention); can also contribute to development of psychosis. Recommend decrease/stop cannabis use as it may be negatively impacting mood, motivation, anxiety, sleep, focus; can also contribute to development of psychosis Cannabis/marijua na information: http__s://shreya.n ih.gov/publicati ons/drugfacts/ca nnabis-marijuana http__s://[employer].Given.to/ca nxxwdt-nqo-qpexf hqa-pixgwtbjl-qz hd/ 5. Passive suicidal thoughts - passive thoughts - restart Abilify no plans or intent denies SI/HI no active thoughts NO thoughts harm to self or others discuss go to nearest ER if have active thoughts, increase passive thoughts, plans or intent saftey plan discuss [phone] discuss support system [place] added and educated 6. ADHD symptoms Creyos scheduled discuss non stimulates related to cannabis use no rx at this time Evidence suggests an active lifestyle and achieving and maintaining an ideal body weight (20-25 BMI) is optimal for health. Experts recommend at least 30 minutes of moderate to vigorous activity per day as tolerated, 5 days a week Eat healthy, including plenty of fresh fruits and vegetables daily. Strive to have 2/3 cup of your plate to be vegetables, fruits, whole grains and beans, while 1/3 or less should be an animal product. Choose fish and chicken and limit red meat and processed meats. Assess dietary pattern for daily intake of fruits, vegetables, and whole grains, as well as red and processed meats, alcohol, and processed foods or beverages with added fats and/or sugars. Assess timing of meals and snacking habits, portion size, frequency of eating out, and use of added fats and/or sugars to foods or beverages. All survivors should be encouraged to: Follow a predominantly nutrient-rich plant-based diet, including vegetables, fruit, and whole grains. Make informed choices about food to ensure variety and adequate nutrient intake. Limit consumption of red meat such as beef, pork, or valdez to no more than 18 ounces (cooked) per week. Eat processed meats such as ham, hot dogs, deli cuts, weeks, and sausage sparingly if at all. Limit consumption of fast foods and other processed foods that are high in fat, starches, or sugars such as chips, cookies, candy bars, desserts, processed baked goods, sugary cereals, and fried foods. Limit refined sugars to <6 tsp (25 g) for a 2000-calorie daily diet and <9 tsp (38 g) for a 3000-calorie daily diet. One medium cookie has about 2 tsp of sugar; a 12-oz can of a soft drink has about 10 tsp. Track calorie intake. Self-monitoring of food and beverage intake has been shown to be an effective strategy for weight management. Prolonged periods of fasting may impair adequate caloric and nutrient intake. Drink alcohol sparingly if at all. Lower levels of alcohol consumption are associated with a lower risk of cancer. For patients desiring further recommendations for dietary guidelines: Consider referral to a registered dietitian or brush polisher. The USDA approximate food plate volumes (http_s://www.my plate.gov) are: Vegetables and fruits should comprise half the volume of food on the plate Vegetables: 30% of plate; fruits 20% of plate Whole grains: 30% of plate Protein: 20% of plate Recommended sources of dietary components: Fat: plant sources such as olive or canola oil, avocados, seeds and nuts, and fatty fish Carbohydrates: fruits, vegetables, whole grains, and legumes Protein: poultry, fish, legumes, low-fat dairy foods, and nuts While the risks and benefits of soy foods for cancer survivors have been debated for many years, most studies to date show that moderate consumption of soy foods (up to 3 servings per day) are beneficial in promoting overall health and survival, with the strongest evidence existing for the prevention of lung cancer and reduction of breast cancer recurrence. Practice portion control. Make informed food choices through routine evaluation of food labels. Incorporate physical activity, particularly strength training, to assure optimal lean body mass (SPA-1). Track weight, diet, calories, and physical activity routines (eg, journaling, mobile phone apps). Limit alcohol intake to one drink per day or less for a woman and two drinks or less per day for a man. Avoid smoking! educated on all medications, benefits, side effects and risk, and educated on depression, anxiety, and ADHD, mood d/o and educated on compliance of medications, metabolic and movement d/o education appointment is, continue therapy discussion with patient about course of treatment and patient instructions. education on serotonin syndrome SSRI/SNRI side effects discussed including but not limited to, gastric upset, nausea, vomiting, diarrhea and/or constipation, weight changes, sexual side effects including loss of libido, increased suicidal thoughts/behavio rs in children and young adults, and serotonin syndrome. Second generation antipsychotics (SGAs) have metabolic syndrome issues with weight gain, increase in prolactin, increased waist circumference, increased lipids, and increased glucose. Thus routine monitoring of weight, metabolic labs, etc. is indicated. A general rank ordering of antipsychotics that have the greatest to the least risk of metabolic effects is olanzapine, quetiapine, risperidone, ziprasidone, and aripiprazole. However, weight gain can occur with all of these drugs and considerable variability exists among patients receiving the same drug regarding the risk of metabolic effects. Anti-psychotic agents not only increase the risk of metabolic disorder, they also increase the risk of CVA, akathisia, and movement disorders including EPS or tardive dyskinesia (more common with first generation antipsychotics) and more. Medication Management and Follow-Up - Plan: - Schedule follow-up appointments every 1-3 months to monitor the patient's response to the medication regimen. - Reinforce the importance of avoiding recreational drug use due to potential neurotoxicity and interactions with prescribed medications. 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 websites http_s://www.[facility] h.nih.gov/health /topics/mental-h ealth-medication s http_s://www.nam i.org/About-Ment al-Illness/Treat ments/Mental-Hea lth-Medications http_s://www.nam i.org/About-Ment al-Illness/Menta v-Hiapmj-Sqafakw ons http_s://psychSMATOOS/depres sumeet/the-cogniti fr-hxrgmlqk-yr-d epression#treatm ents http__s://www.[facility].nih.gov/healt h/topics/mental- health-medicatio ns http__s://www.na mi.org/About-Men camelia-Illness/Marissa tments/Mental-He alth-Medications http_s://shreya. h.gov/publicatio ns/drugfacts/can nabis-marijuana http_s://www.[employer]/can rjaak-mxf-hqviqy xz-evqolzdla-uan d/ 09/17/2025 Panic disorder (ICD-10 - F41.0) Panic Attacks: Care Instructions material was published 1. Bipolar depression - improved Abilify 10 mg at evening - discuss and educated on [place] for depression, irritable and suicide prevention educated on rx refer to therapy [facility]I- plan to see walk in clinic therapy today [place] 450 mg ER AT BEDTIME for Bipolar s/s and help passive thoughts- improved educated on medication. [place] education [place] use reviewed. Risks include risks of toxicity, arrhythmias, cognitive impairment, changes in muscle coordination, weight gain, thyroid and parathyroid changes, polydipsia and polyuria, alopecia, tremor and teratogenicity ( defects). Recommend avoid in females (use contraception consistently). Routine lab monitoring may be required. Patient consented to treatment. Indications: acute erlin (euphoric erlin), bipolar prophylaxis, bipolar depression treatment or augmentation, unipolar depression as augmentation with antidepressants Average dose = I,500 mg/day, target serum level 0.8 [place] is known to reduce risk of suicide. Mechanism of action: inhibits inositol monophosphatase, interfering with 2nd messengers Nuisance Side Effects: sedation, cognitive difficulties, decreased creativity, dry mouth, tremor, increased appetite, weight gain, polydipsia, polyuria, nausea, diarrhea, acne, alopecia Serious Side Effects: Thyroid: hypothyroidism (5%), goiter (3%) Cardiac: decrease in cardiac conduction leading to sick sinus syndrome, blocks SA node Teratogenicity: Ebstein's anomaly 2 in 1,000 Renal: chronic renal insufficiency (after 10-20 years), acute renal failure, polyuria occurs in 50-70% [lithium antagonizes anti-diuretic hormone (ADH)], diabetes insipidus in 10% (treat with amiloride) Drug-drug interactions: increase in lithium: NSAIDs, JOSEPHINE inhibitors, angiotensin II antagonists If you are planning on becoming , notify your health care provider so that he/she can best manage your medications. People living with bipolar disorder who wish to become face important decisions. It is important to discuss the risks and benefits of treatment with your doctor and caregivers. [place] has been associated with an increased risk of Ebstein's anomaly, a heart valve defect. Even though data suggest that the risk of Ebstein's anomaly from first trimester use of lithium is very low, an ultrasound of the heart is recommended at 16 to 20 weeks of gestation. [place] levels should be monitored monthly in early and weekly near delivery. Do not stop taking lithium without first speaking to your health care provider. Discontinuing mood stabilizer medications during has been associated with a significant increase in symptom relapse. If an overdose occurs call your doctor or 911. You may need urgent medical care. You may also contact the poison control center at . A specific treatment to reverse the effects of lithium does not exist, but there are treatments to decrease the effects of the medication. Only a doctor can determine if you require treatment. Avoid drinking alcohol or using illegal drugs while you are taking lithium. They may decrease the benefits (e.g., worsen your condition) and increase adverse effects (e.g., sedation) of the medication. Avoid low sodium diets and dehydration because this can increase the risk of lithium toxicity. Avoid over the counter and prescription pain medications that contain nonsteroidal anti-inflammator y medications (NSAIDS) such as ibuprofen (Motrin, Advil) or naproxen (Aleve, Naprosyn) because these medications can increase the risk of toxicity from lithium. Avoid excessive intake of caffeinated beverages, such as coffee, tea, cola or energy drinks, since these may decrease levels of lithium and decrease effectiveness of the medication. Discontinuing caffeine use may increase lithium levels. Consult your health care provider before reducing or stopping caffeine use. What are the possible side effects of lithium? Common side effects Headache Nausea or vomiting Diarrhea Dizziness or drowsiness Changes in appetite Hand tremors Dry mouth Increased thirst Increased urination Thinning of hair or hair loss Acne-like rash Rare/Serious side effects Signs of lithium toxicity include severe nausea and vomiting, severe hand tremors, confusion, vision changes, and unsteadiness while standing or walking. These symptoms need to be addressed immediately with a medical doctor to ensure your lithium level is not dangerously high. In rare cases, lithium may lead to a reversible condition known as diabetes insipidus. If this occurs you would notice a significant increase in thirst and how much fluid you drink and how much you urinate. Talk to your doctor if you notice you are urinating more frequently than usual. Are There Any Risks For Taking [place] For Long Periods Of Time? Hypothyroidism (low levels of thyroid hormone) may occur with long-term lithium use. Rare kidney problems have been associated with long-term use of lithium. The risk increases with high levels of lithium. Your doctor will monitor your kidney function at routine check-ups to ensure this does not occur. Summary of Black Box Warnings [place] Toxicity [place] toxicity is closely related to lithium blood levels and can occur at doses close to therapeutic levels; lithium levels should be monitored closely when starting the medication or if individuals experience side effects of the medication. 2. Anxiety Therapy- see walk in clinic [place] discuss coping skills Buspar 10 mg three times a day Vistaril 25 mg up to 3x day PRN for anxiety and panic - educated patient to take rx three times a day to help anxiety and panic Propranolol 10 mg daily prn for anxiety and panic - helping anxiety educated on all rx and monitor B/P 3. Nicotine use- vaping Do not smoke. Nicotine and other chemicals in cigarettes and cigars can cause lung damage. Ask your healthcare provider for information if you currently smoke and need help to quit. E-cigarettes or smokeless tobacco still contain nicotine. Talk to your healthcare provider before you use these products. education on decrease to stopping nicotine products and stop smoking hotline given -Quit - Yes [place] Tobacco Quitline Call a Smoking Quitline The [employer] [place]'s Smoking Quitline, (1-636-40J-QUIT) Smokefree.gov, which connects you with your State's Quitline, (8-066-XVOJZZO) Veterans Smoking Quitline, (0-921-UVCBOTM) 4. cannabis Cannabis Use Education Recommend decrease/stop cannabis use as it can negatively impact mood, motivation, anxiety, sleep, focus/concentrat ion/memory (vigilance, elasticity, processing and attention); can also contribute to development of psychosis. Recommend decrease/stop cannabis use as it may be negatively impacting mood, motivation, anxiety, sleep, focus; can also contribute to development of psychosis Cannabis/marijua na information: http__s://shreya.n [place].gov/publicati ons/drugfacts/[place] nnabis-marijuana http__s://[employer].Given.to/ca fdgmil-hod-edxct vjq-qgxdlssvk-pa hd/ 5. Passive suicidal thoughts - improved no passive thoughts no plans or intent denies SI/HI no active thoughts NO thoughts harm to self or others discuss go to nearest ER if have active thoughts, increase passive thoughts, plans or intent saftey plan discuss 988/911 discuss support system [place] added and educated 6. ADHD symptoms Creyos scheduled discuss non stimulates related to cannabis use Evidence suggests an active lifestyle and achieving and maintaining an ideal body weight (20-25 BMI) is optimal for health. Experts recommend at least 30 minutes of moderate to vigorous activity per day as tolerated, 5 days a week Eat healthy, including plenty of fresh fruits and vegetables daily. Strive to have 2/3 cup of your plate to be vegetables, fruits, whole grains and beans, while 1/3 or less should be an animal product. Choose fish and chicken and limit red meat and processed meats. Assess dietary pattern for daily intake of fruits, vegetables, and whole grains, as well as red and processed meats, alcohol, and processed foods or beverages with added fats and/or sugars. Assess timing of meals and snacking habits, portion size, frequency of eating out, and use of added fats and/or sugars to foods or beverages. All survivors should be encouraged to: Follow a predominantly nutrient-rich plant-based diet, including vegetables, fruit, and whole grains. Make informed choices about food to ensure variety and adequate nutrient intake. Limit consumption of red meat such as beef, pork, or valdez to no more than 18 ounces (cooked) per week. Eat processed meats such as ham, hot dogs, deli cuts, weeks, and sausage sparingly if at all. Limit consumption of fast foods and other processed foods that are high in fat, starches, or sugars such as chips, cookies, candy bars, desserts, processed baked goods, sugary cereals, and fried foods. Limit refined sugars to <6 tsp (25 g) for a 2000-calorie daily diet and <9 tsp (38 g) for a 3000-calorie daily diet. One medium cookie has about 2 tsp of sugar; a 12-oz can of a soft drink has about 10 tsp. Track calorie intake. Self-monitoring of food and beverage intake has been shown to be an effective strategy for weight management. Prolonged periods of fasting may impair adequate caloric and nutrient intake. Drink alcohol sparingly if at all. Lower levels of alcohol consumption are associated with a lower risk of cancer. For patients desiring further recommendations for dietary guidelines: Consider referral to a registered dietitian or brush polisher. The USDA approximate food plate volumes (http_s://www.my plate.gov) are: Vegetables and fruits should comprise half the volume of food on the plate Vegetables: 30% of plate; fruits 20% of plate Whole grains: 30% of plate Protein: 20% of plate Recommended sources of dietary components: Fat: plant sources such as olive or canola oil, avocados, seeds and nuts, and fatty fish Carbohydrates: fruits, vegetables, whole grains, and legumes Protein: poultry, fish, legumes, low-fat dairy foods, and nuts While the risks and benefits of soy foods for cancer survivors have been debated for many years, most studies to date show that moderate consumption of soy foods (up to 3 servings per day) are beneficial in promoting overall health and survival, with the strongest evidence existing for the prevention of lung cancer and reduction of breast cancer recurrence. Practice portion control. Make informed food choices through routine evaluation of food labels. Incorporate physical activity, particularly strength training, to assure optimal lean body mass (SPA-1). Track weight, diet, calories, and physical activity routines (eg, journaling, mobile phone apps). Limit alcohol intake to one drink per day or less for a woman and two drinks or less per day for a man. Avoid smoking! educated on all medications, benefits, side effects and risk, and educated on depression, anxiety, and ADHD, mood d/o and educated on compliance of medications, metabolic and movement d/o education appointment is, continue therapy discussion with patient about course of treatment and patient instructions. education on serotonin syndrome SSRI/SNRI side effects discussed including but not limited to, gastric upset, nausea, vomiting, diarrhea and/or constipation, weight changes, sexual side effects including loss of libido, increased suicidal thoughts/behavio rs in children and young adults, and serotonin syndrome. Second generation antipsychotics (SGAs) have metabolic syndrome issues with weight gain, increase in prolactin, increased waist circumference, increased lipids, and increased glucose. Thus routine monitoring of weight, metabolic labs, etc. is indicated. A general rank ordering of antipsychotics that have the greatest to the least risk of metabolic effects is olanzapine, quetiapine, risperidone, ziprasidone, and aripiprazole. However, weight gain can occur with all of these drugs and considerable variability exists among patients receiving the same drug regarding the risk of metabolic effects. Anti-psychotic agents not only increase the risk of metabolic disorder, they also increase the risk of CVA, akathisia, and movement disorders including EPS or tardive dyskinesia (more common with first generation antipsychotics) and more. Medication Management and Follow-Up - Plan: - Schedule follow-up appointments every 1-3 months to monitor the patient's response to the medication regimen. - Reinforce the importance of avoiding recreational drug use due to potential neurotoxicity and interactions with prescribed medications. 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 websites http_s://www.nim h.nih.gov/health /topics/mental-h ealth-medication s http_s://www.nam i.org/About-Ment al-Illness/Treat ments/Mental-Hea lth-Medications http_s://www.nam i.org/About-Ment al-Illness/Menta b-Rxghet-Racypbi ons http_s://[employer]/depres sumeet/the-cogniti cz-nyevadvi-nx-d epression#treatm ents http__s://www.[facility].nih.gov/healt h/topics/mental- health-medicatio ns http__s://www.na mi.org/About-Men camelia-Illness/Marissa tments/Mental-He alth-Medications http_s://shreya.[facility].gov/publicatio ns/drugfacts/can nabis-marijuana http_s://www.[employer]/can rgmbm-wby-wwvjsj tj-jukrsfrej-wqj d/ 08/19/2025 Panic disorder (ICD-10 - F41.0) Panic Attacks: Care Instructions material was published 1. Bipolar depression Abilify 10 mg at evening - discuss and educated on [place] for depression, irritable and suicide prevention educated on rx refer to therapy [facility]- plan to see walk in clinic therapy today Increase [place] 450 mg ER AT BEDTIME for Bipolar s/s and help passive thoughts educated on medication. [place] education [place] use reviewed. Risks include risks of toxicity, arrhythmias, cognitive impairment, changes in muscle coordination, weight gain, thyroid and parathyroid changes, polydipsia and polyuria, alopecia, tremor and teratogenicity ( defects). Recommend avoid in females (use contraception consistently). Routine lab monitoring may be required. Patient consented to treatment. Indications: acute erlin (euphoric erlin), bipolar prophylaxis, bipolar depression treatment or augmentation, unipolar depression as augmentation with antidepressants Average dose = I,500 mg/day, target serum level 0.8 [place] is known to reduce risk of suicide. Mechanism of action: inhibits inositol monophosphatase, interfering with 2nd messengers Nuisance Side Effects: sedation, cognitive difficulties, decreased creativity, dry mouth, tremor, increased appetite, weight gain, polydipsia, polyuria, nausea, diarrhea, acne, alopecia Serious Side Effects: Thyroid: hypothyroidism (5%), goiter (3%) Cardiac: decrease in cardiac conduction leading to sick sinus syndrome, blocks SA node Teratogenicity: Ebstein's anomaly 2 in 1,000 Renal: chronic renal insufficiency (after 10-20 years), acute renal failure, polyuria occurs in 50-70% [lithium antagonizes anti-diuretic hormone (ADH)], diabetes insipidus in 10% (treat with amiloride) Drug-drug interactions: increase in lithium: NSAIDs, JOSEPHINE inhibitors, angiotensin II antagonists If you are planning on becoming , notify your health care provider so that he/she can best manage your medications. People living with bipolar disorder who wish to become face important decisions. It is important to discuss the risks and benefits of treatment with your doctor and caregivers. [place] has been associated with an increased risk of Ebstein's anomaly, a heart valve defect. Even though data suggest that the risk of Ebstein's anomaly from first trimester use of lithium is very low, an ultrasound of the heart is recommended at 16 to 20 weeks of gestation. [place] levels should be monitored monthly in early and weekly near delivery. Do not stop taking lithium without first speaking to your health care provider. Discontinuing mood stabilizer medications during has been associated with a significant increase in symptom relapse. If an overdose occurs call your doctor or 911. You may need urgent medical care. You may also contact the poison control center at . A specific treatment to reverse the effects of lithium does not exist, but there are treatments to decrease the effects of the medication. Only a doctor can determine if you require treatment. Avoid drinking alcohol or using illegal drugs while you are taking lithium. They may decrease the benefits (e.g., worsen your condition) and increase adverse effects (e.g., sedation) of the medication. Avoid low sodium diets and dehydration because this can increase the risk of lithium toxicity. Avoid over the counter and prescription pain medications that contain nonsteroidal anti-inflammator y medications (NSAIDS) such as ibuprofen (Motrin, Advil) or naproxen (Aleve, Naprosyn) because these medications can increase the risk of toxicity from lithium. Avoid excessive intake of caffeinated beverages, such as coffee, tea, cola or energy drinks, since these may decrease levels of lithium and decrease effectiveness of the medication. Discontinuing caffeine use may increase lithium levels. Consult your health care provider before reducing or stopping caffeine use. What are the possible side effects of lithium? Common side effects Headache Nausea or vomiting Diarrhea Dizziness or drowsiness Changes in appetite Hand tremors Dry mouth Increased thirst Increased urination Thinning of hair or hair loss Acne-like rash Rare/Serious side effects Signs of lithium toxicity include severe nausea and vomiting, severe hand tremors, confusion, vision changes, and unsteadiness while standing or walking. These symptoms need to be addressed immediately with a medical doctor to ensure your lithium level is not dangerously high. In rare cases, lithium may lead to a reversible condition known as diabetes insipidus. If this occurs you would notice a significant increase in thirst and how much fluid you drink and how much you urinate. Talk to your doctor if you notice you are urinating more frequently than usual. Are There Any Risks For Taking [place] For Long Periods Of Time? Hypothyroidism (low levels of thyroid hormone) may occur with long-term lithium use. Rare kidney problems have been associated with long-term use of lithium. The risk increases with high levels of lithium. Your doctor will monitor your kidney function at routine check-ups to ensure this does not occur. Summary of Black Box Warnings [place] Toxicity [place] toxicity is closely related to lithium blood levels and can occur at doses close to therapeutic levels; lithium levels should be monitored closely when starting the medication or if individuals experience side effects of the medication. 2. Anxiety Therapy- see walk in clinic [place] discuss coping skills Buspar 10 mg three times a day Vistaril 25 mg up to 3x day PRN for anxiety and panic Propranolol 10 mg daily prn for anxiety and panic - helping anxiety educated on all rx and monitor B/P 3. Nicotine use- vaping Do not smoke. Nicotine and other chemicals in cigarettes and cigars can cause lung damage. Ask your healthcare provider for information if you currently smoke and need help to quit. E-cigarettes or smokeless tobacco still contain nicotine. Talk to your healthcare provider before you use these products. education on decrease to stopping nicotine products and stop smoking hotline given Quit - Yes [place] Tobacco Quitline Call a Smoking Quitline The [employer] [place]'s Smoking Quitline, (3-785-94O-QUIT) Smokefree.gov, which connects you with your State's Quitline, (2-991-PQQZAMI) Veterans Smoking Quitline, (0-894-BLXUQJA) 4. cannabis Cannabis Use Education Recommend decrease/stop cannabis use as it can negatively impact mood, motivation, anxiety, sleep, focus/concentrat ion/memory (vigilance, elasticity, processing and attention); can also contribute to development of psychosis. Recommend decrease/stop cannabis use as it may be negatively impacting mood, motivation, anxiety, sleep, focus; can also contribute to development of psychosis Cannabis/marijua na information: http__s://shreya.n ih.gov/publicati ons/drugfacts/ca nnabis-marijuana http__s://[employer].Given.to/ca onxbpe-xwl-ohoyd yef-uallwqjvs-ze hd/ 5. Passive suicidal thoughts no plans or intent denies SI/HI no active thoughts NO thoughts harm to self or others discuss go to nearest ER if have active thoughts, increase passive thoughts, plans or intent saftey plan discuss 988/911 discuss support system [place] added and educated Evidence suggests an active lifestyle and achieving and maintaining an ideal body weight (20-25 BMI) is optimal for health. Experts recommend at least 30 minutes of moderate to vigorous activity per day as tolerated, 5 days a week Eat healthy, including plenty of fresh fruits and vegetables daily. Strive to have 2/3 cup of your plate to be vegetables, fruits, whole grains and beans, while 1/3 or less should be an animal product. Choose fish and chicken and limit red meat and processed meats. Assess dietary pattern for daily intake of fruits, vegetables, and whole grains, as well as red and processed meats, alcohol, and processed foods or beverages with added fats and/or sugars. Assess timing of meals and snacking habits, portion size, frequency of eating out, and use of added fats and/or sugars to foods or beverages. All survivors should be encouraged to: Follow a predominantly nutrient-rich plant-based diet, including vegetables, fruit, and whole grains. Make informed choices about food to ensure variety and adequate nutrient intake. Limit consumption of red meat such as beef, pork, or valdez to no more than 18 ounces (cooked) per week. Eat processed meats such as ham, hot dogs, deli cuts, weeks, and sausage sparingly if at all. Limit consumption of fast foods and other processed foods that are high in fat, starches, or sugars such as chips, cookies, candy bars, desserts, processed baked goods, sugary cereals, and fried foods. Limit refined sugars to <6 tsp (25 g) for a 2000-calorie daily diet and <9 tsp (38 g) for a 3000-calorie daily diet. One medium cookie has about 2 tsp of sugar; a 12-oz can of a soft drink has about 10 tsp. Track calorie intake. Self-monitoring of food and beverage intake has been shown to be an effective strategy for weight management. Prolonged periods of fasting may impair adequate caloric and nutrient intake. Drink alcohol sparingly if at all. Lower levels of alcohol consumption are associated with a lower risk of cancer. For patients desiring further recommendations for dietary guidelines: Consider referral to a registered dietitian or brush polisher. The USDA approximate food plate volumes (http_s://www.Bringrs plate.gov) are: Vegetables and fruits should comprise half the volume of food on the plate Vegetables: 30% of plate; fruits 20% of plate Whole grains: 30% of plate Protein: 20% of plate Recommended sources of dietary components: Fat: plant sources such as olive or canola oil, avocados, seeds and nuts, and fatty fish Carbohydrates: fruits, vegetables, whole grains, and legumes Protein: poultry, fish, legumes, low-fat dairy foods, and nuts While the risks and benefits of soy foods for cancer survivors have been debated for many years, most studies to date show that moderate consumption of soy foods (up to 3 servings per day) are beneficial in promoting overall health and survival, with the strongest evidence existing for the prevention of lung cancer and reduction of breast cancer recurrence. Practice portion control. Make informed food choices through routine evaluation of food labels. Incorporate physical activity, particularly strength training, to assure optimal lean body mass (SPA-1). Track weight, diet, calories, and physical activity routines (eg, journaling, mobile phone apps). Limit alcohol intake to one drink per day or less for a woman and two drinks or less per day for a man. Avoid smoking! educated on all medications, benefits, side effects and risk, and educated on depression, anxiety, and ADHD, mood d/o and educated on compliance of medications, metabolic and movement d/o education appointment is, continue therapy discussion with patient about course of treatment and patient instructions. education on serotonin syndrome SSRI/SNRI side effects discussed including but not limited to, gastric upset, nausea, vomiting, diarrhea and/or constipation, weight changes, sexual side effects including loss of libido, increased suicidal thoughts/behavio rs in children and young adults, and serotonin syndrome. Second generation antipsychotics (SGAs) have metabolic syndrome issues with weight gain, increase in prolactin, increased waist circumference, increased lipids, and increased glucose. Thus routine monitoring of weight, metabolic labs, etc. is indicated. A general rank ordering of antipsychotics that have the greatest to the least risk of metabolic effects is olanzapine, quetiapine, risperidone, ziprasidone, and aripiprazole. However, weight gain can occur with all of these drugs and considerable variability exists among patients receiving the same drug regarding the risk of metabolic effects. Anti-psychotic agents not only increase the risk of metabolic disorder, they also increase the risk of CVA, akathisia, and movement disorders including EPS or tardive dyskinesia (more common with first generation antipsychotics) and more. Medication Management and Follow-Up - Plan: - Schedule follow-up appointments every 1-3 months to monitor the patient's response to the medication regimen. - Reinforce the importance of avoiding recreational drug use due to potential neurotoxicity and interactions with prescribed medications. 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 websites http_s://www.nim h.nih.gov/health /topics/mental-h ealth-medication s http_s://www.nam i.org/About-Ment al-Illness/Treat ments/Mental-Hea lth-Medications http_s://www.nam i.org/About-Ment al-Illness/Menta a-Ufbuos-Xmgmqup ons http_s://[employer]/evin fay/the-cogniti yu-devwsdus-qo-d epression#treatm ents http__s://www.ni .nih.gov/healt h/topics/mental- health-medicatio ns http__s://www.na mi.org/About-Men camelia-Illness/Marissa tments/Mental-He alth-Medications http_s://shreya.ni h.gov/publicatio ns/drugfacts/can nabis-marijuana http_s://www.[employer]/can iskip-ceq-mtdhmu iv-drbbrgryl-rbi d/ 07/02/2025 Marijuana use (ICD-10 - F12.90) Marijuana Use: Care Instructions material was published, Learning About Cannabis Use Disorder material was published, Marijuana Use: Care Instructions material was published, Learning About Cannabis Use Disorder material was published 1. Bipolar - increase depression Increase Abilify 10 mg at evening - educated on rx refer to therapy [facility] 2. Anxiety Therapy- see walk in clinic [facility] discuss coping skills discuss and educated on increase Buspar 10 mg three times a day Add Vistaril 25 mg up to 3x day PRN for anxiety and panic 3. Nicotine use- vaping Do not smoke. Nicotine and other chemicals in cigarettes and cigars can cause lung damage. Ask your healthcare provider for information if you currently smoke and need help to quit. E-cigarettes or smokeless tobacco still contain nicotine. Talk to your healthcare provider before you use these products. education on decrease to stopping nicotine products and stop smoking hotline given -Quit - Yes [place] Tobacco Quitline Call a Smoking Quitline The [employer] [place] Smoking Quitline, (8-818-82U-QUIT) Smokefree.gov, which connects you with your State's Quitline, (3-427-YANTIRQ) Veterans Smoking Quitline, (8-703-ETDNUUC) 4. cannabis Cannabis Use Education Recommend decrease/stop cannabis use as it can negatively impact mood, motivation, anxiety, sleep, focus/concentrat ion/memory (vigilance, elasticity, processing and attention); can also contribute to development of psychosis. Recommend decrease/stop cannabis use as it may be negatively impacting mood, motivation, anxiety, sleep, focus; can also contribute to development of psychosis Cannabis/marijua na information: http__s://shreya.n ih.gov/publicati ons/drugfacts/ca nnabis-marijuana http__s://[employer].Given.to/ca lpiqns-eqm-qdyou vul-jjtmlkzzk-hf hd/ Evidence suggests an active lifestyle and achieving and maintaining an ideal body weight (20-25 BMI) is optimal for health. Experts recommend at least 30 minutes of moderate to vigorous activity per day as tolerated, 5 days a week Eat healthy, including plenty of fresh fruits and vegetables daily. Strive to have 2/3 cup of your plate to be vegetables, fruits, whole grains and beans, while 1/3 or less should be an animal product. Choose fish and chicken and limit red meat and processed meats. Assess dietary pattern for daily intake of fruits, vegetables, and whole grains, as well as red and processed meats, alcohol, and processed foods or beverages with added fats and/or sugars. Assess timing of meals and snacking habits, portion size, frequency of eating out, and use of added fats and/or sugars to foods or beverages. All survivors should be encouraged to: Follow a predominantly nutrient-rich plant-based diet, including vegetables, fruit, and whole grains. Make informed choices about food to ensure variety and adequate nutrient intake. Limit consumption of red meat such as beef, pork, or valdez to no more than 18 ounces (cooked) per week. Eat processed meats such as ham, hot dogs, deli cuts, weeks, and sausage sparingly if at all. Limit consumption of fast foods and other processed foods that are high in fat, starches, or sugars such as chips, cookies, candy bars, desserts, processed baked goods, sugary cereals, and fried foods. Limit refined sugars to <6 tsp (25 g) for a 2000-calorie daily diet and <9 tsp (38 g) for a 3000-calorie daily diet. One medium cookie has about 2 tsp of sugar; a 12-oz can of a soft drink has about 10 tsp. Track calorie intake. Self-monitoring of food and beverage intake has been shown to be an effective strategy for weight management. Prolonged periods of fasting may impair adequate caloric and nutrient intake. Drink alcohol sparingly if at all. Lower levels of alcohol consumption are associated with a lower risk of cancer. For patients desiring further recommendations for dietary guidelines: Consider referral to a registered dietitian or brush polisher. The USDA approximate food plate volumes (http_s://www.Bringrs plate.gov) are: Vegetables and fruits should comprise half the volume of food on the plate Vegetables: 30% of plate; fruits 20% of plate Whole grains: 30% of plate Protein: 20% of plate Recommended sources of dietary components: Fat: plant sources such as olive or canola oil, avocados, seeds and nuts, and fatty fish Carbohydrates: fruits, vegetables, whole grains, and legumes Protein: poultry, fish, legumes, low-fat dairy foods, and nuts While the risks and benefits of soy foods for cancer survivors have been debated for many years, most studies to date show that moderate consumption of soy foods (up to 3 servings per day) are beneficial in promoting overall health and survival, with the strongest evidence existing for the prevention of lung cancer and reduction of breast cancer recurrence. Practice portion control. Make informed food choices through routine evaluation of food labels. Incorporate physical activity, particularly strength training, to assure optimal lean body mass (SPA-1). Track weight, diet, calories, and physical activity routines (eg, journaling, mobile phone apps). Limit alcohol intake to one drink per day or less for a woman and two drinks or less per day for a man. Avoid smoking! educated on all medications, benefits, side effects and risk, and educated on depression, anxiety, and ADHD, mood d/o and educated on compliance of medications, metabolic and movement d/o education appointment is, continue therapy discussion with patient about course of treatment and patient instructions. education on serotonin syndrome SSRI/SNRI side effects discussed including but not limited to, gastric upset, nausea, vomiting, diarrhea and/or constipation, weight changes, sexual side effects including loss of libido, increased suicidal thoughts/behavio rs in children and young adults, and serotonin syndrome. Second generation antipsychotics (SGAs) have metabolic syndrome issues with weight gain, increase in prolactin, increased waist circumference, increased lipids, and increased glucose. Thus routine monitoring of weight, metabolic labs, etc. is indicated. A general rank ordering of antipsychotics that have the greatest to the least risk of metabolic effects is olanzapine, quetiapine, risperidone, ziprasidone, and aripiprazole. However, weight gain can occur with all of these drugs and considerable variability exists among patients receiving the same drug regarding the risk of metabolic effects. Anti-psychotic agents not only increase the risk of metabolic disorder, they also increase the risk of CVA, akathisia, and movement disorders including EPS or tardive dyskinesia (more common with first generation antipsychotics) and more. Medication Management and Follow-Up - Plan: - Schedule follow-up appointments every 1-3 months to monitor the patient's response to the medication regimen. - Reinforce the importance of avoiding recreational drug use due to potential neurotoxicity and interactions with prescribed medications. 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 websites http_s://www.nim h.nih.gov/health /topics/mental-h ealth-medication s http_s://www.nam i.org/About-Ment al-Illness/Treat ments/Mental-Hea lth-Medications http_s://www.nam i.org/About-Ment al-Illness/Menta d-Gtxkvo-Ajaccia ons http_s://psychce [employer].com/depres sumeet/the-cogniti rq-ubpibfze-zg-d epression#treatm ents http__s://www.ni .nih.gov/healt h/topics/mental- health-medicatio ns http__s://www.na mi.org/About-Men camelia-Illness/Marissa tments/Mental-He alth-Medications http_s://shreya. h.gov/publicatio ns/drugfacts/can nabis-marijuana http_s://www.[employer]/can ojvnq-rbu-hsxmvd wi-usoqdgzmh-loz d/ 07/30/2025 Panic disorder (ICD-10 - F41.0) Panic Attacks: Care Instructions material was published 1. Bipolar depression Abilify 10 mg at evening - discuss and educated on [place] for depression, irritable and suicide prevention educated on rx refer to therapy [facility] Start [place] 300 mg ER AT BEDTIME educated on medication. [place] education [place] use reviewed. Risks include risks of toxicity, arrhythmias, cognitive impairment, changes in muscle coordination, weight gain, thyroid and parathyroid changes, polydipsia and polyuria, alopecia, tremor and teratogenicity ( defects). Recommend avoid in females (use contraception consistently). Routine lab monitoring may be required. Patient consented to treatment. Indications: acute erlin (euphoric erlin), bipolar prophylaxis, bipolar depression treatment or augmentation, unipolar depression as augmentation with antidepressants Average dose = I,500 mg/day, target serum level 0.8 [place] is known to reduce risk of suicide. Mechanism of action: inhibits inositol monophosphatase, interfering with 2nd messengers Nuisance Side Effects: sedation, cognitive difficulties, decreased creativity, dry mouth, tremor, increased appetite, weight gain, polydipsia, polyuria, nausea, diarrhea, acne, alopecia Serious Side Effects: Thyroid: hypothyroidism (5%), goiter (3%) Cardiac: decrease in cardiac conduction leading to sick sinus syndrome, blocks SA node Teratogenicity: Ebstein's anomaly 2 in 1,000 Renal: chronic renal insufficiency (after 10-20 years), acute renal failure, polyuria occurs in 50-70% [lithium antagonizes anti-diuretic hormone (ADH)], diabetes insipidus in 10% (treat with amiloride) Drug-drug interactions: increase in lithium: NSAIDs, JOSEPHINE inhibitors, angiotensin II antagonists If you are planning on becoming , notify your health care provider so that he/she can best manage your medications. People living with bipolar disorder who wish to become face important decisions. It is important to discuss the risks and benefits of treatment with your doctor and caregivers. [place] has been associated with an increased risk of Ebstein's anomaly, a heart valve defect. Even though data suggest that the risk of Ebstein's anomaly from first trimester use of lithium is very low, an ultrasound of the heart is recommended at 16 to 20 weeks of gestation. [place] levels should be monitored monthly in early and weekly near delivery. Do not stop taking lithium without first speaking to your health care provider. Discontinuing mood stabilizer medications during has been associated with a significant increase in symptom relapse. If an overdose occurs call your doctor or 911. You may need urgent medical care. You may also contact the poison control center at . A specific treatment to reverse the effects of lithium does not exist, but there are treatments to decrease the effects of the medication. Only a doctor can determine if you require treatment. Avoid drinking alcohol or using illegal drugs while you are taking lithium. They may decrease the benefits (e.g., worsen your condition) and increase adverse effects (e.g., sedation) of the medication. Avoid low sodium diets and dehydration because this can increase the risk of lithium toxicity. Avoid over the counter and prescription pain medications that contain nonsteroidal anti-inflammator y medications (NSAIDS) such as ibuprofen (Motrin, Advil) or naproxen (Aleve, Naprosyn) because these medications can increase the risk of toxicity from lithium. Avoid excessive intake of caffeinated beverages, such as coffee, tea, cola or energy drinks, since these may decrease levels of lithium and decrease effectiveness of the medication. Discontinuing caffeine use may increase lithium levels. Consult your health care provider before reducing or stopping caffeine use. What are the possible side effects of lithium? Common side effects Headache Nausea or vomiting Diarrhea Dizziness or drowsiness Changes in appetite Hand tremors Dry mouth Increased thirst Increased urination Thinning of hair or hair loss Acne-like rash Rare/Serious side effects Signs of lithium toxicity include severe nausea and vomiting, severe hand tremors, confusion, vision changes, and unsteadiness while standing or walking. These symptoms need to be addressed immediately with a medical doctor to ensure your lithium level is not dangerously high. In rare cases, lithium may lead to a reversible condition known as diabetes insipidus. If this occurs you would notice a significant increase in thirst and how much fluid you drink and how much you urinate. Talk to your doctor if you notice you are urinating more frequently than usual. Are There Any Risks For Taking [place] For Long Periods Of Time? Hypothyroidism (low levels of thyroid hormone) may occur with long-term lithium use. Rare kidney problems have been associated with long-term use of lithium. The risk increases with high levels of lithium. Your doctor will monitor your kidney function at routine check-ups to ensure this does not occur. Summary of Black Box Warnings [place] Toxicity [place] toxicity is closely related to lithium blood levels and can occur at doses close to therapeutic levels; lithium levels should be monitored closely when starting the medication or if individuals experience side effects of the medication. 2. Anxiety Therapy- see walk in clinic Akylie discuss coping skills Buspar 10 mg three times a day Vistaril 25 mg up to 3x day PRN for anxiety and panic Start Propranolol 10 mg daily prn for anxiety and panic educated on all rx and monitor B/P 3. Nicotine use- vaping Do not smoke. Nicotine and other chemicals in cigarettes and cigars can cause lung damage. Ask your healthcare provider for information if you currently smoke and need help to quit. E-cigarettes or smokeless tobacco still contain nicotine. Talk to your healthcare provider before you use these products. education on decrease to stopping nicotine products and stop smoking hotline given -Quit - Yes [place] Tobacco Quitline Call a Smoking Quitline The [employer] [place]'s Smoking Quitline, (6-134-17V-QUIT) Smokefree.gov, which connects you with your State's Quitline, (4-620-RWPVTIF) Veterans Smoking Quitline, (4-724-TLUJOVQ) 4. cannabis Cannabis Use Education Recommend decrease/stop cannabis use as it can negatively impact mood, motivation, anxiety, sleep, focus/concentrat ion/memory (vigilance, elasticity, processing and attention); can also contribute to development of psychosis. Recommend decrease/stop cannabis use as it may be negatively impacting mood, motivation, anxiety, sleep, focus; can also contribute to development of psychosis Cannabis/marijua na information: http__s://shreya.n ih.gov/publicati ons/drugfacts/ca nnabis-marijuana http__s://www.[employer]/ca pcgjqg-vwl-byyfs hnj-knncssmjj-ok hd/ 5. Passive suicidal thoughts no plans or intent denies SI/HI no active thoughts NO thoughts harm to self or others discuss go to nearest ER if have active thoughts, increase passive thoughts, plans or intent saftey plan discuss [phone] discuss support system [place] added and educated Evidence suggests an active lifestyle and achieving and maintaining an ideal body weight (20-25 BMI) is optimal for health. Experts recommend at least 30 minutes of moderate to vigorous activity per day as tolerated, 5 days a week Eat healthy, including plenty of fresh fruits and vegetables daily. Strive to have 2/3 cup of your plate to be vegetables, fruits, whole grains and beans, while 1/3 or less should be an animal product. Choose fish and chicken and limit red meat and processed meats. Assess dietary pattern for daily intake of fruits, vegetables, and whole grains, as well as red and processed meats, alcohol, and processed foods or beverages with added fats and/or sugars. Assess timing of meals and snacking habits, portion size, frequency of eating out, and use of added fats and/or sugars to foods or beverages. All survivors should be encouraged to: Follow a predominantly nutrient-rich plant-based diet, including vegetables, fruit, and whole grains. Make informed choices about food to ensure variety and adequate nutrient intake. Limit consumption of red meat such as beef, pork, or valdez to no more than 18 ounces (cooked) per week. Eat processed meats such as ham, hot dogs, deli cuts, weeks, and sausage sparingly if at all. Limit consumption of fast foods and other processed foods that are high in fat, starches, or sugars such as chips, cookies, candy bars, desserts, processed baked goods, sugary cereals, and fried foods. Limit refined sugars to <6 tsp (25 g) for a 2000-calorie daily diet and <9 tsp (38 g) for a 3000-calorie daily diet. One medium cookie has about 2 tsp of sugar; a 12-oz can of a soft drink has about 10 tsp. Track calorie intake. Self-monitoring of food and beverage intake has been shown to be an effective strategy for weight management. Prolonged periods of fasting may impair adequate caloric and nutrient intake. Drink alcohol sparingly if at all. Lower levels of alcohol consumption are associated with a lower risk of cancer. For patients desiring further recommendations for dietary guidelines: Consider referral to a registered dietitian or brush polisher. The USDA approximate food plate volumes (http_s://www.Bringrs plate.gov) are: Vegetables and fruits should comprise half the volume of food on the plate Vegetables: 30% of plate; fruits 20% of plate Whole grains: 30% of plate Protein: 20% of plate Recommended sources of dietary components: Fat: plant sources such as olive or canola oil, avocados, seeds and nuts, and fatty fish Carbohydrates: fruits, vegetables, whole grains, and legumes Protein: poultry, fish, legumes, low-fat dairy foods, and nuts While the risks and benefits of soy foods for cancer survivors have been debated for many years, most studies to date show that moderate consumption of soy foods (up to 3 servings per day) are beneficial in promoting overall health and survival, with the strongest evidence existing for the prevention of lung cancer and reduction of breast cancer recurrence. Practice portion control. Make informed food choices through routine evaluation of food labels. Incorporate physical activity, particularly strength training, to assure optimal lean body mass (SPA-1). Track weight, diet, calories, and physical activity routines (eg, journaling, mobile phone apps). Limit alcohol intake to one drink per day or less for a woman and two drinks or less per day for a man. Avoid smoking! educated on all medications, benefits, side effects and risk, and educated on depression, anxiety, and ADHD, mood d/o and educated on compliance of medications, metabolic and movement d/o education appointment is, continue therapy discussion with patient about course of treatment and patient instructions. education on serotonin syndrome SSRI/SNRI side effects discussed including but not limited to, gastric upset, nausea, vomiting, diarrhea and/or constipation, weight changes, sexual side effects including loss of libido, increased suicidal thoughts/behavio rs in children and young adults, and serotonin syndrome. Second generation antipsychotics (SGAs) have metabolic syndrome issues with weight gain, increase in prolactin, increased waist circumference, increased lipids, and increased glucose. Thus routine monitoring of weight, metabolic labs, etc. is indicated. A general rank ordering of antipsychotics that have the greatest to the least risk of metabolic effects is olanzapine, quetiapine, risperidone, ziprasidone, and aripiprazole. However, weight gain can occur with all of these drugs and considerable variability exists among patients receiving the same drug regarding the risk of metabolic effects. Anti-psychotic agents not only increase the risk of metabolic disorder, they also increase the risk of CVA, akathisia, and movement disorders including EPS or tardive dyskinesia (more common with first generation antipsychotics) and more. Medication Management and Follow-Up - Plan: - Schedule follow-up appointments every 1-3 months to monitor the patient's response to the medication regimen. - Reinforce the importance of avoiding recreational drug use due to potential neurotoxicity and interactions with prescribed medications. 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 websites http_s://www.nim h.nih.gov/health /topics/mental-h ealth-medication s http_s://www.nam i.org/About-Ment al-Illness/Treat ments/Mental-Hea lth-Medications http_s://www.nam i.org/About-Ment al-Illness/Menta l-Fpjqzw-Axymlhj ons http_s://psychce SOAMAI/deprilya sumeet/the-cogniti mq-pamoueyl-gs-d epression#treatm ents http__s://www.ni .nih.gov/healt h/topics/mental- health-medicatio ns http__s://www.na mi.org/About-Men camelia-Illness/Marissa tments/Mental-He alth-Medications http_s://shreya.ni h.gov/publicatio ns/drugfacts/can nabis-marijuana http_s://www.[employer]/can usomb-kdo-tbdokk ib-mbxbpptlc-qrv d/ 04/09/2025 Marijuana use (ICD-10 - F12.90) Marijuana Use: Care Instructions material was published, Learning About Cannabis Use Disorder material was published, Marijuana Use: Care Instructions material was published, Learning About Cannabis Use Disorder material was published 1. Bipolar Abilify 5 mg at bedtime - improved mood educated on rx refer to therapy [facility] 2. Anxiety Therapy- see walk in clinic Kaylie discuss coping skills discuss and educated on increase Buspar 10 mg twice a day 3. Nicotine use- vaping Do not smoke. Nicotine and other chemicals in cigarettes and cigars can cause lung damage. Ask your healthcare provider for information if you currently smoke and need help to quit. E-cigarettes or smokeless tobacco still contain nicotine. Talk to your healthcare provider before you use these products. education on decrease to stopping nicotine products and stop smoking hotline given -Quit - Yes [place] Tobacco Quitline Call a Smoking Quitline The [employer] [place]'s Smoking Quitline, (4-021-41P-QUIT) Smokefree.gov, which connects you with your State's Quitline, (5-903-EGHWAQN) Veterans Smoking Quitline, (2-631-OJGCLZI) 4. cannabis Cannabis Use Education Recommend decrease/stop cannabis use as it can negatively impact mood, motivation, anxiety, sleep, focus/concentrat ion/memory (vigilance, elasticity, processing and attention); can also contribute to development of psychosis. Recommend decrease/stop cannabis use as it may be negatively impacting mood, motivation, anxiety, sleep, focus; can also contribute to development of psychosis Cannabis/marijua na information: http__s://shreya.n ih.gov/publicati ons/drugfacts/ca nnabis-marijuana http__s://www.[employer].com/ca tlpujx-axs-nxdst tkg-irzzbjcit-ci hd/ educated on all medications, benefits, side effects and risk, and educated on depression, anxiety, and ADHD, mood d/o and educated on compliance of medications, metabolic and movement d/o education appointment is, continue therapy discussion with patient about course of treatment and patient instructions. education on serotonin syndrome SSRI/SNRI side effects discussed including but not limited to, gastric upset, nausea, vomiting, diarrhea and/or constipation, weight changes, sexual side effects including loss of libido, increased suicidal thoughts/behavio rs in children and young adults, and serotonin syndrome. Second generation antipsychotics (SGAs) have metabolic syndrome issues with weight gain, increase in prolactin, increased waist circumference, increased lipids, and increased glucose. Thus routine monitoring of weight, metabolic labs, etc. is indicated. A general rank ordering of antipsychotics that have the greatest to the least risk of metabolic effects is olanzapine, quetiapine, risperidone, ziprasidone, and aripiprazole. However, weight gain can occur with all of these drugs and considerable variability exists among patients receiving the same drug regarding the risk of metabolic effects. Anti-psychotic agents not only increase the risk of metabolic disorder, they also increase the risk of CVA, akathisia, and movement disorders including EPS or tardive dyskinesia (more common with first generation antipsychotics) and more. Medication Management and Follow-Up - Plan: - Schedule follow-up appointments every 1-3 months to monitor the patient's response to the medication regimen. - Reinforce the importance of avoiding recreational drug use due to potential neurotoxicity and interactions with prescribed medications. 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 websites http_s://www.[facility].nih.gov/health /topics/mental-h ealth-medication s http_s://www.nam i.org/About-Ment al-Illness/Treat ments/Mental-Hea lth-Medications http_s://www.nam i.org/About-Ment al-Illness/Menta o-Ktgxwr-Ehevnjd ons http_s://psychce [employer].com/evin fay/the-cogniti xv-ltpaeojb-zg-d epression#treatm ents http__s://www.[facility].nih.gov/healt h/topics/mental- health-medicatio ns http__s://www.na mi.org/About-Men camelia-Illness/Marissa tments/Mental-He alth-Medications http_s://shreya.ni h.gov/publicatio ns/drugfacts/can nabis-marijuana http_s://www.[employer]/can jgwqj-hrc-wxrlxw ia-ayizewgpv-nol d/ 03/08/2025 BEKA (generalized anxiety disorder) (ICD-10 - F41.1) Generalized Anxiety Disorder: Care Instructions material was published, Learning About Generalized Anxiety Disorder material was published, Learning About Anxiety Disorders material was published, Learning About Generalized Anxiety Disorder material was published, Generalized Anxiety Disorder: Care Instructions material was published, Learning About Anxiety Disorders material was published 1. Bipolar Abilify 5 mg at bedtime - improved mood educated on rx refer to therapy [facility] 2. Anxiety Therapy- will see walk in clinic [facility] discuss coping skills discuss and educated on Buspar 5 mg twice a day 3. Nicotine use- vaping Do not smoke. Nicotine and other chemicals in cigarettes and cigars can cause lung damage. Ask your healthcare provider for information if you currently smoke and need help to quit. E-cigarettes or smokeless tobacco still contain nicotine. Talk to your healthcare provider before you use these products. education on decrease to stopping nicotine products and stop smoking hotline given Quit - Yes [place] Tobacco Quitline Call a Smoking Quitline The [employer] [place]'s Smoking Quitline, (5-147-90Y-QUIT) Smokefree.gov, which connects you with your State's Quitline, (0-472-XELWJOX) [facility] Smoking Quitline, (9-090-JFIONWD) 4. cannabis Cannabis Use Education Recommend decrease/stop cannabis use as it can negatively impact mood, motivation, anxiety, sleep, focus/concentrat ion/memory (vigilance, elasticity, processing and attention); can also contribute to development of psychosis. Recommend decrease/stop cannabis use as it may be negatively impacting mood, motivation, anxiety, sleep, focus; can also contribute to development of psychosis Cannabis/marijua na information: http__s://shreya.n ih.gov/publicati ons/drugfacts/ca nnabis-marijuana http__s://www.[employer]/ca sstifo-lou-suune gaw-qqzdocrho-sb hd/ educated on all medications, benefits, side effects and risk, and educated on depression, anxiety, and ADHD, mood d/o and educated on compliance of medications, metabolic and movement d/o education appointment is, continue therapy discussion with patient about course of treatment and patient instructions. education on serotonin syndrome SSRI/SNRI side effects discussed including but not limited to, gastric upset, nausea, vomiting, diarrhea and/or constipation, weight changes, sexual side effects including loss of libido, increased suicidal thoughts/behavio rs in children and young adults, and serotonin syndrome. Second generation antipsychotics (SGAs) have metabolic syndrome issues with weight gain, increase in prolactin, increased waist circumference, increased lipids, and increased glucose. Thus routine monitoring of weight, metabolic labs, etc. is indicated. A general rank ordering of antipsychotics that have the greatest to the least risk of metabolic effects is olanzapine, quetiapine, risperidone, ziprasidone, and aripiprazole. However, weight gain can occur with all of these drugs and considerable variability exists among patients receiving the same drug regarding the risk of metabolic effects. Anti-psychotic agents not only increase the risk of metabolic disorder, they also increase the risk of CVA, akathisia, and movement disorders including EPS or tardive dyskinesia (more common with first generation antipsychotics) and more. Medication Management and Follow-Up - Plan: - Schedule follow-up appointments every 1-3 months to monitor the patient's response to the medication regimen. - Reinforce the importance of avoiding recreational drug use due to potential neurotoxicity and interactions with prescribed medications. 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 websites http_s://www.nim h.nih.gov/health /topics/mental-h ealth-medication s http_s://www.nam i.org/About-Ment al-Illness/Treat ments/Mental-Hea lth-Medications http_s://www.nam i.org/About-Ment al-Illness/Menta g-Bavohg-Fogdpft ons http_s://[employer]/depres sumeet/the-cogniti bf-cdcyzelq-tr-d epression#treatm ents http__s://www.ni .nih.gov/healt h/topics/mental- health-medicatio ns http__s://www.na mi.org/About-Men camelia-Illness/Marissa tments/Mental-He alth-Medications http_s://shreya. h.gov/publicatio ns/drugfacts/can nabis-marijuana http_s://www.[employer]/can yqqkr-ops-wzvfqg gx-ykclrzdwl-nsf d/ 02/19/2025 Marijuana use (ICD-10 - F12.90) Marijuana Use: Care Instructions material was published, Learning About Cannabis Use Disorder material was published 1. Bipolar Stop Latuda 20 mg - r/t [place] on insurance Add Abilify 5 mg at bedtime - Bipolar s/s and anger educated on rx refer to therapy [facility] 2. Anxiety Therapy discuss coping skills 3. Nicotine use- vaping 4. cannabis Cannabis Use Education Recommend decrease/stop cannabis use as it can negatively impact mood, motivation, anxiety, sleep, focus/concentrat ion/memory (vigilance, elasticity, processing and attention); can also contribute to development of psychosis. Recommend decrease/stop cannabis use as it may be negatively impacting mood, motivation, anxiety, sleep, focus; can also contribute to development of psychosis Cannabis/marijua na information: http__s://shreya.n ih.gov/publicati ons/drugfacts/ca nnabis-marijuana http__s://www.[employer]/ca qwfolb-yjj-hklda phr-fkulblmdq-rp hd/ educated on all medications, benefits, side effects and risk, and educated on depression, anxiety, and ADHD, mood d/o and educated on compliance of medications, metabolic and movement d/o education appointment is, continue therapy discussion with patient about course of treatment and patient instructions. education on serotonin syndrome SSRI/SNRI side effects discussed including but not limited to, gastric upset, nausea, vomiting, diarrhea and/or constipation, weight changes, sexual side effects including loss of libido, increased suicidal thoughts/behavio rs in children and young adults, and serotonin syndrome. Second generation antipsychotics (SGAs) have metabolic syndrome issues with weight gain, increase in prolactin, increased waist circumference, increased lipids, and increased glucose. Thus routine monitoring of weight, metabolic labs, etc. is indicated. A general rank ordering of antipsychotics that have the greatest to the least risk of metabolic effects is olanzapine, quetiapine, risperidone, ziprasidone, and aripiprazole. However, weight gain can occur with all of these drugs and considerable variability exists among patients receiving the same drug regarding the risk of metabolic effects. Anti-psychotic agents not only increase the risk of metabolic disorder, they also increase the risk of CVA, akathisia, and movement disorders including EPS or tardive dyskinesia (more common with first generation antipsychotics) and more. Medication Management and Follow-Up - Plan: - Schedule follow-up appointments every 1-3 months to monitor the patient's response to the medication regimen. - Reinforce the importance of avoiding recreational drug use due to potential neurotoxicity and interactions with prescribed medications. websites http_s://www.nim h.nih.gov/health /topics/mental-h ealth-medication s http_s://www.nam i.org/About-Ment al-Illness/Treat ments/Mental-Hea lth-Medications http_s://www.nam i.org/About-Ment al-Illness/Menta r-Gfijhf-Ulwetde ons http_s://psychce [employer].com/depres sumeet/the-cogniti ek-bwppnmey-ar-d epression#treatm ents http__s://www.ni .nih.gov/healt h/topics/mental- health-medicatio ns http__s://www.na nd.org/About-Men camelia-Illness/Marissa tments/Mental-He alth-Medications http_s://shreya.ni h.gov/publicatio ns/drugfacts/can nabis-marijuana http_s://www.[employer]/can kfpse-rua-ohdrvh ir-rsswewmsz-wrv d/ 03/08/2025 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) Plan: -Decrease irritability -Decrease social anxiety in order to be more present with others and to go to grocery store independently without fear -Increase energy -Decrease hair pulling -Increase self esteem and sense of belonging 03/08/2025 Encounter for screening for depression (ICD-10 - Z13.31) Plan: -Decrease irritability -Decrease social anxiety in order to be more present with others and to go to grocery store independently without fear -Increase energy -Decrease hair pulling -Increase self esteem and sense of belonging 03/08/2025 Marijuana use (ICD-10 - F12.90) Marijuana Use: Care Instructions material was published, Learning About Cannabis Use Disorder material was published, Marijuana Use: Care Instructions material was published, Learning About Cannabis Use Disorder material was published 1. Bipolar Abilify 5 mg at bedtime - improved mood educated on rx refer to therapy [facility]I 2. Anxiety Therapy- will see walk in clinic [facility]lie discuss coping skills discuss and educated on Buspar 5 mg twice a day 3. Nicotine use- vaping Do not smoke. Nicotine and other chemicals in cigarettes and cigars can cause lung damage. Ask your healthcare provider for information if you currently smoke and need help to quit. E-cigarettes or smokeless tobacco still contain nicotine. Talk to your healthcare provider before you use these products. education on decrease to stopping nicotine products and stop smoking hotline given -Quit - Yes [place] Tobacco Quitline Call a Smoking Quitline The [employer] [place]'s Smoking Quitline, (1-908-78A-QUIT) Smokefree.gov, which connects you with your State's Quitline, (1-245-JBMFTIW) Veterans Smoking Quitline, (3-974-HRGJDFG) 4. cannabis Cannabis Use Education Recommend decrease/stop cannabis use as it can negatively impact mood, motivation, anxiety, sleep, focus/concentrat ion/memory (vigilance, elasticity, processing and attention); can also contribute to development of psychosis. Recommend decrease/stop cannabis use as it may be negatively impacting mood, motivation, anxiety, sleep, focus; can also contribute to development of psychosis Cannabis/marijua na information: http__s://shreya.n ih.gov/publicati ons/drugfacts/ca nnabis-marijuana http__s://www.Given.to/ca jaaepp-rls-hhusa try-zebvzrvnr-kf hd/ educated on all medications, benefits, side effects and risk, and educated on depression, anxiety, and ADHD, mood d/o and educated on compliance of medications, metabolic and movement d/o education appointment is, continue therapy discussion with patient about course of treatment and patient instructions. education on serotonin syndrome SSRI/SNRI side effects discussed including but not limited to, gastric upset, nausea, vomiting, diarrhea and/or constipation, weight changes, sexual side effects including loss of libido, increased suicidal thoughts/behavio rs in children and young adults, and serotonin syndrome. Second generation antipsychotics (SGAs) have metabolic syndrome issues with weight gain, increase in prolactin, increased waist circumference, increased lipids, and increased glucose. Thus routine monitoring of weight, metabolic labs, etc. is indicated. A general rank ordering of antipsychotics that have the greatest to the least risk of metabolic effects is olanzapine, quetiapine, risperidone, ziprasidone, and aripiprazole. However, weight gain can occur with all of these drugs and considerable variability exists among patients receiving the same drug regarding the risk of metabolic effects. Anti-psychotic agents not only increase the risk of metabolic disorder, they also increase the risk of CVA, akathisia, and movement disorders including EPS or tardive dyskinesia (more common with first generation antipsychotics) and more. Medication Management and Follow-Up - Plan: - Schedule follow-up appointments every 1-3 months to monitor the patient's response to the medication regimen. - Reinforce the importance of avoiding recreational drug use due to potential neurotoxicity and interactions with prescribed medications. 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 websites http_s://www.[facility].nih.gov/health /topics/mental-h ealth-medication s http_s://www.nam i.org/About-Ment al-Illness/Treat ments/Mental-Hea lth-Medications http_s://www.nam i.org/About-Ment al-Illness/Menta q-Rxuudx-Rdhqody ons http_s://[employer]/depres sumeet/the-cogniti fe-xcejefyh-bm-d epression#treatm ents http__s://www.[facility].nih.gov/healt h/topics/mental- health-medicatio ns http__s://www.na mi.org/About-Men camelia-Illness/Marissa tments/Mental-He alth-Medications http_s://shreya.ni h.gov/publicatio ns/drugfacts/can nabis-marijuana http_s://www.[employer]/can ejsiz-amo-trptge ov-tsjrexydd-fmb d/ 07/02/2025 Panic disorder (ICD-10 - F41.0) 1. Bipolar - increase depression Increase Abilify 10 mg at evening - educated on rx refer to therapy [facility]I 2. Anxiety Therapy- see walk in clinic [facility]lie discuss coping skills discuss and educated on increase Buspar 10 mg three times a day Add Vistaril 25 mg up to 3x day PRN for anxiety and panic 3. Nicotine use- vaping Do not smoke. Nicotine and other chemicals in cigarettes and cigars can cause lung damage. Ask your healthcare provider for information if you currently smoke and need help to quit. E-cigarettes or smokeless tobacco still contain nicotine. Talk to your healthcare provider before you use these products. education on decrease to stopping nicotine products and stop smoking hotline given -Quit - Yes [place] Tobacco Quitline Call a Smoking Quitline The [employer] [place]'s Smoking Quitline, (2-675-33C-QUIT) Smokefree.gov, which connects you with your State's Quitline, (1-565-OKFIAVK) Veterans Smoking Quitline, (5-884-XXPUOWS) 4. cannabis Cannabis Use Education Recommend decrease/stop cannabis use as it can negatively impact mood, motivation, anxiety, sleep, focus/concentrat ion/memory (vigilance, elasticity, processing and attention); can also contribute to development of psychosis. Recommend decrease/stop cannabis use as it may be negatively impacting mood, motivation, anxiety, sleep, focus; can also contribute to development of psychosis Cannabis/marijua na information: http__s://shreya.n ih.gov/publicati ons/drugfacts/ca nnabis-marijuana http__s://[employer].Given.to/ca srndak-yzj-tispn vhh-qixzwcebm-gv hd/ Evidence suggests an active lifestyle and achieving and maintaining an ideal body weight (20-25 BMI) is optimal for health. Experts recommend at least 30 minutes of moderate to vigorous activity per day as tolerated, 5 days a week Eat healthy, including plenty of fresh fruits and vegetables daily. Strive to have 2/3 cup of your plate to be vegetables, fruits, whole grains and beans, while 1/3 or less should be an animal product. Choose fish and chicken and limit red meat and processed meats. Assess dietary pattern for daily intake of fruits, vegetables, and whole grains, as well as red and processed meats, alcohol, and processed foods or beverages with added fats and/or sugars. Assess timing of meals and snacking habits, portion size, frequency of eating out, and use of added fats and/or sugars to foods or beverages. All survivors should be encouraged to: Follow a predominantly nutrient-rich plant-based diet, including vegetables, fruit, and whole grains. Make informed choices about food to ensure variety and adequate nutrient intake. Limit consumption of red meat such as beef, pork, or valdez to no more than 18 ounces (cooked) per week. Eat processed meats such as ham, hot dogs, deli cuts, weeks, and sausage sparingly if at all. Limit consumption of fast foods and other processed foods that are high in fat, starches, or sugars such as chips, cookies, candy bars, desserts, processed baked goods, sugary cereals, and fried foods. Limit refined sugars to <6 tsp (25 g) for a 2000-calorie daily diet and <9 tsp (38 g) for a 3000-calorie daily diet. One medium cookie has about 2 tsp of sugar; a 12-oz can of a soft drink has about 10 tsp. Track calorie intake. Self-monitoring of food and beverage intake has been shown to be an effective strategy for weight management. Prolonged periods of fasting may impair adequate caloric and nutrient intake. Drink alcohol sparingly if at all. Lower levels of alcohol consumption are associated with a lower risk of cancer. For patients desiring further recommendations for dietary guidelines: Consider referral to a registered dietitian or brush polisher. The [employer] approximate food plate volumes (http_s://www.[employer] plate.gov) are: Vegetables and fruits should comprise half the volume of food on the plate Vegetables: 30% of plate; fruits 20% of plate Whole grains: 30% of plate Protein: 20% of plate Recommended sources of dietary components: Fat: plant sources such as olive or canola oil, avocados, seeds and nuts, and fatty fish Carbohydrates: fruits, vegetables, whole grains, and legumes Protein: poultry, fish, legumes, low-fat dairy foods, and nuts While the risks and benefits of soy foods for cancer survivors have been debated for many years, most studies to date show that moderate consumption of soy foods (up to 3 servings per day) are beneficial in promoting overall health and survival, with the strongest evidence existing for the prevention of lung cancer and reduction of breast cancer recurrence. Practice portion control. Make informed food choices through routine evaluation of food labels. Incorporate physical activity, particularly strength training, to assure optimal lean body mass (SPA-1). Track weight, diet, calories, and physical activity routines (eg, journaling, mobile phone apps). Limit alcohol intake to one drink per day or less for a woman and two drinks or less per day for a man. Avoid smoking! educated on all medications, benefits, side effects and risk, and educated on depression, anxiety, and ADHD, mood d/o and educated on compliance of medications, metabolic and movement d/o education appointment is, continue therapy discussion with patient about course of treatment and patient instructions. education on serotonin syndrome SSRI/SNRI side effects discussed including but not limited to, gastric upset, nausea, vomiting, diarrhea and/or constipation, weight changes, sexual side effects including loss of libido, increased suicidal thoughts/behavio rs in children and young adults, and serotonin syndrome. Second generation antipsychotics (SGAs) have metabolic syndrome issues with weight gain, increase in prolactin, increased waist circumference, increased lipids, and increased glucose. Thus routine monitoring of weight, metabolic labs, etc. is indicated. A general rank ordering of antipsychotics that have the greatest to the least risk of metabolic effects is olanzapine, quetiapine, risperidone, ziprasidone, and aripiprazole. However, weight gain can occur with all of these drugs and considerable variability exists among patients receiving the same drug regarding the risk of metabolic effects. Anti-psychotic agents not only increase the risk of metabolic disorder, they also increase the risk of CVA, akathisia, and movement disorders including EPS or tardive dyskinesia (more common with first generation antipsychotics) and more. Medication Management and Follow-Up - Plan: - Schedule follow-up appointments every 1-3 months to monitor the patient's response to the medication regimen. - Reinforce the importance of avoiding recreational drug use due to potential neurotoxicity and interactions with prescribed medications. 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 websites http_s://www.nim h.nih.gov/health /topics/mental-h ealth-medication s http_s://www.nam i.org/About-Ment al-Illness/Treat ments/Mental-Hea lth-Medications http_s://www.nam i.org/About-Ment al-Illness/Menta l-Owiqfe-Dpgvnsz ons http_s://psychce [employer]/deprilya sumeet/the-cogniti xw-ijexhrve-mf-d epression#treatm ents http__s://www.ni .nih.gov/healt h/topics/mental- health-medicatio ns http__s://www.na mi.org/About-Men camelia-Illness/Marissa tments/Mental-He alth-Medications http_s://shreya.ni h.gov/publicatio ns/drugfacts/can nabis-marijuana http_s://www.[employer]/can tqkai-ezz-ycghsv yb-izaxycibe-lkl d/ 07/30/2025 Encounter for test, result unknown (ICD-10 - Z32.00) 1. Bipolar depression Abilify 10 mg at evening - discuss and educated on [place] for depression, irritable and suicide prevention educated on rx refer to therapy [facility] Start [place] 300 mg ER AT BEDTIME educated on medication. [place] education [place] use reviewed. Risks include risks of toxicity, arrhythmias, cognitive impairment, changes in muscle coordination, weight gain, thyroid and parathyroid changes, polydipsia and polyuria, alopecia, tremor and teratogenicity ( defects). Recommend avoid in females (use contraception consistently). Routine lab monitoring may be required. Patient consented to treatment. Indications: acute erlin (euphoric erlin), bipolar prophylaxis, bipolar depression treatment or augmentation, unipolar depression as augmentation with antidepressants Average dose = I,500 mg/day, target serum level 0.8 [place] is known to reduce risk of suicide. Mechanism of action: inhibits inositol monophosphatase, interfering with 2nd messengers Nuisance Side Effects: sedation, cognitive difficulties, decreased creativity, dry mouth, tremor, increased appetite, weight gain, polydipsia, polyuria, nausea, diarrhea, acne, alopecia Serious Side Effects: Thyroid: hypothyroidism (5%), goiter (3%) Cardiac: decrease in cardiac conduction leading to sick sinus syndrome, blocks SA node Teratogenicity: Ebstein's anomaly 2 in 1,000 Renal: chronic renal insufficiency (after 10-20 years), acute renal failure, polyuria occurs in 50-70% [lithium antagonizes anti-diuretic hormone (ADH)], diabetes insipidus in 10% (treat with amiloride) Drug-drug interactions: increase in lithium: NSAIDs, JOSEPHINE inhibitors, angiotensin II antagonists If you are planning on becoming , notify your health care provider so that he/she can best manage your medications. People living with bipolar disorder who wish to become face important decisions. It is important to discuss the risks and benefits of treatment with your doctor and caregivers. [place] has been associated with an increased risk of Ebstein's anomaly, a heart valve defect. Even though data suggest that the risk of Ebstein's anomaly from first trimester use of lithium is very low, an ultrasound of the heart is recommended at 16 to 20 weeks of gestation. [place] levels should be monitored monthly in early and weekly near delivery. Do not stop taking lithium without first speaking to your health care provider. Discontinuing mood stabilizer medications during has been associated with a significant increase in symptom relapse. If an overdose occurs call your doctor or 911. You may need urgent medical care. You may also contact the poison control center at . A specific treatment to reverse the effects of lithium does not exist, but there are treatments to decrease the effects of the medication. Only a doctor can determine if you require treatment. Avoid drinking alcohol or using illegal drugs while you are taking lithium. They may decrease the benefits (e.g., worsen your condition) and increase adverse effects (e.g., sedation) of the medication. Avoid low sodium diets and dehydration because this can increase the risk of lithium toxicity. Avoid over the counter and prescription pain medications that contain nonsteroidal anti-inflammator y medications (NSAIDS) such as ibuprofen (Motrin, Advil) or naproxen (Aleve, Naprosyn) because these medications can increase the risk of toxicity from lithium. Avoid excessive intake of caffeinated beverages, such as coffee, tea, cola or energy drinks, since these may decrease levels of lithium and decrease effectiveness of the medication. Discontinuing caffeine use may increase lithium levels. Consult your health care provider before reducing or stopping caffeine use. What are the possible side effects of lithium? Common side effects Headache Nausea or vomiting Diarrhea Dizziness or drowsiness Changes in appetite Hand tremors Dry mouth Increased thirst Increased urination Thinning of hair or hair loss Acne-like rash Rare/Serious side effects Signs of lithium toxicity include severe nausea and vomiting, severe hand tremors, confusion, vision changes, and unsteadiness while standing or walking. These symptoms need to be addressed immediately with a medical doctor to ensure your lithium level is not dangerously high. In rare cases, lithium may lead to a reversible condition known as diabetes insipidus. If this occurs you would notice a significant increase in thirst and how much fluid you drink and how much you urinate. Talk to your doctor if you notice you are urinating more frequently than usual. Are There Any Risks For Taking [place] For Long Periods Of Time? Hypothyroidism (low levels of thyroid hormone) may occur with long-term lithium use. Rare kidney problems have been associated with long-term use of lithium. The risk increases with high levels of lithium. Your doctor will monitor your kidney function at routine check-ups to ensure this does not occur. Summary of Black Box Warnings [place] Toxicity [place] toxicity is closely related to lithium blood levels and can occur at doses close to therapeutic levels; lithium levels should be monitored closely when starting the medication or if individuals experience side effects of the medication. 2. Anxiety Therapy- see walk in clinic [facility] discuss coping skills Buspar 10 mg three times a day Vistaril 25 mg up to 3x day PRN for anxiety and panic Start Propranolol 10 mg daily prn for anxiety and panic educated on all rx and monitor B/P 3. Nicotine use- vaping Do not smoke. Nicotine and other chemicals in cigarettes and cigars can cause lung damage. Ask your healthcare provider for information if you currently smoke and need help to quit. E-cigarettes or smokeless tobacco still contain nicotine. Talk to your healthcare provider before you use these products. education on decrease to stopping nicotine products and stop smoking hotline given Quit - Yes [place] Tobacco Quitline Call a Smoking Quitline The [employer] [place]'s Smoking Quitline, (8-187-26H-QUIT) Smokefree.gov, which connects you with your State's Quitline, (9-588-IYTBCVB) Veterans Smoking Quitline, (4-630-COVDKCE) 4. cannabis Cannabis Use Education Recommend decrease/stop cannabis use as it can negatively impact mood, motivation, anxiety, sleep, focus/concentrat ion/memory (vigilance, elasticity, processing and attention); can also contribute to development of psychosis. Recommend decrease/stop cannabis use as it may be negatively impacting mood, motivation, anxiety, sleep, focus; can also contribute to development of psychosis Cannabis/marijua na information: http__s://shreya.n ih.gov/publicati ons/drugfacts/[place] nnabis-marijuana http__s://www.Given.to/ca feians-ozo-xzcjp qtv-kteczjgnr-ay hd/ 5. Passive suicidal thoughts no plans or intent denies SI/HI no active thoughts NO thoughts harm to self or others discuss go to nearest ER if have active thoughts, increase passive thoughts, plans or intent saftey plan discuss [phone]/911 discuss support system [place] added and educated Evidence suggests an active lifestyle and achieving and maintaining an ideal body weight (20-25 BMI) is optimal for health. Experts recommend at least 30 minutes of moderate to vigorous activity per day as tolerated, 5 days a week Eat healthy, including plenty of fresh fruits and vegetables daily. Strive to have 2/3 cup of your plate to be vegetables, fruits, whole grains and beans, while 1/3 or less should be an animal product. Choose fish and chicken and limit red meat and processed meats. Assess dietary pattern for daily intake of fruits, vegetables, and whole grains, as well as red and processed meats, alcohol, and processed foods or beverages with added fats and/or sugars. Assess timing of meals and snacking habits, portion size, frequency of eating out, and use of added fats and/or sugars to foods or beverages. All survivors should be encouraged to: Follow a predominantly nutrient-rich plant-based diet, including vegetables, fruit, and whole grains. Make informed choices about food to ensure variety and adequate nutrient intake. Limit consumption of red meat such as beef, pork, or valdez to no more than 18 ounces (cooked) per week. Eat processed meats such as ham, hot dogs, deli cuts, weeks, and sausage sparingly if at all. Limit consumption of fast foods and other processed foods that are high in fat, starches, or sugars such as chips, cookies, candy bars, desserts, processed baked goods, sugary cereals, and fried foods. Limit refined sugars to <6 tsp (25 g) for a 2000-calorie daily diet and <9 tsp (38 g) for a 3000-calorie daily diet. One medium cookie has about 2 tsp of sugar; a 12-oz can of a soft drink has about 10 tsp. Track calorie intake. Self-monitoring of food and beverage intake has been shown to be an effective strategy for weight management. Prolonged periods of fasting may impair adequate caloric and nutrient intake. Drink alcohol sparingly if at all. Lower levels of alcohol consumption are associated with a lower risk of cancer. For patients desiring further recommendations for dietary guidelines: Consider referral to a registered dietitian or brush polisher. The USDA approximate food plate volumes (http_s://www.[place].gov) are: Vegetables and fruits should comprise half the volume of food on the plate Vegetables: 30% of plate; fruits 20% of plate Whole grains: 30% of plate Protein: 20% of plate Recommended sources of dietary components: Fat: plant sources such as olive or canola oil, avocados, seeds and nuts, and fatty fish Carbohydrates: fruits, vegetables, whole grains, and legumes Protein: poultry, fish, legumes, low-fat dairy foods, and nuts While the risks and benefits of soy foods for cancer survivors have been debated for many years, most studies to date show that moderate consumption of soy foods (up to 3 servings per day) are beneficial in promoting overall health and survival, with the strongest evidence existing for the prevention of lung cancer and reduction of breast cancer recurrence. Practice portion control. Make informed food choices through routine evaluation of food labels. Incorporate physical activity, particularly strength training, to assure optimal lean body mass (SPA-1). Track weight, diet, calories, and physical activity routines (eg, journaling, mobile phone apps). Limit alcohol intake to one drink per day or less for a woman and two drinks or less per day for a man. Avoid smoking! educated on all medications, benefits, side effects and risk, and educated on depression, anxiety, and ADHD, mood d/o and educated on compliance of medications, metabolic and movement d/o education appointment is, continue therapy discussion with patient about course of treatment and patient instructions. education on serotonin syndrome SSRI/SNRI side effects discussed including but not limited to, gastric upset, nausea, vomiting, diarrhea and/or constipation, weight changes, sexual side effects including loss of libido, increased suicidal thoughts/behavio rs in children and young adults, and serotonin syndrome. Second generation antipsychotics (SGAs) have metabolic syndrome issues with weight gain, increase in prolactin, increased waist circumference, increased lipids, and increased glucose. Thus routine monitoring of weight, metabolic labs, etc. is indicated. A general rank ordering of antipsychotics that have the greatest to the least risk of metabolic effects is olanzapine, quetiapine, risperidone, ziprasidone, and aripiprazole. However, weight gain can occur with all of these drugs and considerable variability exists among patients receiving the same drug regarding the risk of metabolic effects. Anti-psychotic agents not only increase the risk of metabolic disorder, they also increase the risk of CVA, akathisia, and movement disorders including EPS or tardive dyskinesia (more common with first generation antipsychotics) and more. Medication Management and Follow-Up - Plan: - Schedule follow-up appointments every 1-3 months to monitor the patient's response to the medication regimen. - Reinforce the importance of avoiding recreational drug use due to potential neurotoxicity and interactions with prescribed medications. 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 websites http_s://www.[facility] h.nih.gov/health /topics/mental-h ealth-medication s http_s://www.nam i.org/About-Ment al-Illness/Treat ments/Mental-Hea lth-Medications http_s://www.nam i.org/About-Ment al-Illness/Menta y-Xqeavp-Mrqzmow ons http_s://psychce [employer].com/depres sumeet/the-cogniti gd-fygrwqdt-sy-d epression#treatm ents http__s://www.ni .nih.gov/healt h/topics/mental- health-medicatio ns http__s://www.na nd.org/About-Men camelia-Illness/Marissa tments/Mental-He alth-Medications http_s://shreya.ni h.gov/publicatio ns/drugfacts/can nabis-marijuana http_s://www.[employer]/can syeri-dfr-mlswzy rw-xxqmzwvzu-qjl d/ 08/19/2025 Suicidal thoughts (ICD-10 - R45.851) Suicidal Thoughts in a Family Member: Care Instructions material was published, Suicidal Thoughts and Behavior: Care Instructions material was published, Learning About Making a Suicide Safety Plan material was published 1. Bipolar depression Abilify 10 mg at evening - discuss and educated on [place] for depression, irritable and suicide prevention educated on rx refer to therapy LEXI- plan to see walk in clinic therapy today Increase [place] 450 mg ER AT BEDTIME for Bipolar s/s and help passive thoughts educated on medication. [place] education [place] use reviewed. Risks include risks of toxicity, arrhythmias, cognitive impairment, changes in muscle coordination, weight gain, thyroid and parathyroid changes, polydipsia and polyuria, alopecia, tremor and teratogenicity ( defects). Recommend avoid in females (use contraception consistently). Routine lab monitoring may be required. Patient consented to treatment. Indications: acute erlin (euphoric erlin), bipolar prophylaxis, bipolar depression treatment or augmentation, unipolar depression as augmentation with antidepressants Average dose = I,500 mg/day, target serum level 0.8 [place] is known to reduce risk of suicide. Mechanism of action: inhibits inositol monophosphatase, interfering with 2nd messengers Nuisance Side Effects: sedation, cognitive difficulties, decreased creativity, dry mouth, tremor, increased appetite, weight gain, polydipsia, polyuria, nausea, diarrhea, acne, alopecia Serious Side Effects: Thyroid: hypothyroidism (5%), goiter (3%) Cardiac: decrease in cardiac conduction leading to sick sinus syndrome, blocks SA node Teratogenicity: Ebstein's anomaly 2 in 1,000 Renal: chronic renal insufficiency (after 10-20 years), acute renal failure, polyuria occurs in 50-70% [lithium antagonizes anti-diuretic hormone (ADH)], diabetes insipidus in 10% (treat with amiloride) Drug-drug interactions: increase in lithium: NSAIDs, JOSEPHINE inhibitors, angiotensin II antagonists If you are planning on becoming , notify your health care provider so that he/she can best manage your medications. People living with bipolar disorder who wish to become face important decisions. It is important to discuss the risks and benefits of treatment with your doctor and caregivers. [place] has been associated with an increased risk of Ebstein's anomaly, a heart valve defect. Even though data suggest that the risk of Ebstein's anomaly from first trimester use of lithium is very low, an ultrasound of the heart is recommended at 16 to 20 weeks of gestation. [place] levels should be monitored monthly in early and weekly near delivery. Do not stop taking lithium without first speaking to your health care provider. Discontinuing mood stabilizer medications during has been associated with a significant increase in symptom relapse. If an overdose occurs call your doctor or 911. You may need urgent medical care. You may also contact the poison control center at . A specific treatment to reverse the effects of lithium does not exist, but there are treatments to decrease the effects of the medication. Only a doctor can determine if you require treatment. Avoid drinking alcohol or using illegal drugs while you are taking lithium. They may decrease the benefits (e.g., worsen your condition) and increase adverse effects (e.g., sedation) of the medication. Avoid low sodium diets and dehydration because this can increase the risk of lithium toxicity. Avoid over the counter and prescription pain medications that contain nonsteroidal anti-inflammator y medications (NSAIDS) such as ibuprofen (Motrin, Advil) or naproxen (Aleve, Naprosyn) because these medications can increase the risk of toxicity from lithium. Avoid excessive intake of caffeinated beverages, such as coffee, tea, cola or energy drinks, since these may decrease levels of lithium and decrease effectiveness of the medication. Discontinuing caffeine use may increase lithium levels. Consult your health care provider before reducing or stopping caffeine use. What are the possible side effects of lithium? Common side effects Headache Nausea or vomiting Diarrhea Dizziness or drowsiness Changes in appetite Hand tremors Dry mouth Increased thirst Increased urination Thinning of hair or hair loss Acne-like rash Rare/Serious side effects Signs of lithium toxicity include severe nausea and vomiting, severe hand tremors, confusion, vision changes, and unsteadiness while standing or walking. These symptoms need to be addressed immediately with a medical doctor to ensure your lithium level is not dangerously high. In rare cases, lithium may lead to a reversible condition known as diabetes insipidus. If this occurs you would notice a significant increase in thirst and how much fluid you drink and how much you urinate. Talk to your doctor if you notice you are urinating more frequently than usual. Are There Any Risks For Taking [place] For Long Periods Of Time? Hypothyroidism (low levels of thyroid hormone) may occur with long-term lithium use. Rare kidney problems have been associated with long-term use of lithium. The risk increases with high levels of lithium. Your doctor will monitor your kidney function at routine check-ups to ensure this does not occur. Summary of Black Box Warnings [place] Toxicity [place] toxicity is closely related to lithium blood levels and can occur at doses close to therapeutic levels; lithium levels should be monitored closely when starting the medication or if individuals experience side effects of the medication. 2. Anxiety Therapy- see walk in clinic [facility] discuss coping skills Buspar 10 mg three times a day Vistaril 25 mg up to 3x day PRN for anxiety and panic Propranolol 10 mg daily prn for anxiety and panic - helping anxiety educated on all rx and monitor B/P 3. Nicotine use- vaping Do not smoke. Nicotine and other chemicals in cigarettes and cigars can cause lung damage. Ask your healthcare provider for information if you currently smoke and need help to quit. E-cigarettes or smokeless tobacco still contain nicotine. Talk to your healthcare provider before you use these products. education on decrease to stopping nicotine products and stop smoking hotline given Quit - Yes [place] Tobacco Quitline Call a Smoking Quitline The [employer] [facility] [place]'s Smoking Quitline, (5-566-83K-QUIT) Smokefree.gov, which connects you with your [facility]'s Quitline, (8-730-USCUVLM) [facility] Smoking Quitline, (7-610-FAFYBQK) 4. cannabis Cannabis Use Education Recommend decrease/stop cannabis use as it can negatively impact mood, motivation, anxiety, sleep, focus/concentrat ion/memory (vigilance, elasticity, processing and attention); can also contribute to development of psychosis. Recommend decrease/stop cannabis use as it may be negatively impacting mood, motivation, anxiety, sleep, focus; can also contribute to development of psychosis Cannabis/marijua na information: http__s://shreya.n ih.gov/publicati ons/drugfacts/[place] nnabis-marijuana http__s://www.ad ileanatandrewmag.[employer]/ca dtixtj-sps-mzlba mzs-mgzuziwea-qn hd/ 5. Passive suicidal thoughts no plans or intent denies SI/HI no active thoughts NO thoughts harm to self or others discuss go to nearest ER if have active thoughts, increase passive thoughts, plans or intent saftey plan discuss [phone]/911 discuss support system [place] added and educated Evidence suggests an active lifestyle and achieving and maintaining an ideal body weight (20-25 BMI) is optimal for health. Experts recommend at least 30 minutes of moderate to vigorous activity per day as tolerated, 5 days a week Eat healthy, including plenty of fresh fruits and vegetables daily. Strive to have 2/3 cup of your plate to be vegetables, fruits, whole grains and beans, while 1/3 or less should be an animal product. Choose fish and chicken and limit red meat and processed meats. Assess dietary pattern for daily intake of fruits, vegetables, and whole grains, as well as red and processed meats, alcohol, and processed foods or beverages with added fats and/or sugars. Assess timing of meals and snacking habits, portion size, frequency of eating out, and use of added fats and/or sugars to foods or beverages. All survivors should be encouraged to: Follow a predominantly nutrient-rich plant-based diet, including vegetables, fruit, and whole grains. Make informed choices about food to ensure variety and adequate nutrient intake. Limit consumption of red meat such as beef, pork, or valdez to no more than 18 ounces (cooked) per week. Eat processed meats such as ham, hot dogs, deli cuts, weeks, and sausage sparingly if at all. Limit consumption of fast foods and other processed foods that are high in fat, starches, or sugars such as chips, cookies, candy bars, desserts, processed baked goods, sugary cereals, and fried foods. Limit refined sugars to <6 tsp (25 g) for a 2000-calorie daily diet and <9 tsp (38 g) for a 3000-calorie daily diet. One medium cookie has about 2 tsp of sugar; a 12-oz can of a soft drink has about 10 tsp. Track calorie intake. Self-monitoring of food and beverage intake has been shown to be an effective strategy for weight management. Prolonged periods of fasting may impair adequate caloric and nutrient intake. Drink alcohol sparingly if at all. Lower levels of alcohol consumption are associated with a lower risk of cancer. For patients desiring further recommendations for dietary guidelines: Consider referral to a registered dietitian or brush polisher. The USDA approximate food plate volumes (http_s://www.Bringrs plate.gov) are: Vegetables and fruits should comprise half the volume of food on the plate Vegetables: 30% of plate; fruits 20% of plate Whole grains: 30% of plate Protein: 20% of plate Recommended sources of dietary components: Fat: plant sources such as olive or canola oil, avocados, seeds and nuts, and fatty fish Carbohydrates: fruits, vegetables, whole grains, and legumes Protein: poultry, fish, legumes, low-fat dairy foods, and nuts While the risks and benefits of soy foods for cancer survivors have been debated for many years, most studies to date show that moderate consumption of soy foods (up to 3 servings per day) are beneficial in promoting overall health and survival, with the strongest evidence existing for the prevention of lung cancer and reduction of breast cancer recurrence. Practice portion control. Make informed food choices through routine evaluation of food labels. Incorporate physical activity, particularly strength training, to assure optimal lean body mass (SPA-1). Track weight, diet, calories, and physical activity routines (eg, journaling, mobile phone apps). Limit alcohol intake to one drink per day or less for a woman and two drinks or less per day for a man. Avoid smoking! educated on all medications, benefits, side effects and risk, and educated on depression, anxiety, and ADHD, mood d/o and educated on compliance of medications, metabolic and movement d/o education appointment is, continue therapy discussion with patient about course of treatment and patient instructions. education on serotonin syndrome SSRI/SNRI side effects discussed including but not limited to, gastric upset, nausea, vomiting, diarrhea and/or constipation, weight changes, sexual side effects including loss of libido, increased suicidal thoughts/behavio rs in children and young adults, and serotonin syndrome. Second generation antipsychotics (SGAs) have metabolic syndrome issues with weight gain, increase in prolactin, increased waist circumference, increased lipids, and increased glucose. Thus routine monitoring of weight, metabolic labs, etc. is indicated. A general rank ordering of antipsychotics that have the greatest to the least risk of metabolic effects is olanzapine, quetiapine, risperidone, ziprasidone, and aripiprazole. However, weight gain can occur with all of these drugs and considerable variability exists among patients receiving the same drug regarding the risk of metabolic effects. Anti-psychotic agents not only increase the risk of metabolic disorder, they also increase the risk of CVA, akathisia, and movement disorders including EPS or tardive dyskinesia (more common with first generation antipsychotics) and more. Medication Management and Follow-Up - Plan: - Schedule follow-up appointments every 1-3 months to monitor the patient's response to the medication regimen. - Reinforce the importance of avoiding recreational drug use due to potential neurotoxicity and interactions with prescribed medications. 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 websites http_s://www.nim h.nih.gov/health /topics/mental-h ealth-medication s http_s://www.nam i.org/About-Ment al-Illness/Treat ments/Mental-Hea lth-Medications http_s://www.nam i.org/About-Ment al-Illness/Menta l-Vmgsgw-Rfkhqcf ons http_s://psychce [employer].com/deprilya sumeet/the-cogniti jv-bucovqqr-fu-d epression#treatm ents http__s://www.ni .nih.gov/healt h/topics/mental- health-medicatio ns http__s://www.na mi.org/About-Men camelia-Illness/Marissa tments/Mental-He alth-Medications http_s://shreya.ni h.gov/publicatio ns/drugfacts/can nabis-marijuana http_s://www.[employer]/can ecroe-ukf-elhdjz gd-xsfovltmo-iqk d/ 09/17/2025 Suicidal thoughts (ICD-10 - R45.851) Suicidal Thoughts in a Family Member: Care Instructions material was published, Suicidal Thoughts and Behavior: Care Instructions material was published, Learning About Making a Suicide Safety Plan material was published 1. Bipolar depression - improved Abilify 10 mg at evening - discuss and educated on [place] for depression, irritable and suicide prevention educated on rx refer to therapy [facility]I- plan to see walk in clinic therapy today [place] 450 mg ER AT BEDTIME for Bipolar s/s and help passive thoughts- improved educated on medication. [place] education [place] use reviewed. Risks include risks of toxicity, arrhythmias, cognitive impairment, changes in muscle coordination, weight gain, thyroid and parathyroid changes, polydipsia and polyuria, alopecia, tremor and teratogenicity ( defects). Recommend avoid in females (use contraception consistently). Routine lab monitoring may be required. Patient consented to treatment. Indications: acute erlin (euphoric erlin), bipolar prophylaxis, bipolar depression treatment or augmentation, unipolar depression as augmentation with antidepressants Average dose = I,500 mg/day, target serum level 0.8 [place] is known to reduce risk of suicide. Mechanism of action: inhibits inositol monophosphatase, interfering with 2nd messengers Nuisance Side Effects: sedation, cognitive difficulties, decreased creativity, dry mouth, tremor, increased appetite, weight gain, polydipsia, polyuria, nausea, diarrhea, acne, alopecia Serious Side Effects: Thyroid: hypothyroidism (5%), goiter (3%) Cardiac: decrease in cardiac conduction leading to sick sinus syndrome, blocks SA node Teratogenicity: Ebstein's anomaly 2 in 1,000 Renal: chronic renal insufficiency (after 10-20 years), acute renal failure, polyuria occurs in 50-70% [lithium antagonizes anti-diuretic hormone (ADH)], diabetes insipidus in 10% (treat with amiloride) Drug-drug interactions: increase in lithium: NSAIDs, JOSEPHINE inhibitors, angiotensin II antagonists If you are planning on becoming , notify your health care provider so that he/she can best manage your medications. People living with bipolar disorder who wish to become face important decisions. It is important to discuss the risks and benefits of treatment with your doctor and caregivers. [place] has been associated with an increased risk of Ebstein's anomaly, a heart valve defect. Even though data suggest that the risk of Ebstein's anomaly from first trimester use of lithium is very low, an ultrasound of the heart is recommended at 16 to 20 weeks of gestation. [place] levels should be monitored monthly in early and weekly near delivery. Do not stop taking lithium without first speaking to your health care provider. Discontinuing mood stabilizer medications during has been associated with a significant increase in symptom relapse. If an overdose occurs call your doctor or 911. You may need urgent medical care. You may also contact the poison control center at . A specific treatment to reverse the effects of lithium does not exist, but there are treatments to decrease the effects of the medication. Only a doctor can determine if you require treatment. Avoid drinking alcohol or using illegal drugs while you are taking lithium. They may decrease the benefits (e.g., worsen your condition) and increase adverse effects (e.g., sedation) of the medication. Avoid low sodium diets and dehydration because this can increase the risk of lithium toxicity. Avoid over the counter and prescription pain medications that contain nonsteroidal anti-inflammator y medications (NSAIDS) such as ibuprofen (Motrin, Advil) or naproxen (Aleve, Naprosyn) because these medications can increase the risk of toxicity from lithium. Avoid excessive intake of caffeinated beverages, such as coffee, tea, cola or energy drinks, since these may decrease levels of lithium and decrease effectiveness of the medication. Discontinuing caffeine use may increase lithium levels. Consult your health care provider before reducing or stopping caffeine use. What are the possible side effects of lithium? Common side effects Headache Nausea or vomiting Diarrhea Dizziness or drowsiness Changes in appetite Hand tremors Dry mouth Increased thirst Increased urination Thinning of hair or hair loss Acne-like rash Rare/Serious side effects Signs of lithium toxicity include severe nausea and vomiting, severe hand tremors, confusion, vision changes, and unsteadiness while standing or walking. These symptoms need to be addressed immediately with a medical doctor to ensure your lithium level is not dangerously high. In rare cases, lithium may lead to a reversible condition known as diabetes insipidus. If this occurs you would notice a significant increase in thirst and how much fluid you drink and how much you urinate. Talk to your doctor if you notice you are urinating more frequently than usual. Are There Any Risks For Taking [place] For Long Periods Of Time? Hypothyroidism (low levels of thyroid hormone) may occur with long-term lithium use. Rare kidney problems have been associated with long-term use of lithium. The risk increases with high levels of lithium. Your doctor will monitor your kidney function at routine check-ups to ensure this does not occur. Summary of Black Box Warnings [place] Toxicity [place] toxicity is closely related to lithium blood levels and can occur at doses close to therapeutic levels; lithium levels should be monitored closely when starting the medication or if individuals experience side effects of the medication. 2. Anxiety Therapy- see walk in clinic [facility] discuss coping skills Buspar 10 mg three times a day Vistaril 25 mg up to 3x day PRN for anxiety and panic - educated patient to take rx three times a day to help anxiety and panic Propranolol 10 mg daily prn for anxiety and panic - helping anxiety educated on all rx and monitor B/P 3. Nicotine use- vaping Do not smoke. Nicotine and other chemicals in cigarettes and cigars can cause lung damage. Ask your healthcare provider for information if you currently smoke and need help to quit. E-cigarettes or smokeless tobacco still contain nicotine. Talk to your healthcare provider before you use these products. education on decrease to stopping nicotine products and stop smoking hotline given -Quit - Yes [place] Tobacco Quitline Call a Smoking Quitline The [employer] [place]'s Smoking Quitline, (4-723-54G-QUIT) Smokefree.gov, which connects you with your State's Quitline, (3-576-LDCYBOC) Veterans Smoking Quitline, (4-218-IVJLYQO) 4. cannabis Cannabis Use Education Recommend decrease/stop cannabis use as it can negatively impact mood, motivation, anxiety, sleep, focus/concentrat ion/memory (vigilance, elasticity, processing and attention); can also contribute to development of psychosis. Recommend decrease/stop cannabis use as it may be negatively impacting mood, motivation, anxiety, sleep, focus; can also contribute to development of psychosis Cannabis/marijua na information: http__s://shreya.[place].gov/publicati ons/drugfacts/ca nnabis-marijuana http__s://www.[employer]/ca cbnulp-gyd-ugojp pav-vqyzjsghh-pa hd/ 5. Passive suicidal thoughts - improved no passive thoughts no plans or intent denies SI/HI no active thoughts NO thoughts harm to self or others discuss go to nearest ER if have active thoughts, increase passive thoughts, plans or intent saftey plan discuss [id number] discuss support system [place] added and educated 6. ADHD symptoms Creyos scheduled discuss non stimulates related to cannabis use Evidence suggests an active lifestyle and achieving and maintaining an ideal body weight (20-25 BMI) is optimal for health. Experts recommend at least 30 minutes of moderate to vigorous activity per day as tolerated, 5 days a week Eat healthy, including plenty of fresh fruits and vegetables daily. Strive to have 2/3 cup of your plate to be vegetables, fruits, whole grains and beans, while 1/3 or less should be an animal product. Choose fish and chicken and limit red meat and processed meats. Assess dietary pattern for daily intake of fruits, vegetables, and whole grains, as well as red and processed meats, alcohol, and processed foods or beverages with added fats and/or sugars. Assess timing of meals and snacking habits, portion size, frequency of eating out, and use of added fats and/or sugars to foods or beverages. All survivors should be encouraged to: Follow a predominantly nutrient-rich plant-based diet, including vegetables, fruit, and whole grains. Make informed choices about food to ensure variety and adequate nutrient intake. Limit consumption of red meat such as beef, pork, or valdez to no more than 18 ounces (cooked) per week. Eat processed meats such as ham, hot dogs, deli cuts, weeks, and sausage sparingly if at all. Limit consumption of fast foods and other processed foods that are high in fat, starches, or sugars such as chips, cookies, candy bars, desserts, processed baked goods, sugary cereals, and fried foods. Limit refined sugars to <6 tsp (25 g) for a 2000-calorie daily diet and <9 tsp (38 g) for a 3000-calorie daily diet. One medium cookie has about 2 tsp of sugar; a 12-oz can of a soft drink has about 10 tsp. Track calorie intake. Self-monitoring of food and beverage intake has been shown to be an effective strategy for weight management. Prolonged periods of fasting may impair adequate caloric and nutrient intake. Drink alcohol sparingly if at all. Lower levels of alcohol consumption are associated with a lower risk of cancer. For patients desiring further recommendations for dietary guidelines: Consider referral to a registered dietitian or brush polisher. The USDA approximate food plate volumes (http_s://www.Bringrs plate.gov) are: Vegetables and fruits should comprise half the volume of food on the plate Vegetables: 30% of plate; fruits 20% of plate Whole grains: 30% of plate Protein: 20% of plate Recommended sources of dietary components: Fat: plant sources such as olive or canola oil, avocados, seeds and nuts, and fatty fish Carbohydrates: fruits, vegetables, whole grains, and legumes Protein: poultry, fish, legumes, low-fat dairy foods, and nuts While the risks and benefits of soy foods for cancer survivors have been debated for many years, most studies to date show that moderate consumption of soy foods (up to 3 servings per day) are beneficial in promoting overall health and survival, with the strongest evidence existing for the prevention of lung cancer and reduction of breast cancer recurrence. Practice portion control. Make informed food choices through routine evaluation of food labels. Incorporate physical activity, particularly strength training, to assure optimal lean body mass (SPA-1). Track weight, diet, calories, and physical activity routines (eg, journaling, mobile phone apps). Limit alcohol intake to one drink per day or less for a woman and two drinks or less per day for a man. Avoid smoking! educated on all medications, benefits, side effects and risk, and educated on depression, anxiety, and ADHD, mood d/o and educated on compliance of medications, metabolic and movement d/o education appointment is, continue therapy discussion with patient about course of treatment and patient instructions. education on serotonin syndrome SSRI/SNRI side effects discussed including but not limited to, gastric upset, nausea, vomiting, diarrhea and/or constipation, weight changes, sexual side effects including loss of libido, increased suicidal thoughts/behavio rs in children and young adults, and serotonin syndrome. Second generation antipsychotics (SGAs) have metabolic syndrome issues with weight gain, increase in prolactin, increased waist circumference, increased lipids, and increased glucose. Thus routine monitoring of weight, metabolic labs, etc. is indicated. A general rank ordering of antipsychotics that have the greatest to the least risk of metabolic effects is olanzapine, quetiapine, risperidone, ziprasidone, and aripiprazole. However, weight gain can occur with all of these drugs and considerable variability exists among patients receiving the same drug regarding the risk of metabolic effects. Anti-psychotic agents not only increase the risk of metabolic disorder, they also increase the risk of CVA, akathisia, and movement disorders including EPS or tardive dyskinesia (more common with first generation antipsychotics) and more. Medication Management and Follow-Up - Plan: - Schedule follow-up appointments every 1-3 months to monitor the patient's response to the medication regimen. - Reinforce the importance of avoiding recreational drug use due to potential neurotoxicity and interactions with prescribed medications. 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 websites http_s://www.nim h.nih.gov/health /topics/mental-h ealth-medication s http_s://www.nam i.org/About-Ment al-Illness/Treat ments/Mental-Hea lth-Medications http_s://www.nam i.org/About-Ment al-Illness/Menta n-Gwbfmn-Hizztec ons http_s://psychce [employer].com/deprilya sumeet/the-cogniti gf-lhdhhqrx-on-d epression#treatm ents http__s://www.ni .nih.gov/healt h/topics/mental- health-medicatio ns http__s://www.na mi.org/About-Men camelia-Illness/Marissa tments/Mental-He alth-Medications http_s://shreya.ni h.gov/publicatio ns/drugfacts/can nabis-marijuana http_s://www.[employer]/can kttui-jvu-xhdlus gb-yjnmykoct-afx d/ 09/17/2025 ADHD (attention deficit hyperactivity disorder), combined type (ICD-10 - F90.2) 1. Bipolar depression - improved Abilify 10 mg at evening - discuss and educated on [place] for depression, irritable and suicide prevention educated on rx refer to therapy LEXI- plan to see walk in clinic therapy today [place] 450 mg ER AT BEDTIME for Bipolar s/s and help passive thoughts- improved educated on medication. [place] education [place] use reviewed. Risks include risks of toxicity, arrhythmias, cognitive impairment, changes in muscle coordination, weight gain, thyroid and parathyroid changes, polydipsia and polyuria, alopecia, tremor and teratogenicity ( defects). Recommend avoid in females (use contraception consistently). Routine lab monitoring may be required. Patient consented to treatment. Indications: acute erlin (euphoric erlin), bipolar prophylaxis, bipolar depression treatment or augmentation, unipolar depression as augmentation with antidepressants Average dose = I,500 mg/day, target serum level 0.8 [place] is known to reduce risk of suicide. Mechanism of action: inhibits inositol monophosphatase, interfering with 2nd messengers Nuisance Side Effects: sedation, cognitive difficulties, decreased creativity, dry mouth, tremor, increased appetite, weight gain, polydipsia, polyuria, nausea, diarrhea, acne, alopecia Serious Side Effects: Thyroid: hypothyroidism (5%), goiter (3%) Cardiac: decrease in cardiac conduction leading to sick sinus syndrome, blocks SA node Teratogenicity: Ebstein's anomaly 2 in 1,000 Renal: chronic renal insufficiency (after 10-20 years), acute renal failure, polyuria occurs in 50-70% [lithium antagonizes anti-diuretic hormone (ADH)], diabetes insipidus in 10% (treat with amiloride) Drug-drug interactions: increase in lithium: NSAIDs, JOSEPHINE inhibitors, angiotensin II antagonists If you are planning on becoming , notify your health care provider so that he/she can best manage your medications. People living with bipolar disorder who wish to become face important decisions. It is important to discuss the risks and benefits of treatment with your doctor and caregivers. [place] has been associated with an increased risk of Ebstein's anomaly, a heart valve defect. Even though data suggest that the risk of Ebstein's anomaly from first trimester use of lithium is very low, an ultrasound of the heart is recommended at 16 to 20 weeks of gestation. [place] levels should be monitored monthly in early and weekly near delivery. Do not stop taking lithium without first speaking to your health care provider. Discontinuing mood stabilizer medications during has been associated with a significant increase in symptom relapse. If an overdose occurs call your doctor or 911. You may need urgent medical care. You may also contact the poison control center at . A specific treatment to reverse the effects of lithium does not exist, but there are treatments to decrease the effects of the medication. Only a doctor can determine if you require treatment. Avoid drinking alcohol or using illegal drugs while you are taking lithium. They may decrease the benefits (e.g., worsen your condition) and increase adverse effects (e.g., sedation) of the medication. Avoid low sodium diets and dehydration because this can increase the risk of lithium toxicity. Avoid over the counter and prescription pain medications that contain nonsteroidal anti-inflammator y medications (NSAIDS) such as ibuprofen (Motrin, Advil) or naproxen (Aleve, Naprosyn) because these medications can increase the risk of toxicity from lithium. Avoid excessive intake of caffeinated beverages, such as coffee, tea, cola or energy drinks, since these may decrease levels of lithium and decrease effectiveness of the medication. Discontinuing caffeine use may increase lithium levels. Consult your health care provider before reducing or stopping caffeine use. What are the possible side effects of lithium? Common side effects Headache Nausea or vomiting Diarrhea Dizziness or drowsiness Changes in appetite Hand tremors Dry mouth Increased thirst Increased urination Thinning of hair or hair loss Acne-like rash Rare/Serious side effects Signs of lithium toxicity include severe nausea and vomiting, severe hand tremors, confusion, vision changes, and unsteadiness while standing or walking. These symptoms need to be addressed immediately with a medical doctor to ensure your lithium level is not dangerously high. In rare cases, lithium may lead to a reversible condition known as diabetes insipidus. If this occurs you would notice a significant increase in thirst and how much fluid you drink and how much you urinate. Talk to your doctor if you notice you are urinating more frequently than usual. Are There Any Risks For Taking [place] For Long Periods Of Time? Hypothyroidism (low levels of thyroid hormone) may occur with long-term lithium use. Rare kidney problems have been associated with long-term use of lithium. The risk increases with high levels of lithium. Your doctor will monitor your kidney function at routine check-ups to ensure this does not occur. Summary of Black Box Warnings [place] Toxicity [place] toxicity is closely related to lithium blood levels and can occur at doses close to therapeutic levels; lithium levels should be monitored closely when starting the medication or if individuals experience side effects of the medication. 2. Anxiety Therapy- see walk in clinic [facility] discuss coping skills Buspar 10 mg three times a day Vistaril 25 mg up to 3x day PRN for anxiety and panic - educated patient to take rx three times a day to help anxiety and panic Propranolol 10 mg daily prn for anxiety and panic - helping anxiety educated on all rx and monitor B/P 3. Nicotine use- vaping Do not smoke. Nicotine and other chemicals in cigarettes and cigars can cause lung damage. Ask your healthcare provider for information if you currently smoke and need help to quit. E-cigarettes or smokeless tobacco still contain nicotine. Talk to your healthcare provider before you use these products. education on decrease to stopping nicotine products and stop smoking hotline given 507-Quit - Yes [place] Tobacco Quitline Call a Smoking Quitline The [employer] [place]'s Smoking Quitline, (7-340-19Q-QUIT) Smokefree.gov, which connects you with your [facility]'s Quitline, (1-380-OKHDIJZ) [facility] Smoking Quitline, (8-016-CAIBBZN) 4. cannabis Cannabis Use Education Recommend decrease/stop cannabis use as it can negatively impact mood, motivation, anxiety, sleep, focus/concentrat ion/memory (vigilance, elasticity, processing and attention); can also contribute to development of psychosis. Recommend decrease/stop cannabis use as it may be negatively impacting mood, motivation, anxiety, sleep, focus; can also contribute to development of psychosis Cannabis/marijua na information: http__s://shreya.n ih.gov/publicati ons/drugfacts/ca nnabis-marijuana http__s://www.[employer].com/ca zfduwm-tbq-wotrm oan-hphfsxmyp-ik hd/ 5. Passive suicidal thoughts - improved no passive thoughts no plans or intent denies SI/HI no active thoughts NO thoughts harm to self or others discuss go to nearest ER if have active thoughts, increase passive thoughts, plans or intent saftey plan discuss 988/911 discuss support system [place] added and educated 6. ADHD symptoms Crey[place] scheduled discuss non stimulates related to cannabis use Evidence suggests an active lifestyle and achieving and maintaining an ideal body weight (20-25 BMI) is optimal for health. Experts recommend at least 30 minutes of moderate to vigorous activity per day as tolerated, 5 days a week Eat healthy, including plenty of fresh fruits and vegetables daily. Strive to have 2/3 cup of your plate to be vegetables, fruits, whole grains and beans, while 1/3 or less should be an animal product. Choose fish and chicken and limit red meat and processed meats. Assess dietary pattern for daily intake of fruits, vegetables, and whole grains, as well as red and processed meats, alcohol, and processed foods or beverages with added fats and/or sugars. Assess timing of meals and snacking habits, portion size, frequency of eating out, and use of added fats and/or sugars to foods or beverages. All survivors should be encouraged to: Follow a predominantly nutrient-rich plant-based diet, including vegetables, fruit, and whole grains. Make informed choices about food to ensure variety and adequate nutrient intake. Limit consumption of red meat such as beef, pork, or valdez to no more than 18 ounces (cooked) per week. Eat processed meats such as ham, hot dogs, deli cuts, weeks, and sausage sparingly if at all. Limit consumption of fast foods and other processed foods that are high in fat, starches, or sugars such as chips, cookies, candy bars, desserts, processed baked goods, sugary cereals, and fried foods. Limit refined sugars to <6 tsp (25 g) for a 2000-calorie daily diet and <9 tsp (38 g) for a 3000-calorie daily diet. One medium cookie has about 2 tsp of sugar; a 12-oz can of a soft drink has about 10 tsp. Track calorie intake. Self-monitoring of food and beverage intake has been shown to be an effective strategy for weight management. Prolonged periods of fasting may impair adequate caloric and nutrient intake. Drink alcohol sparingly if at all. Lower levels of alcohol consumption are associated with a lower risk of cancer. For patients desiring further recommendations for dietary guidelines: Consider referral to a registered dietitian or brush polisher. The USDA approximate food plate volumes (http_s://www.Bringrs plate.gov) are: Vegetables and fruits should comprise half the volume of food on the plate Vegetables: 30% of plate; fruits 20% of plate Whole grains: 30% of plate Protein: 20% of plate Recommended sources of dietary components: Fat: plant sources such as olive or canola oil, avocados, seeds and nuts, and fatty fish Carbohydrates: fruits, vegetables, whole grains, and legumes Protein: poultry, fish, legumes, low-fat dairy foods, and nuts While the risks and benefits of soy foods for cancer survivors have been debated for many years, most studies to date show that moderate consumption of soy foods (up to 3 servings per day) are beneficial in promoting overall health and survival, with the strongest evidence existing for the prevention of lung cancer and reduction of breast cancer recurrence. Practice portion control. Make informed food choices through routine evaluation of food labels. Incorporate physical activity, particularly strength training, to assure optimal lean body mass (SPA-1). Track weight, diet, calories, and physical activity routines (eg, journaling, mobile phone apps). Limit alcohol intake to one drink per day or less for a woman and two drinks or less per day for a man. Avoid smoking! educated on all medications, benefits, side effects and risk, and educated on depression, anxiety, and ADHD, mood d/o and educated on compliance of medications, metabolic and movement d/o education appointment is, continue therapy discussion with patient about course of treatment and patient instructions. education on serotonin syndrome SSRI/SNRI side effects discussed including but not limited to, gastric upset, nausea, vomiting, diarrhea and/or constipation, weight changes, sexual side effects including loss of libido, increased suicidal thoughts/behavio rs in children and young adults, and serotonin syndrome. Second generation antipsychotics (SGAs) have metabolic syndrome issues with weight gain, increase in prolactin, increased waist circumference, increased lipids, and increased glucose. Thus routine monitoring of weight, metabolic labs, etc. is indicated. A general rank ordering of antipsychotics that have the greatest to the least risk of metabolic effects is olanzapine, quetiapine, risperidone, ziprasidone, and aripiprazole. However, weight gain can occur with all of these drugs and considerable variability exists among patients receiving the same drug regarding the risk of metabolic effects. Anti-psychotic agents not only increase the risk of metabolic disorder, they also increase the risk of CVA, akathisia, and movement disorders including EPS or tardive dyskinesia (more common with first generation antipsychotics) and more. Medication Management and Follow-Up - Plan: - Schedule follow-up appointments every 1-3 months to monitor the patient's response to the medication regimen. - Reinforce the importance of avoiding recreational drug use due to potential neurotoxicity and interactions with prescribed medications. 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 websites http_s://www.nim h.nih.gov/health /topics/mental-h ealth-medication s http_s://www.nam i.org/About-Ment al-Illness/Treat ments/Mental-Hea lth-Medications http_s://www.nam i.org/About-Ment al-Illness/Menta e-Zshpnl-Adjpnvb ons http_s://[employer]/depres sumeet/the-cogniti kc-acthptdh-zp-d epression#treatm ents http__s://www.ni .nih.gov/healt h/topics/mental- health-medicatio ns http__s://www.na mi.org/About-Men camelia-Illness/Marissa tments/Mental-He alth-Medications http_s://shreya.ni h.gov/publicatio ns/drugfacts/can nabis-marijuana http_s://www.[employer]/can nglmr-zhy-bjefup iv-rdgledapu-cdl d/ 07/30/2025 Suicidal thoughts (ICD-10 - R45.851) Suicidal Thoughts in a Family Member: Care Instructions material was published, Suicidal Thoughts and Behavior: Care Instructions material was published, Learning About Making a Suicide Safety Plan material was published 1. Bipolar depression Abilify 10 mg at evening - discuss and educated on [place] for depression, irritable and suicide prevention educated on rx refer to therapy [facility] Start [place] 300 mg ER AT BEDTIME educated on medication. [place] education [place] use reviewed. Risks include risks of toxicity, arrhythmias, cognitive impairment, changes in muscle coordination, weight gain, thyroid and parathyroid changes, polydipsia and polyuria, alopecia, tremor and teratogenicity ( defects). Recommend avoid in females (use contraception consistently). Routine lab monitoring may be required. Patient consented to treatment. Indications: acute erlin (euphoric erlin), bipolar prophylaxis, bipolar depression treatment or augmentation, unipolar depression as augmentation with antidepressants Average dose = I,500 mg/day, target serum level 0.8 [place] is known to reduce risk of suicide. Mechanism of action: inhibits inositol monophosphatase, interfering with 2nd messengers Nuisance Side Effects: sedation, cognitive difficulties, decreased creativity, dry mouth, tremor, increased appetite, weight gain, polydipsia, polyuria, nausea, diarrhea, acne, alopecia Serious Side Effects: Thyroid: hypothyroidism (5%), goiter (3%) Cardiac: decrease in cardiac conduction leading to sick sinus syndrome, blocks SA node Teratogenicity: Ebstein's anomaly 2 in 1,000 Renal: chronic renal insufficiency (after 10-20 years), acute renal failure, polyuria occurs in 50-70% [lithium antagonizes anti-diuretic hormone (ADH)], diabetes insipidus in 10% (treat with amiloride) Drug-drug interactions: increase in lithium: NSAIDs, JOSEPHINE inhibitors, angiotensin II antagonists If you are planning on becoming , notify your health care provider so that he/she can best manage your medications. People living with bipolar disorder who wish to become face important decisions. It is important to discuss the risks and benefits of treatment with your doctor and caregivers. [place] has been associated with an increased risk of Ebstein's anomaly, a heart valve defect. Even though data suggest that the risk of Ebstein's anomaly from first trimester use of lithium is very low, an ultrasound of the heart is recommended at 16 to 20 weeks of gestation. [place] levels should be monitored monthly in early and weekly near delivery. Do not stop taking lithium without first speaking to your health care provider. Discontinuing mood stabilizer medications during has been associated with a significant increase in symptom relapse. If an overdose occurs call your doctor or 911. You may need urgent medical care. You may also contact the poison control center at . A specific treatment to reverse the effects of lithium does not exist, but there are treatments to decrease the effects of the medication. Only a doctor can determine if you require treatment. Avoid drinking alcohol or using illegal drugs while you are taking lithium. They may decrease the benefits (e.g., worsen your condition) and increase adverse effects (e.g., sedation) of the medication. Avoid low sodium diets and dehydration because this can increase the risk of lithium toxicity. Avoid over the counter and prescription pain medications that contain nonsteroidal anti-inflammator y medications (NSAIDS) such as ibuprofen (Motrin, Advil) or naproxen (Aleve, Naprosyn) because these medications can increase the risk of toxicity from lithium. Avoid excessive intake of caffeinated beverages, such as coffee, tea, cola or energy drinks, since these may decrease levels of lithium and decrease effectiveness of the medication. Discontinuing caffeine use may increase lithium levels. Consult your health care provider before reducing or stopping caffeine use. What are the possible side effects of lithium? Common side effects Headache Nausea or vomiting Diarrhea Dizziness or drowsiness Changes in appetite Hand tremors Dry mouth Increased thirst Increased urination Thinning of hair or hair loss Acne-like rash Rare/Serious side effects Signs of lithium toxicity include severe nausea and vomiting, severe hand tremors, confusion, vision changes, and unsteadiness while standing or walking. These symptoms need to be addressed immediately with a medical doctor to ensure your lithium level is not dangerously high. In rare cases, lithium may lead to a reversible condition known as diabetes insipidus. If this occurs you would notice a significant increase in thirst and how much fluid you drink and how much you urinate. Talk to your doctor if you notice you are urinating more frequently than usual. Are There Any Risks For Taking [place] For Long Periods Of Time? Hypothyroidism (low levels of thyroid hormone) may occur with long-term lithium use. Rare kidney problems have been associated with long-term use of lithium. The risk increases with high levels of lithium. Your doctor will monitor your kidney function at routine check-ups to ensure this does not occur. Summary of Black Box Warnings [place] Toxicity [place] toxicity is closely related to lithium blood levels and can occur at doses close to therapeutic levels; lithium levels should be monitored closely when starting the medication or if individuals experience side effects of the medication. 2. Anxiety Therapy- see walk in clinic [facility] discuss coping skills Buspar 10 mg three times a day Vistaril 25 mg up to 3x day PRN for anxiety and panic Start Propranolol 10 mg daily prn for anxiety and panic educated on all rx and monitor B/P 3. Nicotine use- vaping Do not smoke. Nicotine and other chemicals in cigarettes and cigars can cause lung damage. Ask your healthcare provider for information if you currently smoke and need help to quit. E-cigarettes or smokeless tobacco still contain nicotine. Talk to your healthcare provider before you use these products. education on decrease to stopping nicotine products and stop smoking hotline given Quit - Yes [place] Tobacco Quitline Call a Smoking Quitline The National Cancer [place]'s Smoking Quitline, (6-117-82D-QUIT) Smokefree.gov, which connects you with your State's Quitline, (3-894-FJUWUDC) Veterans Smoking Quitline, (4-909-WYBZGHG) 4. cannabis Cannabis Use Education Recommend decrease/stop cannabis use as it can negatively impact mood, motivation, anxiety, sleep, focus/concentrat ion/memory (vigilance, elasticity, processing and attention); can also contribute to development of psychosis. Recommend decrease/stop cannabis use as it may be negatively impacting mood, motivation, anxiety, sleep, focus; can also contribute to development of psychosis Cannabis/marijua na information: http__s://shreya.n ih.gov/publicati ons/drugfacts/ca nnabis-marijuana http__s://www.[employer]/ca tlssdv-lnb-vrrrr ywi-qwciwhjsx-we hd/ 5. Passive suicidal thoughts no plans or intent denies SI/HI no active thoughts NO thoughts harm to self or others discuss go to nearest ER if have active thoughts, increase passive thoughts, plans or intent saftey plan discuss 988/911 discuss support system [place] added and educated Evidence suggests an active lifestyle and achieving and maintaining an ideal body weight (20-25 BMI) is optimal for health. Experts recommend at least 30 minutes of moderate to vigorous activity per day as tolerated, 5 days a week Eat healthy, including plenty of fresh fruits and vegetables daily. Strive to have 2/3 cup of your plate to be vegetables, fruits, whole grains and beans, while 1/3 or less should be an animal product. Choose fish and chicken and limit red meat and processed meats. Assess dietary pattern for daily intake of fruits, vegetables, and whole grains, as well as red and processed meats, alcohol, and processed foods or beverages with added fats and/or sugars. Assess timing of meals and snacking habits, portion size, frequency of eating out, and use of added fats and/or sugars to foods or beverages. All survivors should be encouraged to: Follow a predominantly nutrient-rich plant-based diet, including vegetables, fruit, and whole grains. Make informed choices about food to ensure variety and adequate nutrient intake. Limit consumption of red meat such as beef, pork, or valdez to no more than 18 ounces (cooked) per week. Eat processed meats such as ham, hot dogs, deli cuts, weeks, and sausage sparingly if at all. Limit consumption of fast foods and other processed foods that are high in fat, starches, or sugars such as chips, cookies, candy bars, desserts, processed baked goods, sugary cereals, and fried foods. Limit refined sugars to <6 tsp (25 g) for a 2000-calorie daily diet and <9 tsp (38 g) for a 3000-calorie daily diet. One medium cookie has about 2 tsp of sugar; a 12-oz can of a soft drink has about 10 tsp. Track calorie intake. Self-monitoring of food and beverage intake has been shown to be an effective strategy for weight management. Prolonged periods of fasting may impair adequate caloric and nutrient intake. Drink alcohol sparingly if at all. Lower levels of alcohol consumption are associated with a lower risk of cancer. For patients desiring further recommendations for dietary guidelines: Consider referral to a registered dietitian or brush polisher. The USDA approximate food plate volumes (http_s://www.Bringrs plate.gov) are: Vegetables and fruits should comprise half the volume of food on the plate Vegetables: 30% of plate; fruits 20% of plate Whole grains: 30% of plate Protein: 20% of plate Recommended sources of dietary components: Fat: plant sources such as olive or canola oil, avocados, seeds and nuts, and fatty fish Carbohydrates: fruits, vegetables, whole grains, and legumes Protein: poultry, fish, legumes, low-fat dairy foods, and nuts While the risks and benefits of soy foods for cancer survivors have been debated for many years, most studies to date show that moderate consumption of soy foods (up to 3 servings per day) are beneficial in promoting overall health and survival, with the strongest evidence existing for the prevention of lung cancer and reduction of breast cancer recurrence. Practice portion control. Make informed food choices through routine evaluation of food labels. Incorporate physical activity, particularly strength training, to assure optimal lean body mass (SPA-1). Track weight, diet, calories, and physical activity routines (eg, journaling, mobile phone apps). Limit alcohol intake to one drink per day or less for a woman and two drinks or less per day for a man. Avoid smoking! educated on all medications, benefits, side effects and risk, and educated on depression, anxiety, and ADHD, mood d/o and educated on compliance of medications, metabolic and movement d/o education appointment is, continue therapy discussion with patient about course of treatment and patient instructions. education on serotonin syndrome SSRI/SNRI side effects discussed including but not limited to, gastric upset, nausea, vomiting, diarrhea and/or constipation, weight changes, sexual side effects including loss of libido, increased suicidal thoughts/behavio rs in children and young adults, and serotonin syndrome. Second generation antipsychotics (SGAs) have metabolic syndrome issues with weight gain, increase in prolactin, increased waist circumference, increased lipids, and increased glucose. Thus routine monitoring of weight, metabolic labs, etc. is indicated. A general rank ordering of antipsychotics that have the greatest to the least risk of metabolic effects is olanzapine, quetiapine, risperidone, ziprasidone, and aripiprazole. However, weight gain can occur with all of these drugs and considerable variability exists among patients receiving the same drug regarding the risk of metabolic effects. Anti-psychotic agents not only increase the risk of metabolic disorder, they also increase the risk of CVA, akathisia, and movement disorders including EPS or tardive dyskinesia (more common with first generation antipsychotics) and more. Medication Management and Follow-Up - Plan: - Schedule follow-up appointments every 1-3 months to monitor the patient's response to the medication regimen. - Reinforce the importance of avoiding recreational drug use due to potential neurotoxicity and interactions with prescribed medications. 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 websites http_s://www.nim h.nih.gov/health /topics/mental-h ealth-medication s http_s://www.nam i.org/About-Ment al-Illness/Treat ments/Mental-Hea lth-Medications http_s://www.nam i.org/About-Ment al-Illness/Menta g-Mmwmfq-Zywzotw ons http_s://[employer]/depres sumeet/the-cogniti ew-yplatdns-li-d epression#treatm ents http__s://www.ni .nih.gov/healt h/topics/mental- health-medicatio ns http__s://www.na mi.org/About-Men camelia-Illness/Marissa tments/Mental-He alth-Medications http_s://shreya.ni h.gov/publicatio ns/drugfacts/can nabis-marijuana http_s://www.[employer]/can ibiby-jzm-vupqot xk-aqnkogpes-omm d/ 02/19/2025 Other Learning About Depression Screening material was printed Learning About Depression Screening material was printed, Aripiprazole Injection material was published 1. Bipolar Stop Latuda 20 mg - r/t [place] on insurance Add Abilify 5 mg at bedtime - Bipolar s/s and anger educated on rx refer to therapy [facility] 2. Anxiety Therapy discuss coping skills 3. Nicotine use- vaping 4. cannabis Cannabis Use Education Recommend decrease/stop cannabis use as it can negatively impact mood, motivation, anxiety, sleep, focus/concentrat ion/memory (vigilance, elasticity, processing and attention); can also contribute to development of psychosis. Recommend decrease/stop cannabis use as it may be negatively impacting mood, motivation, anxiety, sleep, focus; can also contribute to development of psychosis Cannabis/marijua na information: http__s://shreya.n ih.gov/publicati ons/drugfacts/ca nnabis-marijuana http__s://[employer]/ca avglea-hha-disif grl-mafiohbvi-ry hd/ educated on all medications, benefits, side effects and risk, and educated on depression, anxiety, and ADHD, mood d/o and educated on compliance of medications, metabolic and movement d/o education appointment is, continue therapy discussion with patient about course of treatment and patient instructions. education on serotonin syndrome SSRI/SNRI side effects discussed including but not limited to, gastric upset, nausea, vomiting, diarrhea and/or constipation, weight changes, sexual side effects including loss of libido, increased suicidal thoughts/behavio rs in children and young adults, and serotonin syndrome. Second generation antipsychotics (SGAs) have metabolic syndrome issues with weight gain, increase in prolactin, increased waist circumference, increased lipids, and increased glucose. Thus routine monitoring of weight, metabolic labs, etc. is indicated. A general rank ordering of antipsychotics that have the greatest to the least risk of metabolic effects is olanzapine, quetiapine, risperidone, ziprasidone, and aripiprazole. However, weight gain can occur with all of these drugs and considerable variability exists among patients receiving the same drug regarding the risk of metabolic effects. Anti-psychotic agents not only increase the risk of metabolic disorder, they also increase the risk of CVA, akathisia, and movement disorders including EPS or tardive dyskinesia (more common with first generation antipsychotics) and more. Medication Management and Follow-Up - Plan: - Schedule follow-up appointments every 1-3 months to monitor the patient's response to the medication regimen. - Reinforce the importance of avoiding recreational drug use due to potential neurotoxicity and interactions with prescribed medications. websites http_s://www.nim h.nih.gov/health /topics/mental-h ealth-medication s http_s://www.nam i.org/About-Ment al-Illness/Treat ments/Mental-Hea lth-Medications http_s://www.nam i.org/About-Ment al-Illness/Menta s-Phhxtg-Gtdwuxa ons http_s://[employer]/evin fay/the-cogniti by-tesymuai-gg-d epression#treatm ents http__s://www.ni .nih.gov/healt h/topics/mental- health-medicatio ns http__s://www.na mi.org/About-Men camelia-Illness/Marissa tments/Mental-He alth-Medications http_s://shreya.ni h.gov/publicatio ns/drugfacts/can nabis-marijuana http_s://www.[employer]/can qzdsj-psj-vojyrp yv-sfwzevqay-pnp d/ 03/08/2025 Other Aripiprazole Injection material was published, Buspirone material was published 1. Bipolar Abilify 5 mg at bedtime - improved mood educated on rx refer to therapy [facility] 2. Anxiety Therapy- will see walk in clinic [facility] discuss coping skills discuss and educated on Buspar 5 mg twice a day 3. Nicotine use- vaping Do not smoke. Nicotine and other chemicals in cigarettes and cigars can cause lung damage. Ask your healthcare provider for information if you currently smoke and need help to quit. E-cigarettes or smokeless tobacco still contain nicotine. Talk to your healthcare provider before you use these products. education on decrease to stopping nicotine products and stop smoking hotline given -Quit - Yes [place] Tobacco Quitline Call a Smoking Quitline The [employer] [place]'s Smoking Quitline, (9-947-59I-QUIT) Smokefree.gov, which connects you with your State's Quitline, (5-252-MQZUTRC) Veterans Smoking Quitline, (5-441-AHLPODM) 4. cannabis Cannabis Use Education Recommend decrease/stop cannabis use as it can negatively impact mood, motivation, anxiety, sleep, focus/concentrat ion/memory (vigilance, elasticity, processing and attention); can also contribute to development of psychosis. Recommend decrease/stop cannabis use as it may be negatively impacting mood, motivation, anxiety, sleep, focus; can also contribute to development of psychosis Cannabis/marijua na information: http__s://shreya.[place].gov/publicati ons/drugfacts/[place] nnabis-marijuana http__s://[employer].Given.to/ca xreiza-ojt-qfsgs zpe-gvfneevnd-tf hd/ educated on all medications, benefits, side effects and risk, and educated on depression, anxiety, and ADHD, mood d/o and educated on compliance of medications, metabolic and movement d/o education appointment is, continue therapy discussion with patient about course of treatment and patient instructions. education on serotonin syndrome SSRI/SNRI side effects discussed including but not limited to, gastric upset, nausea, vomiting, diarrhea and/or constipation, weight changes, sexual side effects including loss of libido, increased suicidal thoughts/behavio rs in children and young adults, and serotonin syndrome. Second generation antipsychotics (SGAs) have metabolic syndrome issues with weight gain, increase in prolactin, increased waist circumference, increased lipids, and increased glucose. Thus routine monitoring of weight, metabolic labs, etc. is indicated. A general rank ordering of antipsychotics that have the greatest to the least risk of metabolic effects is olanzapine, quetiapine, risperidone, ziprasidone, and aripiprazole. However, weight gain can occur with all of these drugs and considerable variability exists among patients receiving the same drug regarding the risk of metabolic effects. Anti-psychotic agents not only increase the risk of metabolic disorder, they also increase the risk of CVA, akathisia, and movement disorders including EPS or tardive dyskinesia (more common with first generation antipsychotics) and more. Medication Management and Follow-Up - Plan: - Schedule follow-up appointments every 1-3 months to monitor the patient's response to the medication regimen. - Reinforce the importance of avoiding recreational drug use due to potential neurotoxicity and interactions with prescribed medications. 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 websites http_s://www.nim h.nih.gov/health /topics/mental-h ealth-medication s http_s://www.nam i.org/About-Ment al-Illness/Treat ments/Mental-Hea lth-Medications http_s://www.nam i.org/About-Ment al-Illness/Menta a-Tfkyxo-Jhrzxjf ons http_s://[employer]/deprilya sumeet/the-cogniti ie-dbruedbl-gr-d epression#treatm ents http__s://www.[facility].nih.gov/healt h/topics/mental- health-medicatio ns http__s://www.na mi.org/About-Men camelia-Illness/Marissa tments/Mental-He alth-Medications http_s://shreya.ni h.gov/publicatio ns/drugfacts/can nabis-marijuana http_s://www.[employer]/can ijjvq-sqa-oevgxx lf-pxjrqolny-dxn d/ 07/30/2025 Other Aripiprazole material was published, Aripiprazole Injection material was published, [place] material was published, Buspirone material was published, Hydroxyzine material was published, Propranolol (Cardiovascula r) material was published 1. Bipolar depression Abilify 10 mg at evening - discuss and educated on [place] for depression, irritable and suicide prevention educated on rx refer to therapy [facility] Start [place] 300 mg ER AT BEDTIME educated on medication. [place] education [place] use reviewed. Risks include risks of toxicity, arrhythmias, cognitive impairment, changes in muscle coordination, weight gain, thyroid and parathyroid changes, polydipsia and polyuria, alopecia, tremor and teratogenicity ( defects). Recommend avoid in females (use contraception consistently). Routine lab monitoring may be required. Patient consented to treatment. Indications: acute erlin (euphoric erlin), bipolar prophylaxis, bipolar depression treatment or augmentation, unipolar depression as augmentation with antidepressants Average dose = I,500 mg/day, target serum level 0.8 [place] is known to reduce risk of suicide. Mechanism of action: inhibits inositol monophosphatase, interfering with 2nd messengers Nuisance Side Effects: sedation, cognitive difficulties, decreased creativity, dry mouth, tremor, increased appetite, weight gain, polydipsia, polyuria, nausea, diarrhea, acne, alopecia Serious Side Effects: Thyroid: hypothyroidism (5%), goiter (3%) Cardiac: decrease in cardiac conduction leading to sick sinus syndrome, blocks SA node Teratogenicity: Ebstein's anomaly 2 in 1,000 Renal: chronic renal insufficiency (after 10-20 years), acute renal failure, polyuria occurs in 50-70% [lithium antagonizes anti-diuretic hormone (ADH)], diabetes insipidus in 10% (treat with amiloride) Drug-drug interactions: increase in lithium: NSAIDs, JOSEPHINE inhibitors, angiotensin II antagonists If you are planning on becoming , notify your health care provider so that he/she can best manage your medications. People living with bipolar disorder who wish to become face important decisions. It is important to discuss the risks and benefits of treatment with your doctor and caregivers. [place] has been associated with an increased risk of Ebstein's anomaly, a heart valve defect. Even though data suggest that the risk of Ebstein's anomaly from first trimester use of lithium is very low, an ultrasound of the heart is recommended at 16 to 20 weeks of gestation. [place] levels should be monitored monthly in early and weekly near delivery. Do not stop taking lithium without first speaking to your health care provider. Discontinuing mood stabilizer medications during has been associated with a significant increase in symptom relapse. If an overdose occurs call your doctor or 911. You may need urgent medical care. You may also contact the poison control center at . A specific treatment to reverse the effects of lithium does not exist, but there are treatments to decrease the effects of the medication. Only a doctor can determine if you require treatment. Avoid drinking alcohol or using illegal drugs while you are taking lithium. They may decrease the benefits (e.g., worsen your condition) and increase adverse effects (e.g., sedation) of the medication. Avoid low sodium diets and dehydration because this can increase the risk of lithium toxicity. Avoid over the counter and prescription pain medications that contain nonsteroidal anti-inflammator y medications (NSAIDS) such as ibuprofen (Motrin, Advil) or naproxen (Aleve, Naprosyn) because these medications can increase the risk of toxicity from lithium. Avoid excessive intake of caffeinated beverages, such as coffee, tea, cola or energy drinks, since these may decrease levels of lithium and decrease effectiveness of the medication. Discontinuing caffeine use may increase lithium levels. Consult your health care provider before reducing or stopping caffeine use. What are the possible side effects of lithium? Common side effects Headache Nausea or vomiting Diarrhea Dizziness or drowsiness Changes in appetite Hand tremors Dry mouth Increased thirst Increased urination Thinning of hair or hair loss Acne-like rash Rare/Serious side effects Signs of lithium toxicity include severe nausea and vomiting, severe hand tremors, confusion, vision changes, and unsteadiness while standing or walking. These symptoms need to be addressed immediately with a medical doctor to ensure your lithium level is not dangerously high. In rare cases, lithium may lead to a reversible condition known as diabetes insipidus. If this occurs you would notice a significant increase in thirst and how much fluid you drink and how much you urinate. Talk to your doctor if you notice you are urinating more frequently than usual. Are There Any Risks For Taking [place] For Long Periods Of Time? Hypothyroidism (low levels of thyroid hormone) may occur with long-term lithium use. Rare kidney problems have been associated with long-term use of lithium. The risk increases with high levels of lithium. Your doctor will monitor your kidney function at routine check-ups to ensure this does not occur. Summary of Black Box Warnings [place] Toxicity [place] toxicity is closely related to lithium blood levels and can occur at doses close to therapeutic levels; lithium levels should be monitored closely when starting the medication or if individuals experience side effects of the medication. 2. Anxiety Therapy- see walk in clinic [facility]lie discuss coping skills Buspar 10 mg three times a day Vistaril 25 mg up to 3x day PRN for anxiety and panic Start Propranolol 10 mg daily prn for anxiety and panic educated on all rx and monitor B/P 3. Nicotine use- vaping Do not smoke. Nicotine and other chemicals in cigarettes and cigars can cause lung damage. Ask your healthcare provider for information if you currently smoke and need help to quit. E-cigarettes or smokeless tobacco still contain nicotine. Talk to your healthcare provider before you use these products. education on decrease to stopping nicotine products and stop smoking hotline given -Quit - Yes [place] Tobacco Quitline Call a Smoking Quitline The [employer] [place]'s Smoking Quitline, (6-382-95K-QUIT) Smokefree.gov, which connects you with your State's Quitline, (7-446-DYWSJXY) Veterans Smoking Quitline, (8-232-ONHXFDY) 4. cannabis Cannabis Use Education Recommend decrease/stop cannabis use as it can negatively impact mood, motivation, anxiety, sleep, focus/concentrat ion/memory (vigilance, elasticity, processing and attention); can also contribute to development of psychosis. Recommend decrease/stop cannabis use as it may be negatively impacting mood, motivation, anxiety, sleep, focus; can also contribute to development of psychosis Cannabis/marijua na information: http__s://shreya.n ih.gov/publicati ons/drugfacts/[place] nnabis-marijuana http__s://[employer]/ca kivahg-rar-kycyo mfq-ckhvlasja-ft hd/ 5. Passive suicidal thoughts no plans or intent denies SI/HI no active thoughts NO thoughts harm to self or others discuss go to nearest ER if have active thoughts, increase passive thoughts, plans or intent saftey plan discuss [phone] discuss support system [place] added and educated Evidence suggests an active lifestyle and achieving and maintaining an ideal body weight (20-25 BMI) is optimal for health. Experts recommend at least 30 minutes of moderate to vigorous activity per day as tolerated, 5 days a week Eat healthy, including plenty of fresh fruits and vegetables daily. Strive to have 2/3 cup of your plate to be vegetables, fruits, whole grains and beans, while 1/3 or less should be an animal product. Choose fish and chicken and limit red meat and processed meats. Assess dietary pattern for daily intake of fruits, vegetables, and whole grains, as well as red and processed meats, alcohol, and processed foods or beverages with added fats and/or sugars. Assess timing of meals and snacking habits, portion size, frequency of eating out, and use of added fats and/or sugars to foods or beverages. All survivors should be encouraged to: Follow a predominantly nutrient-rich plant-based diet, including vegetables, fruit, and whole grains. Make informed choices about food to ensure variety and adequate nutrient intake. Limit consumption of red meat such as beef, pork, or valdez to no more than 18 ounces (cooked) per week. Eat processed meats such as ham, hot dogs, deli cuts, weeks, and sausage sparingly if at all. Limit consumption of fast foods and other processed foods that are high in fat, starches, or sugars such as chips, cookies, candy bars, desserts, processed baked goods, sugary cereals, and fried foods. Limit refined sugars to <6 tsp (25 g) for a 2000-calorie daily diet and <9 tsp (38 g) for a 3000-calorie daily diet. One medium cookie has about 2 tsp of sugar; a 12-oz can of a soft drink has about 10 tsp. Track calorie intake. Self-monitoring of food and beverage intake has been shown to be an effective strategy for weight management. Prolonged periods of fasting may impair adequate caloric and nutrient intake. Drink alcohol sparingly if at all. Lower levels of alcohol consumption are associated with a lower risk of cancer. For patients desiring further recommendations for dietary guidelines: Consider referral to a registered dietitian or brush polisher. The USDA approximate food plate volumes (http_s://www.Bringrs plate.gov) are: Vegetables and fruits should comprise half the volume of food on the plate Vegetables: 30% of plate; fruits 20% of plate Whole grains: 30% of plate Protein: 20% of plate Recommended sources of dietary components: Fat: plant sources such as olive or canola oil, avocados, seeds and nuts, and fatty fish Carbohydrates: fruits, vegetables, whole grains, and legumes Protein: poultry, fish, legumes, low-fat dairy foods, and nuts While the risks and benefits of soy foods for cancer survivors have been debated for many years, most studies to date show that moderate consumption of soy foods (up to 3 servings per day) are beneficial in promoting overall health and survival, with the strongest evidence existing for the prevention of lung cancer and reduction of breast cancer recurrence. Practice portion control. Make informed food choices through routine evaluation of food labels. Incorporate physical activity, particularly strength training, to assure optimal lean body mass (SPA-1). Track weight, diet, calories, and physical activity routines (eg, journaling, mobile phone apps). Limit alcohol intake to one drink per day or less for a woman and two drinks or less per day for a man. Avoid smoking! educated on all medications, benefits, side effects and risk, and educated on depression, anxiety, and ADHD, mood d/o and educated on compliance of medications, metabolic and movement d/o education appointment is, continue therapy discussion with patient about course of treatment and patient instructions. education on serotonin syndrome SSRI/SNRI side effects discussed including but not limited to, gastric upset, nausea, vomiting, diarrhea and/or constipation, weight changes, sexual side effects including loss of libido, increased suicidal thoughts/behavio rs in children and young adults, and serotonin syndrome. Second generation antipsychotics (SGAs) have metabolic syndrome issues with weight gain, increase in prolactin, increased waist circumference, increased lipids, and increased glucose. Thus routine monitoring of weight, metabolic labs, etc. is indicated. A general rank ordering of antipsychotics that have the greatest to the least risk of metabolic effects is olanzapine, quetiapine, risperidone, ziprasidone, and aripiprazole. However, weight gain can occur with all of these drugs and considerable variability exists among patients receiving the same drug regarding the risk of metabolic effects. Anti-psychotic agents not only increase the risk of metabolic disorder, they also increase the risk of CVA, akathisia, and movement disorders including EPS or tardive dyskinesia (more common with first generation antipsychotics) and more. Medication Management and Follow-Up - Plan: - Schedule follow-up appointments every 1-3 months to monitor the patient's response to the medication regimen. - Reinforce the importance of avoiding recreational drug use due to potential neurotoxicity and interactions with prescribed medications. 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 websites http_s://www.nim h.nih.gov/health /topics/mental-h ealth-medication s http_s://www.nam i.org/About-Ment al-Illness/Treat ments/Mental-Hea lth-Medications http_s://www.nam i.org/About-Ment al-Illness/Menta m-Ogungr-Kcggimm ons http_s://[employer]/depres sumeet/the-cogniti ws-xtegmvtx-ot-d epression#treatm ents http__s://www.ni .nih.gov/healt h/topics/mental- health-medicatio ns http__s://www.na mi.org/About-Men camelia-Illness/Marissa tments/Mental-He alth-Medications http_s://shreya. h.gov/publicatio ns/drugfacts/can nabis-marijuana http_s://www.[employer]/can ofidr-ehu-pxiuqq dd-ilqazwucm-rpc d/ 10/08/2025 Other Marijuana Use: Care Instructions material was published, Learning About Cannabis Use Disorder material was published, Marijuana Use: Care Instructions material was published, Learning About Cannabis Use Disorder material was published, Marijuana Use: Care Instructions material was published, Learning About Cannabis Use Disorder material was published Deciding About Using Medicines To Quit Smoking material was published, Quitting Tobacco: Care Instructions material was published, Stopping Smokeless Tobacco Use: Care Instructions material was published, Learning About Benefits of Quitting Smoking material was published, Stopping Smokeless Tobacco Use: Care Instructions material was published, Learning About Benefits of Quitting Smoking material was published, Quitting Tobacco: Care Instructions material was published, Deciding About Using Medicines To Quit Smoking material was published, Quitting Tobacco: Care Instructions material was published, Learning About Benefits of Quitting Smoking material was published, Deciding About Using Medicines To Quit Smoking material was published, During : Exercises material was published 1. Bipolar - PATIENT STOPPED ALL RX 10/02/25 when found out - presently erlin restart Abilify 10 mg at evening - schedule to see [facility]ATE/OB- on discuss and educated on rx and preganancy and Abilify- National Registry for Atypical Antipsychotics - 1- [id number] www.[facility].org/clinc al -sjj-dxleyojx-ei ogram/pregnancyr egistry discuss and educated on [place] for depression, irritable and suicide prevention educated on rx refer to therapy [facility]- currently off [place] since 10/02/25 hx [place] 450 mg ER AT BEDTIME for Bipolar s/s and help passive thoughts- educated on medication. [place] education [place] use reviewed. Risks include risks of toxicity, arrhythmias, cognitive impairment, changes in muscle coordination, weight gain, thyroid and parathyroid changes, polydipsia and polyuria, alopecia, tremor and teratogenicity ( defects). Recommend avoid in females (use contraception consistently). Routine lab monitoring may be required. Patient consented to treatment. Indications: acute erlin (euphoric erlin), bipolar prophylaxis, bipolar depression treatment or augmentation, unipolar depression as augmentation with antidepressants Average dose = I,500 mg/day, target serum level 0.8 [place] is known to reduce risk of suicide. Mechanism of action: inhibits inositol monophosphatase, interfering with 2nd messengers Nuisance Side Effects: sedation, cognitive difficulties, decreased creativity, dry mouth, tremor, increased appetite, weight gain, polydipsia, polyuria, nausea, diarrhea, acne, alopecia Serious Side Effects: Thyroid: hypothyroidism (5%), goiter (3%) Cardiac: decrease in cardiac conduction leading to sick sinus syndrome, blocks SA node Teratogenicity: Ebstein's anomaly 2 in 1,000 Renal: chronic renal insufficiency (after 10-20 years), acute renal failure, polyuria occurs in 50-70% [lithium antagonizes anti-diuretic hormone (ADH)], diabetes insipidus in 10% (treat with amiloride) Drug-drug interactions: increase in lithium: NSAIDs, JOSEPHINE inhibitors, angiotensin II antagonists If you are planning on becoming , notify your health care provider so that he/she can best manage your medications. People living with bipolar disorder who wish to become face important decisions. It is important to discuss the risks and benefits of treatment with your doctor and caregivers. [place] has been associated with an increased risk of Ebstein's anomaly, a heart valve defect. Even though data suggest that the risk of Ebstein's anomaly from first trimester use of lithium is very low, an ultrasound of the heart is recommended at 16 to 20 weeks of gestation. [place] levels should be monitored monthly in early and weekly near delivery. Do not stop taking lithium without first speaking to your health care provider. Discontinuing mood stabilizer medications during has been associated with a significant increase in symptom relapse. If an overdose occurs call your doctor or 911. You may need urgent medical care. You may also contact the poison control center at . A specific treatment to reverse the effects of lithium does not exist, but there are treatments to decrease the effects of the medication. Only a doctor can determine if you require treatment. Avoid drinking alcohol or using illegal drugs while you are taking lithium. They may decrease the benefits (e.g., worsen your condition) and increase adverse effects (e.g., sedation) of the medication. Avoid low sodium diets and dehydration because this can increase the risk of lithium toxicity. Avoid over the counter and prescription pain medications that contain nonsteroidal anti-inflammator y medications (NSAIDS) such as ibuprofen (Motrin, Advil) or naproxen (Aleve, Naprosyn) because these medications can increase the risk of toxicity from lithium. Avoid excessive intake of caffeinated beverages, such as coffee, tea, cola or energy drinks, since these may decrease levels of lithium and decrease effectiveness of the medication. Discontinuing caffeine use may increase lithium levels. Consult your health care provider before reducing or stopping caffeine use. What are the possible side effects of lithium? Common side effects Headache Nausea or vomiting Diarrhea Dizziness or drowsiness Changes in appetite Hand tremors Dry mouth Increased thirst Increased urination Thinning of hair or hair loss Acne-like rash Rare/Serious side effects Signs of lithium toxicity include severe nausea and vomiting, severe hand tremors, confusion, vision changes, and unsteadiness while standing or walking. These symptoms need to be addressed immediately with a medical doctor to ensure your lithium level is not dangerously high. In rare cases, lithium may lead to a reversible condition known as diabetes insipidus. If this occurs you would notice a significant increase in thirst and how much fluid you drink and how much you urinate. Talk to your doctor if you notice you are urinating more frequently than usual. Are There Any Risks For Taking [place] For Long Periods Of Time? Hypothyroidism (low levels of thyroid hormone) may occur with long-term lithium use. Rare kidney problems have been associated with long-term use of lithium. The risk increases with high levels of lithium. Your doctor will monitor your kidney function at routine check-ups to ensure this does not occur. Summary of Black Box Warnings [place] Toxicity [place] toxicity is closely related to lithium blood levels and can occur at doses close to therapeutic levels; lithium levels should be monitored closely when starting the medication or if individuals experience side effects of the medication. 2. Anxiety Therapy- discuss coping skills stopped Buspar 10 mg three times a day- currently off since 10/02/25 stopped Vistaril 25 mg up to 3x day PRN for anxiety and panic - currently off since 10/02/25 stopped Propranolol 10 mg daily prn for anxiety and panic - helping anxiety- currently off since 10/02/25 educated on all rx and monitor B/P 3. Nicotine use- vaping Do not smoke. Nicotine and other chemicals in cigarettes and cigars can cause lung damage. Ask your healthcare provider for information if you currently smoke and need help to quit. E-cigarettes or smokeless tobacco still contain nicotine. Talk to your healthcare provider before you use these products. education on decrease to stopping nicotine products and stop smoking hotline given 6401-Quit - Yes [place] Tobacco Quitline Call a Smoking Quitline The National Cancer [place]'s Smoking Quitline, (6-154-16N-QUIT) Smokefree.gov, which connects you with your [facility]'s Quitline, (6-167-ZCHEZME) Veterans Smoking Quitline, (9-335-UWZXJCU) 4. cannabis- stopped 10/02/25 Cannabis Use Education Recommend decrease/stop cannabis use as it can negatively impact mood, motivation, anxiety, sleep, focus/concentrat ion/memory (vigilance, elasticity, processing and attention); can also contribute to development of psychosis. Recommend decrease/stop cannabis use as it may be negatively impacting mood, motivation, anxiety, sleep, focus; can also contribute to development of psychosis Cannabis/marijua na information: http__s://shreya.n ih.gov/publicati ons/drugfacts/ca nnabis-marijuana http__s://www.[employer].com/ca akolig-kzp-xkwav usb-iwldveysc-gf hd/ 5. Passive suicidal thoughts - passive thoughts - restart Abilify no plans or intent denies SI/HI no active thoughts NO thoughts harm to self or others discuss go to nearest ER if have active thoughts, increase passive thoughts, plans or intent saftey plan discuss 988/911 discuss support system [place] added and educated 6. ADHD symptoms Creyos scheduled discuss non stimulates related to cannabis use no rx at this time Evidence suggests an active lifestyle and achieving and maintaining an ideal body weight (20-25 BMI) is optimal for health. Experts recommend at least 30 minutes of moderate to vigorous activity per day as tolerated, 5 days a week Eat healthy, including plenty of fresh fruits and vegetables daily. Strive to have 2/3 cup of your plate to be vegetables, fruits, whole grains and beans, while 1/3 or less should be an animal product. Choose fish and chicken and limit red meat and processed meats. Assess dietary pattern for daily intake of fruits, vegetables, and whole grains, as well as red and processed meats, alcohol, and processed foods or beverages with added fats and/or sugars. Assess timing of meals and snacking habits, portion size, frequency of eating out, and use of added fats and/or sugars to foods or beverages. All survivors should be encouraged to: Follow a predominantly nutrient-rich plant-based diet, including vegetables, fruit, and whole grains. Make informed choices about food to ensure variety and adequate nutrient intake. Limit consumption of red meat such as beef, pork, or valdez to no more than 18 ounces (cooked) per week. Eat processed meats such as ham, hot dogs, deli cuts, weeks, and sausage sparingly if at all. Limit consumption of fast foods and other processed foods that are high in fat, starches, or sugars such as chips, cookies, candy bars, desserts, processed baked goods, sugary cereals, and fried foods. Limit refined sugars to <6 tsp (25 g) for a 2000-calorie daily diet and <9 tsp (38 g) for a 3000-calorie daily diet. One medium cookie has about 2 tsp of sugar; a 12-oz can of a soft drink has about 10 tsp. Track calorie intake. Self-monitoring of food and beverage intake has been shown to be an effective strategy for weight management. Prolonged periods of fasting may impair adequate caloric and nutrient intake. Drink alcohol sparingly if at all. Lower levels of alcohol consumption are associated with a lower risk of cancer. For patients desiring further recommendations for dietary guidelines: Consider referral to a registered dietitian or brush polisher. The USDA approximate food plate volumes (http_s://www.Bringrs plate.gov) are: Vegetables and fruits should comprise half the volume of food on the plate Vegetables: 30% of plate; fruits 20% of plate Whole grains: 30% of plate Protein: 20% of plate Recommended sources of dietary components: Fat: plant sources such as olive or canola oil, avocados, seeds and nuts, and fatty fish Carbohydrates: fruits, vegetables, whole grains, and legumes Protein: poultry, fish, legumes, low-fat dairy foods, and nuts While the risks and benefits of soy foods for cancer survivors have been debated for many years, most studies to date show that moderate consumption of soy foods (up to 3 servings per day) are beneficial in promoting overall health and survival, with the strongest evidence existing for the prevention of lung cancer and reduction of breast cancer recurrence. Practice portion control. Make informed food choices through routine evaluation of food labels. Incorporate physical activity, particularly strength training, to assure optimal lean body mass (SPA-1). Track weight, diet, calories, and physical activity routines (eg, journaling, mobile phone apps). Limit alcohol intake to one drink per day or less for a woman and two drinks or less per day for a man. Avoid smoking! educated on all medications, benefits, side effects and risk, and educated on depression, anxiety, and ADHD, mood d/o and educated on compliance of medications, metabolic and movement d/o education appointment is, continue therapy discussion with patient about course of treatment and patient instructions. education on serotonin syndrome SSRI/SNRI side effects discussed including but not limited to, gastric upset, nausea, vomiting, diarrhea and/or constipation, weight changes, sexual side effects including loss of libido, increased suicidal thoughts/behavio rs in children and young adults, and serotonin syndrome. Second generation antipsychotics (SGAs) have metabolic syndrome issues with weight gain, increase in prolactin, increased waist circumference, increased lipids, and increased glucose. Thus routine monitoring of weight, metabolic labs, etc. is indicated. A general rank ordering of antipsychotics that have the greatest to the least risk of metabolic effects is olanzapine, quetiapine, risperidone, ziprasidone, and aripiprazole. However, weight gain can occur with all of these drugs and considerable variability exists among patients receiving the same drug regarding the risk of metabolic effects. Anti-psychotic agents not only increase the risk of metabolic disorder, they also increase the risk of CVA, akathisia, and movement disorders including EPS or tardive dyskinesia (more common with first generation antipsychotics) and more. Medication Management and Follow-Up - Plan: - Schedule follow-up appointments every 1-3 months to monitor the patient's response to the medication regimen. - Reinforce the importance of avoiding recreational drug use due to potential neurotoxicity and interactions with prescribed medications. 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 websites http_s://www.nim h.nih.gov/health /topics/mental-h ealth-medication s http_s://www.nam i.org/About-Ment al-Illness/Treat ments/Mental-Hea lth-Medications http_s://www.nam i.org/About-Ment al-Illness/Menta l-Mclvym-Bwnjwaw ons http_s://psychce iSell.comcom/evin fay/the-cogniti qv-wnevgegn-tv-d epression#treatm ents http__s://www.ni .nih.gov/healt h/topics/mental- health-medicatio ns http__s://www.na mi.org/About-Men camelia-Illness/Marissa tments/Mental-He alth-Medications http_s://shreya.ni h.gov/publicatio ns/drugfacts/can nabis-marijuana http_s://www.[employer]/can vbahc-wjj-udvlzk qu-bllnjcseu-pya d/ Plan Of Treatment Next Appt Details Provider Name:Kaylie montemayor, 10/22/2025 08:00:00 AM, [address], [address], [place], [address], Provider Name:Stella Paige , 11/08/2025 11:15:00 AM, [address], [address], [place], [address], Provider Name:Stella Gibson , 12/09/2025 11:15:00 AM, [address], [address], [place], [address], Provider Name:Stella Gibson , 01/10/2026 11:15:00 AM, [address], [address], [place], [address], Provider Name:Stella Gibson , 02/07/2026 11:15:00 AM, [address], [address], [place], [address], Provider Name:Stella Gibson , 03/10/2026 11:15:00 AM, [address], [address], [place], [address], Provider Name:Stella Paige , 04/08/2026 11:15:00 AM, [address], [address], [place], [address], Provider Name:Stella Gibson , 05/09/2026 11:15:00 AM, [address], [address], [place], [address], Provider Name:Stella Gibson , 06/08/2026 11:15:00 AM, [address], [address], [place], [address], Provider Name:Stella Paige , 07/08/2026 11:15:00 AM, [address], [address], [place], [address], Provider Name:Stella Gibson , 08/08/2026 11:15:00 AM, [address], [address], [place], [address], Provider Name:Stella Gibson , 09/07/2026 11:15:00 AM, [address], [address], [place], [address], Provider Name:Stella Gibson , 10/07/2026 11:15:00 AM, [address], [facility] [address], [place], [address], Insurance Providers Payer Name Payer Address Payer Phone Subscriber Number Group Number Insured Name Patient Relationship to Insured Coverage Start Date Coverage End Date [employer] [address] [place] [phone] [id number] UrsulaLori lloyd Self - patient is the insured Medical (General) History Medical History History ICD Code Past Psychiatric History: An xiety Disorder,Major Depressive Episode,Bipolar Disorder abdominal aortic aneurysm: No atrial fibrillation: No chronic fatigue syndrome: No essential tremor: No hyperlipidemia: No hypertension: No Parkinson's disease: No restless leg syndrome: No stroke: No subdural hematoma: No type 1 diabetes mellitus: No type 2 diabetes mellitus: No vitamin B12 deficiency: No vitamin D deficiency: No
--- NOTE | 2025-10-10 10:30 | PC.NURSE ---
Dr. Pappas at bedside assessing pt.
[2025-10-10 10:31] LABS: Beta HCG Quantitative 30.41 mIU/ML
[2025-10-10 10:44] VITALS: BP 115/64; PULSE 83; RESP 14; O2SAT 97
[2025-10-10 11:01] LABS: Add Urine Microscopic? YES; Appearance Urine Clear (Clear); Glucose Urine UA Negative (Negative); Leukocyte Esterase Ur 1+ LEU/UL (Negative); Need Manual Microscopic Reviewed; Nitrate Urine Negative (Negative); Non Pathogenic Casts 0-2; Specific Grav Ur 1.016 (1.001-1.035)
--- NOTE | 2025-10-10 11:54 | PC.NURSE ---
Pt. at ultrasound.
[2025-10-10 12:20] VITALS: BP 114/72; PULSE 82; RESP 14; O2SAT 98
--- NOTE | 2025-10-10 12:25 | PC.NURSE ---
Dr. Pappas at bedside going over d/c instructions with pt. All questions answered.
[2025-10-11 11:50] LABS: BEDSIDEPREGUCG Negative (Negative)
== END 2025-10-10 12:39 | disposition home or self-care (01) ==
PROVIDERS: Emergency Medicine; Emergency Provider Emergency Medicine; PCP Physician Assistant
DX: O20.0 Threatened abortion (principal); Z3A.01 Less than 8 weeks gestation of pregnancy; R82.998 Other abnormal findings in urine
CPT/HCPCS: 36415; 76801; 80053; 81001; 81025; 84702; 85025; 85461; 85610; 85730; 86850; 86900; 86901; 87086; 99284